=== PATIENT | female | born 1985 | race Two or more races ===

== ENCOUNTER 2024-08-23 20:25 | Emergency (ER) | payer MEDICAID, OTHER ==
[~2024-08-23] VITALS: Ht 154.9 cm; Wt 81.7 kg
[2024-08-23] MEDS ORDERED: FUROSEMIDE 40 MG/4 ML VIAL IV ONE (20:45)
--- NOTE | 2024-08-23 20:55 | ED.PDOC ---
Musculoskeletal HPI Comments 39 y/o developmentally delayed F, with a history of CHF on Lasix and CKF, is BIBA for c/o bilateral leg pain and swelling. Per EMS report, patient is a resident of a board and care assisted living facility and called for additional sudden and unprovoked onset of 9/10 pain following a 4x day history of swelling to her legs. Vitals were noted to have been stable and within normal limits, with exception of being slightly tachycardic. Staff at facility endorses on patient being compliant with her Lasix. At time of assessment, patient also endorses of neck pain and generalized bodyaches. She denies any chest pain, shortness of breath, palpitations, numbness, tingling, fever, chills, or further associated symptoms. Chief Complaint: Lower Extremity Time Seen by MD: 20:40 Reviewed Notes: Nurses Notes, Esl Professor Notes, Medications, Allergies Allergies: Coded Allergies: NO KNOWN ALLERGIES (Unverified , 08/23/24) Information Source: Patient, Emergency Med Personnel Mode of Arrival: EMS Location: Bilateral Extremity Location: Leg Timing: Days Prehospital treatment: 12 Lead EKG, Accucheck, Operator Technician Severity: Moderate Able to Move Extremity: Yes Bear Weight: Limited Pain: Moderate Mechanism: Spontaneous Circumstances: Spontaneous Onset of Symptoms: Spontaneous Symptoms: Swelling, Pain DVT Risk Factors: CHF Last Tetanus: Unknown Review of Systems: REVIEW OF SYSTEMS: No fever, no chills, or fatigue HEENT: No sore throat, no earache, no congestion, no neck pain. Cardiac: No chest pain. No palpitations. Lungs: No shortness of breath, no cough. GI: No nausea, no vomiting, no diarrhea, no constipation, no abdominal pain : No dysuria, frequency, or urgency. No hematuria. Musculoskeletal: Bilateral leg pain and swelling. Neck pain. Generalized bodyaches. No joint pain , no joint swelling, no extremity edema. Skin: No rash, no itching. Neuro: No headache, no dizziness, no weakness Vital Signs Vital Signs Date Time Temp Pulse Resp B/P (MAP) Pulse Ox O2 Delivery O2 Flow Rate FiO2 08/23/24 20:55 103 08/23/24 20:38 98.3 18 127/79 (95) 100 98.3 Physical Exam General: Awake, alert and oriented. No acute distress. Skin: Skin in warm, dry and intact. Appropriate color for ethnicity. HEENT: The head is normocephalic and atraumatic. Conjunctivae are clear without exudates or hemorrhage. Sclera is non-icteric. EOM are intact. No signs of nystagmus. Eyelids are normal in appearance without swelling or lesions. Oral mucosa is pink and moist Neck: The neck is supple with normal range of motion. No JVD. Cardiac: Heart rate and rhythm are normal. No murmurs, gallops, or rubs are auscultated. Respiratory: No signs of respiratory distress. Lung sounds are clear in all lobes bilaterally without rales, rhonchi, or wheezes. Abdominal: Abdomen is soft, non-tender without distention, guarding or rigidity. Bowel sounds are present and normoactive in all four quadrants. Extremities: 1+ pitting edema to bilateral lower extremities. Otherwise, upper and lower extremities are atraumatic in appearance without deformity. Upper extremities without edema Neurological: The patient is awake, alert and oriented to person, place, and time with normal speech. Speech is clear. There is no facial asymmetry. Psychiatric: Appropriate mood and affect. Good judgement and insight. Past Medical History PAST MEDICAL HISTORY: CHF (on Lasix), CKF Past Medical History (Other): developmental delay obese Surgical History: Denies all surgeries GENERAL SURGEON History: Denies all GENERAL SURGEON Hx Family History Family History: Unknown Social History Smoker: Non-Smoker Alcohol: Denies ETOH Use Drugs: Denies Drug Use Lives In: Assisted Care ([facility] and care facility) Was a procedure done? Was a procedure done?: No EKG EKG : Pulse Rate (adult): 103 [place]: Normal Cardiac Rhythm: ST Block: None Hypertrophy: None ST: Normal Comments QTC 540 No STEMI Differential Diagnosis EXT Differential Diagnosis: Cellulitis, CHF, Deep Vein Thrombosis, Sprain, Contusion, Strain, Neurovascular injury X-Ray, Labs, Meds, VS Vital Signs Date Time Temp Pulse Resp B/P (MAP) Pulse Ox O2 Delivery O2 Flow Rate FiO2 08/23/24 20:55 103 08/23/24 20:43 103 08/23/24 20:38 98.3 101 18 127/79 (95) 100 98.3 Lab Test 08/23/24 21:02 Range/Units White Blood Count 5.2 4.4-10.8 10^3/uL Red Blood Count 3.02 L 4.0-5.20 10^6/uL Hemoglobin 9.9 L 12.2-16.2 g/dL Hematocrit 29.5 L 36.0-46.0 % Mean Corpuscular Volume 97.5 80.0-100.0 fL Mean Corpuscular Hemoglobin 32.8 H 28.0-32.0 pg Mean Corpuscular Hemoglobin Concent 33.7 32.0-36.0 g/dL Red Cell Distribution Width 13.2 11.8-14.3 % Platelet Count 115 L 140-450 10^3/uL Mean Platelet Volume 9.2 6.9-10.8 fL Neutrophils (%) (Auto) 57.2 37.0-80.0 % Lymphocytes (%) (Auto) 31.6 10.0-50.0 % Monocytes (%) (Auto) 10.1 0.0-12.0 % Eosinophils (%) (Auto) 0.8 0.0-7.0 % Basophils (%) (Auto) 0.3 0.0-2.0 % Neutrophils # (Auto) 3.0 1.6-8.6 10 ^3/uL Lymphocytes # (Auto) 1.7 0.4-5.4 10 ^3/uL Monocytes # (Auto) 0.5 0-1.3 10 ^3/uL Eosinophils # (Auto) 0 0-0.8 10 ^3/uL Basophils # (Auto) 0 0-0.2 10 ^3/uL Nucleated Red Blood Cells 0.1 % Sodium Level 143 136-145 mmol/L Potassium Level 3.2 L 3.5-5.1 mmol/L Chloride Level 109 H 98-107 mmol/L Carbon Dioxide Level 23 20-31 mmol/L Anion Gap 11 5-15 Blood Urea Nitrogen 20 9-23 mg/dL Creatinine 1.27 H 0.550-1.02 mg/dL Glomerular Filtration Rate Calc 54 >90 mL/min BUN/Creatinine Ratio 15.7 10.0-20.0 Serum Glucose 81 74-106 mg/dL Calcium Level 7.7 L 8.7-10.4 mg/dL B-Type Natriuretic Peptide 69.27 0-100 pg/mL Time of 1ST Reevaluation: 21:10 Reevaluation 1ST: Unchanged Patient Education/Counseling: Treatment Family Education/Counseling: No Family Present Departure 1 Departure Time of Disposition: 00:28 Impression: Primary Impression: Peripheral edema Additional Impression: Hypokalemia Disposition: 01 HOME / SELF CARE / HOMELESS Condition: Stable Additional Instructions: ED DISCHARGE INSTRUCTIONS Instructions: Please read all instructions provided in this packet carefully. Although you have been discharged from the Emergency Department, this does not mean that you have a "clean bill of health". []No definitive diagnosis for your symptoms has been made today. It is possible that you are in the process of developing a serious illness. This is why you must return to the ED without fail if any new or worsening symptoms (especially if your symptoms include chest pain, trouble breathing, abdominal pain, fever, headache, confusion, trouble seeing, or trouble walking) It is also very important that you see a primary care doctor within the next 3-5 days to follow up. If you are unable to get an appointment, return to the ED for re-evaluation. PERIPHERAL EDEMA EDUCATION Edema is the medical term for swelling caused by a collection of fluid in the spaces that surround the body's tissues and organs. Edema can occur nearly anywhere in the body. Some of the most common sites are: ?The lower legs or hands (also called peripheral edema) ?Abdomen (also called ascites) ?Chest (called pulmonary edema if in the lungs, and pleural effusion if in the space surrounding the lungs) Ascites and peripheral edema can be uncomfortable and can be a sign of a more serious condition. Pulmonary edema, which makes it difficult to breathe and can be life threatening, is a symptom of heart failure and is discussed in more detail separately. (See "Patient education: Heart failure (Beyond the Basics)".) EDEMA SYMPTOMS Symptoms of edema depend upon the cause but may include: ?Swelling or puffiness of the skin, causing it to appear stretched and shiny. This typically is worse in the areas of the body that are closest to the ground (because of gravity). Therefore, edema is generally the worst in the lower legs (called peripheral edema) after walking about, standing, sitting in a chair for a period of time, or at the end of the day. It accumulates in the lower back (called sacral edema) after being in bed for several hours. Pushing on the swollen area for a few seconds will leave a temporary dimple or dent in the skin (figure 1). ?Increased size of the abdomen (with ascites). ?Difficulty breathing (with edema in the chest). CONDITIONS ASSOCIATED WITH EDEMA A number of different problems can cause edema. Chronic venous disease A common cause of edema in the lower legs is chronic venous disease, a condition in which the veins in the legs cannot pump enough blood back up to the heart because the valves in the veins are damaged. This can lead to fluid collecting in the lower legs, thinning of the skin, and, in some cases, development of skin sores (ulcers). (See "Patient education: Lower extremity chronic venous disease (Beyond the Basics)".) Edema can also develop as a result of a blood clot in the deep veins of the lower leg (called deep vein thrombosis [DVT]). In this case, the edema is mostly limited to the feet or ankles and usually affects only one side (the left or ri ght); other conditions that cause edema usually cause swelling of both legs. (See "Patient education: Deep vein thrombosis (DVT) (Beyond the Basics)".) women retain extra fluid. Swelling commonly develops in the hands, feet, and face, especially near the end of a normal . Swelling without other symptoms and findings is common and is not usually a sign that a complication, such as preeclampsia (sometimes called toxemia), has developed. (See "Patient education: Preeclampsia (Beyond the Basics)".) Monthly menstrual periods Edema in women that occurs in a cyclic pattern (usually once per month) can be the result of hormonal changes related to the menstrual cycle. This type of edema is common but does not require treatment, because it resolves on its own. Drugs Edema can be a side effect of a variety of medications, including some oral diabetes medications, high blood pressure medications, non-prescription pain relievers (such as ibuprofen), and estrogens. Kidney disease The edema of kidney disease can cause swelling in the lower legs and around the eyes. (See "Patient education: Chronic kidney disease (Beyond the Basics)".) Heart failure Heart failure, also called congestive heart failure, is due to a weakened heart, which impairs its pumping action. Heart failure can cause swelling in the legs and abdomen, as well as other symptoms. Heart failure can also cause fluid to accumulate in the lungs (pulmonary edema), causing shortness of breath. This can be a very dangerous condition requiring emergency treatment. (See "Patient education: Heart failure (Beyond the Basics)".) Cirrhosis Cirrhosis is scarring of the liver from various causes, which can obstruct blood flow through the liver. People with cirrhosis can develop pro nounced swelling in the abdomen (ascites) or in the lower legs (peripheral edema). (See "Patient education: Cirrhosis (Beyond the Basics)".) Travel Sitting for prolonged periods, such as during air travel, can cause swelling in the lower legs. This is common and is not usually a sign of a problem. The table provides tips to minimize leg swelling during travel (table 1). If your leg(s) remain swollen or you develop leg pain hours or days after the flight, contact your healthcare provider. Continued swelling and pain can be signs of a blood clot (DVT). (See "Patient education: Deep vein thrombosis (DVT) (Beyond the Basics)".) Angioedema Reactions to some medications and some inherited disorders can cause fluid to leak out of the blood vessels into surrounding tissues (angioedema). This can cause rapid swelling in the face, lips, tongue, mouth, throat, voice box, limbs, or genitals. Symptoms may include hoarse voice, throat tightness, and difficulty swallowing. Swelling of the throat can interfere with breathing and may be life threatening. Sometimes, this type of swelling occurs in the bowel (the intestinal wall) and can result in abdominal pain. Lymphedema Surgical removal of lymph nodes for the treatment of cancer (most commonly breast cancer) can cause swelling of a limb or limbs with thickening of the skin on the side of the surgery. Swelling of both legs because of lymph problems can also be an inherited condition that becomes apparent in childhood or young adulthood. Lymphedema can also be caused by infection, trauma, or obesity. DIAGNOSING THE CAUSE OF EDEMA If you develop new swelling in one or both of your legs, hands, in your abdomen, or around your eyes, you should call your healthcare provider to determine if you need to be evaluated. (See "Clinical manifestations and evaluation of edema in adults".) If you develop a sudden onset of swelling in the lips, tongue, or mouth, especially if it affects your ability to talk or breathe, you should go to an emergency department immediately. EDEMA TREATMENT Treatment of edema includes several components: treatment of the underlying cause (if possible), reducing the amount of salt (sodium) in your diet, and, in many cases, use of a medication called a diuretic to eliminate excess fluid. Using compression stockings and elevating the legs may also be recommended. (See "General principles of the treatment of edema in adults".) Not all types of edema require treatment. Edema related to or menstrual cycles is not usually treated. Peripheral edema and ascites are usually treated slowly to minimize the side effects of rapid fluid loss (such as low blood pressure). Reduce salt (sodium) in your diet Sodium, which is found in table salt and processed foods, can worsen edema. Reducing the amount of salt you consume can help to reduce edema, especially if you also take a diuretic. Guidelines on how to reduce sodium are available separately. (See "Patient education: Low-sodium diet (Beyond the Basics)".) Diuretics Diuretics are a type of medication that causes the kidneys to excrete more water and sodium, which can reduce edema. Diuretics must be used with care because removing too much fluid too quickly can lower the blood pressure, cause lightheadedness or fainting, and impair kidney function. You may have to empty your bladder more frequently after taking a diuretic. However, other side effects are uncommon when diuretics are taken at the recommended dose. Compression stockings Leg edema can be prevented and treated with the use of compression stockings. Stockings are available in several heights, including knee-high, thigh-high, and pantyhose. Knee-high stockings are sufficient for most patients. Some stockings can cause skin irritation or pain, although proper measurement and fitting of the stockings can reduce the risk of discomfort. More detailed compression stocking tips are available in the table (table 2 and figure 2A-C). Effective compression stockings apply the greatest amount of pressure at the ankle and gradually decrease the pressure up the leg. These stockings are available with varying degrees of compression. ?Stockings with small amounts of compression can be purchased at pharmacies and surgical supply stores without a prescription. ?People with moderate to severe edema, those on their feet a lot, and those with ulcers usually require prescription stockings. A healthcare provider may take measurements for stockings or may write a prescription for stockings and then have a surgical supply or specialty store take the necessary measurements. ?The white "antiembolism" stockings commonly given in the hospital do not apply enough pressure at the ankle and are not adequate treatment for edema. Body positioning Leg, ankle, and foot edema can be improved by elevating the legs above heart level for 30 minutes three or four times per day. Elevating the legs may be sufficient to reduce or eliminate edema for people with mild venous disease, but more severe cases require other measures. In addition, it may not be practical for those who work to elevate their legs several times per day. Author: Gonzalo Otto MD Section Urgent Care Technician: Jimi Fairchild MD [place] Editors: Isi Oliveros MD, Heather Carpio MD, MSc All topics are updated as new evidence becomes available and our peer review process is complete. Literature review current through: Nov 2023. This topic last updated: Oct 06, 2022. Please read the Disclaimer at the end of this page. Disclaimer: This generalized information is a limited summary of diagnosis, treatment, and/or medication information. It is not meant to be comprehensive and should be used as a tool to help the user understand and/or assess potential diagnostic and treatment options. It does NOT include all information about conditions, treatments, medications, side effects, or risks that may apply to a specific patient. It is not intended to be medical advice or a substitute for the medical advice, diagnosis, or treatment of a health care provider based on the health care provider's examination and assessment of a patient's specific and unique circumstances. Patients must speak with a health care provider for complete information about their health, medical questions, and treatment options, including any risks or benefits regarding use of medications. This information does not endorse any treatments or medications as safe, effective, or approved for treating a specific patient. [employer] and its affiliates disclaim any warranty or liability relating to this information or the use thereof. The use of this information is governed by the Terms of Use, available at https://www.woltersRodatiuwer.com/en/know/apgoehip-zbqwdgsnjosfb-gtpes. 2023 [employer] and its affiliates and/or licensors. All rights reserved. Topic 4413 Version 25.0 e-Prescriptions Potassium Chloride (Klor-Con M10) 10 Meq Tab 1 TAB PO DAILY for 7 Days, #7 TAB 5 Refills Prov: AGUSTÍN CARMONA MD 08/24/24 Elastic Bandages & Supports (MEDICAL COMPRESSION STOCK) Stocking Mis UNITS XX, #2 Prov: AGUSTÍN CARMONA MD 08/24/24 Comments 39-year-old female with history of CHF presents to the emergency department with bilateral lower extremity edema. Chest x-ray, labs not consistent with acute CHF exacerbation. Do not suspect DVT. Patient is not hypoxic, in respiratory distress and reporting no dyspnea. Patient reports improvement of symptoms during the ED observation, she would like to go home. Patient well-appearing, nontoxic. Advised prompt follow-up with PCP, return to the ED with any new, worsening or concerning symptoms. ------ I reviewed the following notes from the pt's past medical encounters: N/A The following tests were ordered, and results were reviewed by me: (See diagnostic results section) The following test were independently interpreted by me: N/A Additional information was gathered from interviewing the following independent historians: EMS personnel I reviewed and agreed with the following test results read by other providers: N/A I discussed treatments and results with patient Decision regarding hospitalization or escalation of hospital level of care: Risks and benefits of admission for further treatment of patient's condition was considered however due to patient's stable condition patient will be discharged to follow up closely or return to care for worsening of condition or inability to follow up. Critical Care Note Critical Care Time?: No Stability Stability form required: No Heart Score Heart Score: Heart Score Response (Comments) Value History N/A 0 EKG N/A 0 Age N/A 0 Risk Factors N/A 0 Troponin N/A 0 Total 0 I personally scribed for AGUSTÍN CARMONA MD ([email or web address]) on 08/23/24 at 20:55. Electronically submitted by David Sagastume ([email or web address]). AGUSTÍN CARMONA MD Aug 23, 2024 20:55
[2024-08-23 21:21] LABS: Basophils # (auto) 0 10 ^3/uL (0-0.2); Basophils % (auto) 0.3 % (0.0-2.0); Eosinophils # (auto) 0 10 ^3/uL (0-0.8); Eosinophils % (auto) 0.8 % (0.0-7.0); Hematocrit 29.5 % (36.0-46.0); Hemoglobin 9.9 g/dL (12.2-16.2); Lymphocytes # (auto) 1.7 10 ^3/uL (0.4-5.4); Lymphocytes % (auto) 31.6 % (10.0-50.0); Mean Corpuscular Hemoglobin 32.8 pg (28.0-32.0); Mean Corpuscular Hgb Conc. 33.7 g/dL (32.0-36.0); Mean Corpuscular Volume 97.5 fL (80.0-100.0); Monocytes # (auto) 0.5 10 ^3/uL (0-1.3); Monocytes % (auto) 10.1 % (0.0-12.0); Neutrophils % (auto) 57.2 % (37.0-80.0); Nucleated Red Blood Cells % 0.1 %; Platelet Count (auto) 115 10^3/uL (140-450); Red Blood Cells 3.02 10^6/uL (4.0-5.20); Red Cell Distribution Width 13.2 % (11.8-14.3); White Blood Cell 5.2 10^3/uL (4.4-10.8)
[2024-08-23 21:27] LABS: Sodium 143 mmol/L (136-145)
[2024-08-23 21:28] LABS: Anion Gap 11 (5-15); Carbon Dioxide 23 mmol/L (20-31)
[2024-08-23 21:33] LABS: BUN/Creatinine Ratio 15.7 (10.0-20.0); Blood Urea Nitrogen 20 mg/dL (9-23); Glucose 81 mg/dL (74-106)
[2024-08-23 21:47] LABS: Calcium 7.7 mg/dL (8.7-10.4); Chloride 109 mmol/L (98-107); Potassium 3.2 mmol/L (3.5-5.1)
[2024-08-24] MEDS ORDERED: ELAS-2314 XX (00:28)
[2024-08-24] MEDS ORDERED: POTA-215 PO (00:28)
[2024-08-24 00:34] VITALS: BP 108/66; PULSE 94; RESP 14; TEMP 97.3; O2SAT 100
[2024-08-24] MEDS: FUROSEMIDE 40 MG TAB PO ONE (00:41)
[2024-08-24] MEDS: ACETAMINOPHEN 325 MG TAB PO ONE (00:41)
[2024-08-24] MEDS: POTASSIUM CHL 20 Meq TABLET PO ONE (00:41)
--- NOTE | 2024-08-24 00:42 | DVH ---
CHEST RADIOGRAPH Indication: Rule out CHF, SOB Technique: Frontal and lateral view of the chest was obtained Comparison: None FINDINGS/IMPRESSION: The lungs are clear. The cardiomediastinal silhouette is unremarkable. No pleural effusion or pneumo thorax. No acute osseous abnormality.
--- NOTE | 2024-08-24 07:17 | ECG ---
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
== END 2024-08-24 02:04 | disposition home or self-care (01) ==
LOC: EDBD 20:25 → ER 20:25
DX: R60.0 Localized edema (principal); E87.6 Hypokalemia; N18.9 Chronic kidney disease, unspecified; I50.9 Heart failure, unspecified; E66.9 Obesity, unspecified; Z68.34 Body mass index [BMI] 34.0-34.9, adult
CPT/HCPCS: 36415; 71046; 80048; 83880; 85025; 93005

== ENCOUNTER 2024-08-28 22:51 | Inpatient (IN) | payer MEDICAID ==
[~2024-08-28] VITALS: Ht 160 cm; Wt 91.0 kg
[~2024-08-28 22:51] MED LIST: ELAS-2314 XX; POTA-215 PO
--- NOTE | 2024-08-28 23:15 | ED.PDOC ---
History of Present Illness HPI Comments 39-year-old, obese and developmentally delayed female is brought in by ambulance from alf for chest pain and shortness of breath. Symptoms began, suddenly and unprovoked, this evening. Pain is nonradiating and localized in her upper sternum. Patient has a history of CHF - on Lasix, CKF, HLD, HTN, hypothyroidism, bipolar disorder, and schizophrenia. Vitals were noted to have been stable within normal limits. Patient denies having any cough, congestion, nausea, vomiting, fever, chills, or further associated symptoms. Time Seen by MD: 23:10 Reviewed Notes: Nurses Notes, Hearing Specialist Notes, Medications, Allergies Allergies: Coded Allergies: NO KNOWN ALLERGIES (Unverified , 08/23/24) Home Meds Active Scripts Potassium Chloride (Klor-Con M10) 10 Meq Tab, 1 TAB PO DAILY for 7 Days, #7 TAB 5 Refills Prov:AGUSTÍN CARMONA MD 08/24/24 Elastic Bandages & Supports (MEDICAL COMPRESSION STOCK) Stocking Mis, UNITS XX, #2 Prov:AGUSTÍN CARMONA MD 08/24/24 Information Source: Patient, Emergency Med Personnel Mode of Arrival: EMS Severity: Moderate Timing: Hours Duration: Since onset Prehospital treatment: 12 Lead EKG, Thermograph Operator Past Medical History PAST MEDICAL HISTORY: CHF, CKF, High Lipids, HTN, Schizophrenia, Thyroid (Hypothyroidism) Past Medical History (Other): Developmental delay Bipolar disorder Surgical History: Denies all surgeries [employer] History: Denies all [employer] Hx Family History Family History: Unknown Social History Smoker: Non-Smoker Alcohol: Denies ETOH Use Drugs: Denies Drug Use Lives In: Assisted Care (skilled nursing) All Other Systems: Reviewed and Negative (Comprehensive systems review obtained and negative except for what is stated in the HPI.) Physical Exam General Appearance: No Apparent Distress, Obese, Other (Appear uncomfortable ) HEENT: Normal ENT Inspection, Pharynx Normal, TMs Normal Neck: Full Range of Motion, Non-Tender, Normal, Normal Inspection Respiratory: Chest Non-Tender, Lungs Clear, No Accessory Muscle Use, No Respiratory Distress, Normal Breath Sounds Cardiovascular: No Edema, No JVD, No Murmur, No Gallop, Normal Peripheral Pulses, Regular Rate/Rhythm Breast Exam: Deferred Gastrointestinal: No Organomegaly, Non Tender, No Pulsatile Mass, Normal Bowel Sounds, Soft Genitalia: Deferred Pelvic: Deferred Rectal: Deferred Extremities: No calf tenderness, Normal capillary refill, Normal inspection, Normal range of motion, Non-tender, No pedal edema Musculoskeletal : Apperance: Normal Neurologic: Alert, floor representative II-XII nml as Tested, No Motor Deficits, Normal Affect, Normal Mood, No Sensory Deficits Cerebellar Function: Normal Reflexes: Normal Skin: Dry, Normal Color, Warm Lymphatic: No Adenopathy Was a procedure done? Was a procedure done?: No EKG EKG : Pulse Rate (adult): 109 [place]: Normal Cardiac Rhythm: ST Block: None Hypertrophy: None ST: Normal Differential Dx Considerations may include: Acute CHF exacerbation, MO, PE, ACS, URI, pneumonia, anxiety, angina, costochondritis, pericarditis, viral syndrome, among others X-Ray, Labs, Meds, VS Vital Signs Date Time Temp Pulse Resp B/P (MAP) Pulse Ox O2 Delivery O2 Flow Rate FiO2 08/29/24 00:00 108 23 133/83 (100) 96 08/28/24 23:20 97.8 108 20 126/79 (95) 95 97.8 08/28/24 23:20 108 20 95 Room Air* 0 21 08/28/24 23:15 109 08/28/24 23:01 97.7 106 20 125/77 (93) 97 97.7 08/28/24 23:00 109 Lab Test 08/29/24 00:40 08/29/24 00:12 08/29/24 00:05 08/28/24 23:23 Range/Units Troponin I High Sensitivity Pending 3 L </=34 ng/L POC Glucose 101 70-106 mg/dl Urine Color Colorless Yellow Urine Clarity Clear Clear Urine pH 6.5 5.0-9.0 Urine Specific [place] 1.004 1.001-1.035 Urine Protein Negative Negative Urine Ketones Negative Negative Urine Blood Negative Negative /uL Urine Nitrite Negative Negative Urine Bilirubin Negative Negative Urine Urobilinogen Normal Negative mg/dL Urine Leukocyte Esterase Negative Negative /uL Urine RBC <1 0 - 4 /hpf Urine Microscopic WBC < 1 0-5 /HPF Urine Squamous Epithelial Cells Few <5 /hpf Urine Bacteria None seen None Seen /hpf Urine Glucose Normal Normal mg/dL White Blood Count 6.3 4.4-10.8 10^3/uL Red Blood Count 3.00 L 4.0-5.20 10^6/uL Hemoglobin 9.8 L 12.2-16.2 g/dL Hematocrit 29.0 L 36.0-46.0 % Mean Corpuscular Volume 96.5 80.0-100.0 fL Mean Corpuscular Hemoglobin 32.8 H 28.0-32.0 pg Mean Corpuscular Hemoglobin Concent 34.0 32.0-36.0 g/dL Red Cell Distribution Width 13.1 11.8-14.3 % Platelet Count 118 L 140-450 10^3/uL Mean Platelet Volume 9.7 6.9-10.8 fL Neutrophils (%) (Auto) 59.8 37.0-80.0 % Lymphocytes (%) (Auto) 29.4 10.0-50.0 % Monocytes (%) (Auto) 9.4 0.0-12.0 % Eosinophils (%) (Auto) 0.9 0.0-7.0 % Basophils (%) (Auto) 0.5 0.0-2.0 % Neutrophils # (Auto) 3.8 1.6-8.6 10 ^3/uL Lymphocytes # (Auto) 1.9 0.4-5.4 10 ^3/uL Monocytes # (Auto) 0.6 0-1.3 10 ^3/uL Eosinophils # (Auto) 0.1 0-0.8 10 ^3/uL Basophils # (Auto) 0 0-0.2 10 ^3/uL Nucleated Red Blood Cells 0.0 % Sodium Level 141 136-145 mmol/L Potassium Level 3.4 L 3.5-5.1 mmol/L Chloride Level 105 98-107 mmol/L Carbon Dioxide Level 25 20-31 mmol/L Anion Gap 11 5-15 Blood Urea Nitrogen 17 9-23 mg/dL Creatinine 1.23 H 0.550-1.02 mg/dL Glomerular Filtration Rate Calc 57 >90 mL/min BUN/Creatinine Ratio 13.8 10.0-20.0 Serum Glucose 90 74-106 mg/dL Calcium Level 6.7 L 8.7-10.4 mg/dL [facility] [id number] [facility] [address] Ph: [phone] DIAGNOSTIC IMAGING Diagnostic Imaging Report : [id number] Signed PATIENT: CHAD CONKLIN ACCT: [id number] UNIT: [id number] : 1985 LOC: ER ROOM / BED: / AGE / SEX: 39 / F ADM STATUS: REG ER SERVICE 1113 ORDERING PHYSICIAN: ТАТЬЯНА REZA MD PROCEDURE(s): CXRP - CHEST PORTABLE REASON: chest pain ORDER NUMBER(s): [id number], ACCESSION NUMBER(s): [id number] CHEST RADIOGRAPH Indication: chest pain Technique: Single frontal view of the chest was obtained COMPARISON: None FINDINGS: Lines and Tubes: None Lungs: Clear Pleura: No effusion. No pneumothorax. Cardiomediastinal contours: Unremarkable Bones: Unremarkable IMPRESSION: 1. No acute disease. ATED BY: MURALI ESPINOSA MD DICTATED DATE/TIME: 08/29/2418 SIGNED BY: MURALI ESPINOSA MD SIGNED DATE/TIME: 08/29/2418 CC: Time of 1ST Reevaluation: 23:40 Reevaluation 1ST: Unchanged Patient Education/Counseling: Diagnosis, Treatment Family Education/Counseling: No Family Present Additional Information Previous visits reviewed: August 23, 2024 encounter for peripheral edema The following tests were ordered, and results were reviewed by me: EKG, chest x-ray, CBC, BNP, BMP UA, troponin Additional Information was gathered from interviewing the following independent historians: EMS I reviewed and agreed with the following test results read by other providers: Chest x-ray I discussed treatment and results with medical personnel and: patient SEPSIS Sepsis Screen Physician Orders Electrocardigram (08/28/24 23:14) Chest Portable (08/28/24 23:15) Troponin-I Hs (08/29/24 00:15) Troponin-I Hs (08/29/24 02:15) Vital Signs Date Time Temp Pulse Resp B/P (MAP) Pulse Ox O2 Delivery O2 Flow Rate FiO2 08/29/24 00:00 108 23 133/83 (100) 96 08/28/24 23:20 97.8 108 20 126/79 (95) 95 97.8 08/28/24 23:20 108 20 95 Room Air* 0 21 08/28/24 23:15 109 6/23/25 23:01 97.7 106 20 125/77 (93) 97 97.7 08/28/24 23:00 109 Laboratory Tests Test 08/28/24 23:23 White Blood Count 6.3 10^3/uL (4.4-10.8) Departure 1 Departure Time of Disposition: 01:12 (Patient with a worsening chest is clear and shortness of breath. Give patient has many comorbidities. We will admit patient for further workup and expert consultation) Impression: Primary Impression: Acute chest pain Additional Impressions: Shortness of breath Hypocalcemia Disposition: ADMITTED INPATIENT Admit to: Med Surg Condition: Guarded Critical Care Note Critical Care Time?: Yes Critical care comment: Acute chest pain Authorized and Performed by: Татьяна Reza MD Total critical care time: Approximately 38 minutes Due to a high probability of clinically significant, life threatening deterioration, the patient required my highest level of preparedness to intervene emergently and I personally spent this critical care time directly and personally managing the patient. This critical care time included obtaining a history; examining the patient; pulse oximetry; ordering and review of studies; arranging urgent treatment with development of a management plan; evaluation of patient's response to treatment; frequent reassessment; and, discussions with o ther providers. This critical care time was performed to assess and manage the high probability of imminent, life-threatening deterioration that could result in multi-organ failure. It was exclusive of separately billable procedures and treating other patients and teaching time. Please see my other sections and the rest of the note for further information on patient assessment and treatment. Stability Stability form required: No Heart Score Heart Score: Heart Score Response (Comments) Value History Moderate Suspicious 1 EKG Repolarization Disturb 1 Age <45 0 Risk Factors >3 or Hx ASHD 2 Troponin Normal limit 0 Total 4 I personally scribed for ТАТЬЯНА REZA MD ([email or web address]) on 08/28/24 at 23:15. Electronically submitted by David Sagastume ([email or web address]). I personally scribed for ТАТЬЯНА REZA MD ([email or web address]) on 08/29/24 at 01:09. Electronically submitted by David Sagastume ([email or web address]). ТАТЬЯНА REZA MD Aug 28, 2024 23:15
[2024-08-28 23:20] VITALS: PULSE 108; RESP 20; O2SAT 95
[2024-08-28 23:37] LABS: Basophils # (auto) 0 10 ^3/uL (0-0.2); Basophils % (auto) 0.5 % (0.0-2.0); Eosinophils # (auto) 0.1 10 ^3/uL (0-0.8); Eosinophils % (auto) 0.9 % (0.0-7.0); Hemoglobin 9.8 g/dL (12.2-16.2); Lymphocytes # (auto) 1.9 10 ^3/uL (0.4-5.4); Lymphocytes % (auto) 29.4 % (10.0-50.0); Mean Corpuscular Hemoglobin 32.8 pg (28.0-32.0); Mean Corpuscular Volume 96.5 fL (80.0-100.0); Monocytes # (auto) 0.6 10 ^3/uL (0-1.3); Monocytes % (auto) 9.4 % (0.0-12.0); Neutrophils # (auto) 3.8 10 ^3/uL (1.6-8.6); Neutrophils % (auto) 59.8 % (37.0-80.0); Platelet Count (auto) 118 10^3/uL (140-450); Red Cell Distribution Width 13.1 % (11.8-14.3); White Blood Cell 6.3 10^3/uL (4.4-10.8)
[2024-08-28 23:43] LABS: Chloride 105 mmol/L (98-107); Potassium 3.4 mmol/L (3.5-5.1); Sodium 141 mmol/L (136-145)
[2024-08-28 23:44] LABS: Anion Gap 11 (5-15); Carbon Dioxide 25 mmol/L (20-31)
[2024-08-28 23:49] LABS: BUN/Creatinine Ratio 13.8 (10.0-20.0); Blood Urea Nitrogen 17 mg/dL (9-23); Glucose 90 mg/dL (74-106)
[2024-08-28 23:55] LABS: Calcium 6.7 mg/dL (8.7-10.4)
[2024-08-29] VITALS (8 sets, daily range): BP systolic 111–133; BP diastolic 63–83; PULSE 90–108; RESP 16–20; TEMP 97.5–97.8; O2SAT 94–98
[2024-08-29 00:20] LABS: Urine Bacteria None Seen /hpf (None Seen)
--- NOTE | 2024-08-29 00:22 | DVH ---
CHEST RADIOGRAPH Indication: chest pain Technique: Single frontal view of the chest was obtained COMPARISON: None FINDINGS: Lines and Tubes: None Lungs: Clear Pleura: No effusion. No pneumothorax. Cardiomediastinal contours: Unremarkable Bones: Unremarkable IMPRESSION: 1. No acute disease.
[2024-08-29 00:29] LABS: Urine Blood Negative /uL (Negative); Urine Clarity Clear (Clear); Urine Color Colorless (Yellow); Urine Protein, UAD Negative (Negative); Urine Specific Gravity 1.004 (1.001-1.035); Urine Squamous Epithelial Cell FEW /hpf (<5); Urine Urobilinogen Normal (Negative); Urine WBC < 1 /HPF (0-5); Urine pH 6.5 (5.0-9.0)
--- NOTE | 2024-08-29 03:05 | ECG ---
[facility] Test Date: 2024-08-28 Test Time: 23:00:06 Pat Name: CHAD CONKLIN Department: ED Room: 0297T Gender: F Compensation Associate: ANH : 1985 Requested By: ТАТЬЯНА REZA Order Number: [id number] Reading MD: Aniket Rojas Measurements Intervals [place] Rate: 109 P: 48 WI: 138 QRS: 76 QRSD: 99 T: 20 QT: 392 QTc: 529 Interpretive Statements Sinus tachycardia Low voltage, precordial leads Prolonged QT interval Electronically Signed On 08-29-2024 22:56:33 PDT by Aniket Rojas Please click the below link to view image of tracing.
[2024-08-29] MEDS ORDERED: MORPHINE SULFATE INJ 2 MG/ml SYRG IV PRN (03:45)
[2024-08-29] MEDS ORDERED: ALBUTEROL SULF 2.5 MG/0.5ML(0.5%) NEB SOLN NEB PRN (03:45)
[2024-08-29] MEDS ORDERED: NITROGLYCERIN 0.4 MG SL TAB SL PRN (03:45)
[2024-08-29] MEDS: SODIUM CHLORIDE 0.9% 1,000 ML IV ONE ×2 (03:45→11:43)
[2024-08-29 04:42] LABS: Amphetamine Screen, Urine Neg (NEGATIVE); Barbiturate Scree,Urine Neg (NEGATIVE); Benzodiazephine Screen, Urine Neg (NEGATIVE); Cannabinoid Screen, Urine Neg (NEGATIVE); Cocaine Screen, Urine Neg (NEGATIVE); Opiate Scree,Urine Neg (NEGATIVE); Phencyclidine Screen, Urine Neg (NEGATIVE)
[2024-08-29] MEDS: POTASSIUM EFFERVESENT TAB 25 MEQ PO ONE (05:00)
[2024-08-29] MEDS: levETIRAcetam 500 MG TAB PO ONE (05:01)
[2024-08-29 06:30] LABS: Albumin 3.8 g/dL (3.2-4.8); Alkaline Phosphatase 76 U/L (46-116); Anion Gap 11 (5-15); Aspartate Aminotransferase 23 U/L (<34); BUN/Creatinine Ratio 13.4 (10.0-20.0); Blood Urea Nitrogen 16 mg/dL (9-23); Carbon Dioxide 24 mmol/L (20-31); Chloride 106 mmol/L (98-107); Glucose 85 mg/dL (74-106); Potassium 3.9 mmol/L (3.5-5.1); Sodium 141 mmol/L (136-145); Total Protein 6.4 g/dL (5.7-8.2)
--- NOTE | 2024-08-29 06:31 | DVHHPRES ---
History of Present Illness Resident Creating Document: JIMY CASAS RESIDENT History of Present Illness Patient is a 39-year-old female with a past medical history of hypothyroidism, schizophrenia, seizure disorder, hypertension, CHF presented to the ED with a chief complaint of shortness of breath. Patient reported she lives in a detention and needs suddenly started to have shortness of breath chest pain in her upper sternal which was nonradiating, no aggravating factors. Patient denied any cough, fever, expectoration. On arrival ECG was done which showed sinus tachycardia without any acute ST or T-wave changes. Troponin Levels were within normal limits. Chest x-ray showed cardiomegaly, mild pulmonary vascular congestion but no significant changes compared to previous x-ray. Medical history as per [facility] Surgical history none Social history: Patient lives in a detention, denies any smoking, alcohol, drug use Home medications: As per the records patient is on Lasix 40 mg daily, Keppra 500 b.i.d., lisinopril, divalproex 500 mg b.i.d., schizophrenia, hypothyroidism Review of Systems Review of Systems Patient seen and examined at the bedside does not report of any chest pain or shortness of breath Reports of feeling lethargic Allergies: Coded Allergies: NO KNOWN ALLERGIES (Unverified , 08/23/24) Medications Current Medications Medications Dose Ordered Sig/Ailyn Route Start Time Stop Time Status Last Admin Dose Admin Nitroglycerin 0.4 mg Q5MINP PRN SL 08/29/24 03:45 Morphine Sulfate 2 mg Q30M PRN IV 08/29/24 03:45 Levetiracetam 500 mg BID PO 08/29/24 10:00 Divalproex Sodium 500 mg BID PO 08/29/24 10:00 Risperidone 2 mg DAILY PO 08/29/24 10:00 Levothyroxine Sodium 100 mcg QAM@0600 PO 08/29/24 06:00 Pantoprazole Sodium 40 mg DAILY@0600 PO 08/29/24 06:00 Albuterol 2.5 mg Q8HPRN PRN NEB 08/29/24 03:45 Exam Vital Signs Vital Signs Date Time Temp Pulse Resp B/P (MAP) Pulse Ox O2 Delivery O2 Flow Rate FiO2 08/29/24 04:00 97.8 108 20 133/83 96 21 97.8 08/28/24 23:20 Room Air* 0 Exam Gen - no pallor, no icterus, no cyanosis, no clubbing, no LAD, no edema . Skin - Patients skin is warm and dry. HEENT - normocephalic, atraumatic, moist mucous membranes. Neck - full ROM, no LAD, no JVD Pulmonary - B/L equal breath sounds, no crackles, no wheezing, no stridor. cardiovascular - regular S1,S2 heard, no added sounds, no murmurs heard. GI - soft, nontender abdomen. no hepatospleenomegaly. Bowel sounds normoactive Neurological - Patient is A/O X 2 . Bilateral upper extremity strength 5/5, bilateral lower extremity strength 5/5, no facial droop, normal speech, no tremor, no sensory deficiets. Labs/Xrays Labs Test 08/29/24 05:40 08/29/24 02:57 08/29/24 00:12 08/29/24 00:05 Range/Units Troponin I High Sensitivity 3 L </=34 ng/L POC Glucose 101 70-106 mg/dl Urine Color Colorless Yellow Urine Clarity Clear Clear Urine pH 6.5 5.0-9.0 Urine Specific [place] 1.004 1.001-1.035 Urine Protein Negative Negative Urine Ketones Negative Negative Urine Blood Negative Negative /uL Urine Nitrite Negative Negative Urine Bilirubin Negative Negative Urine Urobilinogen Normal Negative mg/dL Urine Leukocyte Esterase Negative Negative /uL Urine RBC <1 0 - 4 /hpf Urine Microscopic WBC < 1 0-5 /HPF Urine Squamous Epithelial Cells Few <5 /hpf Urine Bacteria None seen None Seen /hpf Urine Glucose Normal Normal mg/dL Urine Opiates Screen Neg NEGATIVE Urine Fentanyl Screen Neg NEGATIVE Urine Barbiturates Screen Neg NEGATIVE Urine Phencyclidine Screen Neg NEGATIVE Urine Amphetamines Screen Neg NEGATIVE Urine Benzodiazepines Screen Neg NEGATIVE Urine Cocaine Screen Neg NEGATIVE Urine Cannabinoids Screen Neg NEGATIVE Test 08/28/24 23:23 Range/Units Eosinophils (%) (Auto) 0.9 0.0-7.0 % Eosinophils # (Auto) 0.1 0-0.8 10 ^3/uL Basophils # (Auto) 0 0-0.2 10 ^3/uL Nucleated Red Blood Cells 0.0 % B-Type Natriuretic Peptide 24.38 0-100 pg/mL Assessment/Plan Assessment/Plan Acute chest pain, rule out ACS Shortness of breath, ?CHF exacerbation H/o CHF, diastolic dysfunction - ECG showed no ST or T-wave changes, troponin normal - echo from August 2024 shows grade 1 diastolic dysfunction - oxygen as needed - currently on room air no signs of distress noted - continued on Lasix 40 mg daily - albuterol med neb as needed H/o seizure disorder H/o schizophrenia - continued on Keppra 500 b.i.d. and divalproex 500 b.i.d. - continued on risperidone, quetiapine 400 mg - QT prolongation, on telemetry H/O hypothyroidism - continued on levothyroxine PUD prophylaxis: Protonix Goals of care discussed with the patient for 18 minutes. Full code Time spent: 38 minute Plan discussed with Dr. Bagley Plan discussed with: Patient My Orders Orders - JIMY CASAS RESIDENT Procedure Category Date Status Time Admit ADMIT 08/29/24 Transmitted 03:43 Nitroglycerin PHA 08/29/24 In Process Sublingual (Ntrostat 03:45 Morphine Sulfate PHA 08/29/24 In Process Injection 03:45 Oxygen By Nasal RT 08/29/24 Transmitted Cannula 03:43 Stat Ekg For Chest NNAMDI 08/29/24 In Process Pain 03:43 Notify Md Of Changes NNAMDI 08/29/24 In Process From Base 03:43 Monument Setter Helper For NNAMDI 08/29/24 In Process 24 Hours 03:43 Emergency Dysrhythmia NNAMDI 08/29/24 In Process Protocol 03:43 Complete Blood Count LAB 08/29/24 In Process 05:00 Comprehensive LAB 08/29/24 In Process Metabolic Panel 05:00 Levetiracetam Tablet PHA 08/29/24 In Process (Keppra Tablet) 10:[address] Tablet PHA 08/29/24 In Process (Depakote "Dr" Tabl 10:00 Risperidone Tablet PHA 08/29/24 In Process (Risperdal Tablet) 10:00 Sodium Chloride 0.9% PHA 08/29/24 In Process 03:45 Magnesium LAB 08/29/24 In Process 05:00 Levothyroxine Tablet PHA 08/29/24 In Process (Synthroid Tablet) 06:00 Pantoprazole Tablet PHA 08/29/24 In Process (Protonix Tablet) 06:00 Albuterol Medneb PHA 6/24/25 In Process (Ventolin Medneb) 03:45 Date of Service: Aug 29, 2024 Billing Provider: JIMY CASAS Common Visit Codes: [id number] INP/OBS CARE (HIGH) Secondary Visit Codes: [id number] CARE PLAN 30 MINUTES JIMY CASAS Aug 29, 2024 06:31
[2024-08-29 06:47] LABS: Hemoglobin 10.2 g/dL (12.2-16.2); Red Cell Distribution Width 13.7 % (11.8-14.3)
[2024-08-29 06:48] LABS: Hematocrit 29.7 % (36.0-46.0); Mean Corpuscular Hemoglobin 33.2 pg (28.0-32.0); Mean Corpuscular Hgb Conc. 34.4 g/dL (32.0-36.0); Mean Corpuscular Volume 96.6 fL (80.0-100.0); Platelet Count (auto) 195 10^3/uL (140-450); Red Blood Cells 3.07 10^6/uL (4.0-5.20); White Blood Cell 7.2 10^3/uL (4.4-10.8)
[2024-08-29 06:50] LABS: Alanine Aminotransferase < 9 U/L (7-40); Bilirubin, Total 0.2 mg/dL (0.2-1.0); Calcium 6.7 mg/dL (8.7-10.4); Magnesium 1.5 mg/dL (1.6-2.6)
[2024-08-29] MEDS: LEVOTHYROXINE SODIUM 100 MCG TAB PO SCH (07:24)
[2024-08-29] MEDS: PANTOPRAZOLE 40 MG TAB PO SCH (07:24)
[2024-08-29 07:29] LABS: Band Neutrophils % (manual) 0; Basophils % (manual) 0 (0.0-2.0); Blast Cells 0; Eosinophils % (manual) 0 (0-7); Metamyelocytes % 0; Myelocytes % 0; Promyelocytes % 0; Reactive Lymphocytes 0
[2024-08-29 08:43] LABS: Lymphocytes % (manual) 23 (10.0-50.0); Monocytes % (manual) 8 (0-12); Platelet Estimate Adequate
[2024-08-29] MEDS ORDERED: FUROSEMIDE 20 MG TAB PO SCH (10:00)
[2024-08-29] MEDS ORDERED: FUROSEMIDE 20 MG/2 ML VIAL IV SCH (10:00)
[2024-08-29] MEDS: MAGNESIUM SULFATE 1GM/100ML 100 ML IV ONE (10:15)
[2024-08-29 10:43] LABS: Protein, Urine < 6.0 mg/dL (1-14)
[2024-08-29 10:45] LABS: Creatinine, Urine 15.62 mg/dL (30.0-125.0); Urine Protein/Creatinine Ratio 0.38
[2024-08-29] MEDS: PANTOPRAZOLE 40 MG/10 ML VIAL INJ IV ONE (11:34)
[2024-08-29] MEDS: risperiDONE 1 MG TAB PO SCH (11:35)
[2024-08-29] MEDS: levETIRAcetam 500 MG TAB PO SCH (11:35)
[2024-08-29 12:16] LABS: COVID19 ANTIGEN SOFIA FIA NEGATIVE (NEGATIVE)
[2024-08-29 12:17] LABS: Rapid Influenza A Negative (Negative); Rapid Influenza B Negative (Negative)
[2024-08-29 15:29] LABS: Anion Gap 9 (5-15); Carbon Dioxide 26 mmol/L (20-31); Sodium 144 mmol/L (136-145)
[2024-08-29 15:35] LABS: BUN/Creatinine Ratio 14.6 (10.0-20.0); Blood Urea Nitrogen 18 mg/dL (9-23); Glucose 85 mg/dL (74-106)
[2024-08-29 15:36] LABS: Calcium 6.9 mg/dL (8.7-10.4); Chloride 109 mmol/L (98-107)
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
--- NOTE | 2024-08-29 16:54 | DVH ---
RENAL ULTRASOUND History: melissa versus CKD Comparison: None Technique: Multiple real-time sonographic images of the kidney and bladder were obtained in conjuncti on with Doppler imaging. Findings: The right kidney measures 9.5 cm and demonstrates no evidence of hydronephrosis, perinephric fluid co llection, or shadowing stone. The left kidney measures 9.6 cm and demonstrates no evidence of hydronephrosis, perinephric fluid col lection, or shadowing stone. Urinary bladder: Distended, volume 283 cc. Patient unable to void. Impression: No hydronephrosis. Distended bladder however patient unable to void.
[2024-08-29] MEDS: ERGOCALCIFEROL 50,000 UNIT(1.25MG) CAP PO SCH (17:31)
[2024-08-29] MEDS: SERTRALINE HCL 50 MG TAB PO ONE (17:31)
[2024-08-29] MEDS: QUEtiapine FUMARATE 100 MG TAB PO SCH (21:16)
--- NOTE | 2024-08-29 23:25 | DVHSR ---
APPROVED REPORT EXAM: Two-dimensional and M-mode echocardiogram with Doppler and color Doppler. Blood Pressure: 115/74 mmHg INDICATION ? CHF RISK FACTORS Height: 5'3", Weight: 199 DIMENSIONS LVDd4.6 (3.8-5.7cm)LA (2D)3.7 (1.9-4.0cm)Aortic Root2.8 (2.0-3.7cm) LVDs2.6 (2.5-4.0cm)LA (MM) (1.9-4.0cm)Aortic Cusp Exc1.5 (1.5-2.0cm) EF (%) 75.0 (55-70%)Rt. Atrium4.2 (1.9-4.0cm)Asc. Aorta cm IVSd0.9 (0.7-1.1cm)RV (D) (1.8-2.4cm) PWd0.7 (0.7-1.1cm) Mitral Valve MitralMitral Stenosis E wave0.82m/sMV Mean GR.mmHg A wave0.76m/sMV Peak GR.mmHg E/A ratio1.12D MVAcm2 DECEL [id number] 1/2 Timems Aortic Valve Aortic ValveAortic Stenosis V10.95m/Blaine Mean GR.4mmHg V21.32m/Blaine Peak GR.7mmHg LVOT Diameter1.8 (1.8-2.4cm)Doppler AVA1.83cm2 Pulmonic Valve V21.00m/s Tricuspid Valve TR Velocity2.35m/s [id number] Other Information Quality : Technically LimitedRhythm : Technically limited study due to body habitus. Pt is developmentally delayed. Conclusion NORMAL LV EF AND IS 75% NORMAL RV FUNCTION NORMAL VALVES NO EFFUSION
[2024-08-30] VITALS (7 sets, daily range): BP systolic 101–128; BP diastolic 59–76; PULSE 86–96; RESP 15–18; TEMP 97.2–98.4; O2SAT 91–96
[2024-08-30 08:18] LABS: Chloride 107 mmol/L (98-107)
[2024-08-30 08:20] LABS: Calcium 7.5 mg/dL (8.7-10.4)
[2024-08-30 08:24] LABS: BUN/Creatinine Ratio 13.8 (10.0-20.0); Blood Urea Nitrogen 17 mg/dL (9-23); Glucose 79 mg/dL (74-106)
[2024-08-30 08:47] LABS: Potassium 3.8 mmol/L (3.5-5.1); Sodium 141 mmol/L (136-145)
[2024-08-30 08:48] LABS: Anion Gap 9 (5-15); Carbon Dioxide 25 mmol/L (20-31)
[2024-08-30] MEDS ORDERED: PANTOPRAZOLE 40 MG/10 ML VIAL INJ IV SCH (10:00)
[2024-08-30] MEDS: SERTRALINE HCL 50 MG TAB PO SCH (10:20)
[2024-08-30] MEDS: ERGOCALCIFEROL 50,000 UNIT(1.25MG) CAP PO SCH (10:21)
[2024-08-30] MEDS ORDERED: SERT50TA PO (14:17)
[2024-08-30] MEDS ORDERED: CHOL500021 OR (14:17)
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
== END 2024-08-30 15:58 | disposition home or self-care (01) | DRG 756 ==
LOC: ER 22:51 → EDBD 22:51 → EDUNIT# 22:51 → OVERFLOW 08-29 03:43 → TELE-WESTW 08-29 16:20 → WEST WING 08-30 08:17
PROVIDERS: ADMIT Student in an Organized Health Care Education/Training Program; ATTEND Student in an Organized Health Care Education/Training Program
DX: F41.0 Panic disorder [episodic paroxysmal anxiety] (principal); N17.0 Acute kidney failure with tubular necrosis; I50.9 Heart failure, unspecified; I11.0 Hypertensive heart disease with heart failure; G40.909 Epilepsy, unspecified, not intractable, without status epilepticus; R62.50 Unspecified lack of expected normal physiological development in childhood; Z20.822 Contact with and (suspected) exposure to COVID-19; Z68.35 Body mass index [BMI] 35.0-35.9, adult; E03.9 Hypothyroidism, unspecified; I10 Essential (primary) hypertension; E66.9 Obesity, unspecified; E78.5 Hyperlipidemia, unspecified; F20.9 Schizophrenia, unspecified; F31.9 Bipolar disorder, unspecified; Z79.899 Other long term (current) drug therapy
CPT/HCPCS: 36415; 71045; 76775; 80048; 80053; 80307; 81001; 82306; 82570; 82607; 82962; 83036; 83735; 83880; 84156; 84300; 84443; 84484; 85007; 85025; 85027; 87426; 87804; 93005; 93306; 96361; 96365; 99291; G0378; J2470

== ENCOUNTER 2024-10-03 10:31 | Inpatient (IN) | payer MEDICAID ==
[~2024-10-03] VITALS: Ht 121.9 cm; Wt 72.7 kg
[~2024-10-03 10:31] MED LIST changes: +CHOL500021 OR; +SERT50TA PO
--- NOTE | 2024-10-03 10:40 | ECG ---
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
--- NOTE | 2024-10-03 10:44 | ED.PDOC ---
HPI Comments A 39 year-old female, with a PMHX of DM, CHF, and Schizophrenia, presents to the ED via EMS with a chief complaint of Left Sided Chest Pain as with associated bilateral leg swelling, left arm pressure and right arm pain as of 0900 this morning. Patient states chest pain is a 6/10, non-radiating, with no associated relieving factors. Patient reports onset of symptoms began spontaneously while sitting in a chair at school. Patient additionally reports non-associated auditory hallucinations. Patient used to take Albuterol and is currently on Lasix. En route, patient was given 324mg Aspirin and 1 nitro, with NSR and 83 BPM. Patient has no further complaints at this time and otherwise denies further associated symptoms of N/V, palpitations, migraine, dizziness, fever, chills, or abdominal pain. Chief Complaint: Chest Pain Time Seen by MD: 10:41 Reviewed Notes: Nurses Notes, Medications, Allergies Allergies: Coded Allergies: NO KNOWN ALLERGIES (Unverified , 08/23/24) Home Meds Active Scripts Cholecalciferol (VITAMIN D) 5,000 Unit Tab, 5000 UNIT OR DAILY for 30 Days, #30 TAB 0 Refills Prov:ROBERT REIS RESIDENT 08/30/24 Sertraline Hcl (Zoloft) 50 Mg Tab, 25 MG PO DAILY for 30 Days, #15 TAB Prov:ROBERT REIS RESIDENT 08/30/24 Potassium Chloride (Klor-Con M10) 10 Meq Tab, 1 TAB PO DAILY for 7 Days, #7 TAB 5 Refills Prov:AGUSTÍN CARMONA MD 08/24/24 Elastic Bandages & Supports (MEDICAL COMPRESSION STOCK) Stocking Mis, UNITS XX, #2 Prov:AGUSTÍN CARMONA MD 08/24/24 Information Source: Patient, Emergency Med Personnel Mode of Arrival: EMS Severity: Moderate Timing: Hours Duration: Since onset Prehospital treatment: 12 Lead EKG Location: Chest (L) Radiation: No Radiation Quality: Pressure Onset: At Rest, With Light Exertion, With Heavy Exertion Cardiac Risk Factors: Diabetes, Other (CHF ) Associated Signs and Symptoms: Other (Arm Pain, bilateral leg swelling ) Past Medical History PAST MEDICAL HISTORY: CHF, CKF, High Lipids, HTN, Schizophrenia, Thyroid Surgical History: Denies all surgeries [employer]EARCH CENTER DIRECTOR History: Denies all [employer] CENTER DIRECTOR Hx Family History Family History: Unknown Social History Smoker: Non-Smoker Alcohol: Denies ETOH Use Drugs: Denies Drug Use Lives In: Assisted Care Constitutional: denies: chills, diaphoresis, fatigue, fever, malaise, sweats, weakness, others EENTM: denies: blurred vision, double vision, ear bleeding, ear discharge, ear drainage, ear pain, ear ringing, eye pain, eye redness, hearing loss, mouth pain, mouth swelling, nasal discharge, nose bleeding, nose congestion, nose pain, photophobia, tearing, throat pain, throat swelling, voice changes, others Respiratory: denies: cough, hemoptysis, orthopnea, SOB at rest, shortness of breath, SOB with excertion, stridor, wheezing, others Cardiovascular: reports: chest pain, others (bilateral leg swelling, left arm pressure and right arm pain); denies: dizzy spells, diaphoresis, Dyspnea on exertion, edema, irregular heart beat, left arm pain, lightheadedness, palpitations, PND, syncope Gastrointestinal: denies: abdomen distended, abdominal pain, blood streaked bowels, constipated, diarrhea, dysphagia, difficulty swallowing, hematemesis, melena, nausea, poor appetite, poor fluid intake, rectal bleeding, rectal pain, vomiting, others Genitourinary: denies: abnormal vagina bleeding, burning, dyspareunia, dysuria, flank pain, frequency, hematuria, incontinence, pain, , vagina discharge, urgency, others Neurological: denies: dizziness, fainting, headache, left sided numbness, left sided weakness, numbness, paresthesia, pre-existing deficit, right sided numbness, right sided weakness, seizure, speech problems, tingling, tremors, weakness, others Musculoskeletal: denies: back pain, gout, joint pain, joint swelling, muscle pain, muscle stiffness, neck pain, others Integumetry: denies: bruises, change in color, change in hair/nails, dryness, laceration, lesions, lumps, rash, wounds, others Allergic/Immunocompromised: denies: Difficulty Healing, Frequent Infections, Hives, Itching, others Hematologic/Lymphatic: denies: anemia, blood clots, easy bleeding, easy bruising, swollen glands, others Endocrine: denies: excessive hunger, excessive sweating, excessive thirst, excessive urination, flushing, intolerance to cold, intolerance to heat, unexplained weight gain, unexplained weight loss, others Psychiatric: denies: anxiety, bipolar disorder, depression, hopeless, panic disorder, schizophrenia, sleepless, suicidal, others All Other Systems: Reviewed and Negative Physical Exam General Appearance: Moderate Distress HEENT: Normal ENT Inspection, Pharynx Normal, TMs Normal Neck: Full Range of Motion, Non-Tender, Normal, Normal Inspection Respiratory: Chest Non-Tender, Lungs Clear, No Accessory Muscle Use, No Respiratory Distress, Normal Breath Sounds Cardiovascular: No Edema, No JVD, No Murmur, No Gallop, Regular Rate/Rhythm Breast Exam: Deferred Gastrointestinal: No Organomegaly, Non Tender, No Pulsatile Mass, Normal Bowel Sounds, Soft Genitalia: Deferred Pelvic: Deferred Rectal: Deferred Extremities: No calf tenderness, Normal capillary refill, Normal inspection, Normal range of motion, Non-tender, No pedal edema Musculoskeletal : Apperance: Normal Neurologic: Alert, cookie padder II-XII nml as Tested, Motor Weakness, Normal Affect, Normal Mood, No Sensory Deficits Cerebellar Function: Normal Reflexes: Normal Skin: Dry, Normal Color, Warm Lymphatic: No Adenopathy EKG EKG : Pulse Rate (adult): 93 [place]: RAD Cardiac Rhythm: NSR Was a procedure done? Was a procedure done?: No CP Differential Dx Differential Diagnosis: A-fib, Sinus Tachycardia Differential Diagnosis: CHF, HTN Essential, HTN Accelerated X-Ray, Labs, Meds, VS Vital Signs Date Time Temp Pulse Resp B/P (MAP) Pulse Ox O2 Delivery O2 Flow Rate FiO2 10/03/24 10:44 93 10/03/24 10:38 93 10/03/24 10:35 98.0 87 18 129/88 98 98.0 Lab Test 10/03/24 11:12 Range/Units White Blood Count 6.3 4.4-10.8 10^3/uL Red Blood Count 3.51 L 4.0-5.20 10^6/uL Hemoglobin 11.4 L 12.2-16.2 g/dL Hematocrit 34.6 L 36.0-46.0 % Mean Corpuscular Volume 98.6 80.0-100.0 fL Mean Corpuscular Hemoglobin 32.5 H 28.0-32.0 pg Mean Corpuscular Hemoglobin Concent 32.9 32.0-36.0 g/dL Red Cell Distribution Width 13.7 11.8-14.3 % Platelet Count 143 140-450 10^3/uL Mean Platelet Volume 9.0 6.9-10.8 fL Neutrophils (%) (Auto) 61.2 37.0-80.0 % Lymphocytes (%) (Auto) 28.9 10.0-50.0 % Monocytes (%) (Auto) 9.2 0.0-12.0 % Eosinophils (%) (Auto) 0.6 0.0-7.0 % Basophils (%) (Auto) 0.1 0.0-2.0 % Neutrophils # (Auto) 3.9 1.6-8.6 10 ^3/uL Lymphocytes # (Auto) 1.8 0.4-5.4 10 ^3/uL Monocytes # (Auto) 0.6 0-1.3 10 ^3/uL Eosinophils # (Auto) 0 0-0.8 10 ^3/uL Basophils # (Auto) 0 0-0.2 10 ^3/uL Nucleated Red Blood Cells 0.1 % Sodium Level 140 136-145 mmol/L Potassium Level 3.8 3.5-5.1 mmol/L Chloride Level 102 98-107 mmol/L Carbon Dioxide Level 25 20-31 mmol/L Anion Gap 13 5-15 Blood Urea Nitrogen 20 9-23 mg/dL Creatinine 1.38 H 0.550-1.02 mg/dL Glomerular Filtration Rate Calc 49 >90 mL/min BUN/Creatinine Ratio 14.5 10.0-20.0 Serum Glucose 80 74-106 mg/dL Calcium Level 7.2 L 8.7-10.4 mg/dL Troponin I High Sensitivity < 3 L </=34 ng/L B-Type Natriuretic Peptide 53.05 0-100 pg/mL The patient's CBC is within normal limits The chemistry panel is within normal limits The troponin level is negative The BNP is 53.05 Based on the chest x-ray we are going to start the patient on Lasix 40 mg IV pu sh The patient is being admitted The patient will have a Cardiology consult. [address] [address] Ph: [phone] DIAGNOSTIC IMAGING Diagnostic Imaging Report : [id number] Signed PATIENT: CHAD CONKLIN ACCT: [id number] UNIT: [id number] : 1985 LOC: ER ROOM / BED: / AGE / SEX: 39 / F ADM STATUS: REG ER SERVICE 1037 ORDERING PHYSICIAN: RUDY PENA MD PROCEDURE(s): CXRP - CHEST PORTABLE REASON: cp ORDER NUMBER(s): [id number], ACCESSION NUMBER(s): [id number] CHEST RADIOGRAPH Indication: cp Technique: XY CHEST PORTABLE COMPARISON: None FINDINGS: The cardiac silhouette is enlarged. The lungs demonstrate bilateral patchy airspace opacities. The pulmonary vasculature is prominent. There is no pleural effusion. There is no pneumothorax. Aortic atherosclerotic disease. Images Reviewed?: Images reviewed and evaluated by me Time of 1ST Reevaluation: 11:10 Reevaluation 1ST: Unchanged Patient Education/Counseling: Diagnosis, Treatment, Prognosis Family Education/Counseling: No Family Present SEPSIS Sepsis Screen Physician Orders Chest Portable (10/03/24 10:37) Heplock Iv (10/03/24 10:37) Licensed Massage Therapist (10/03/24 10:37) Blood Pressure (10/03/24 10:37) Pulse Oximetry (10/03/24 10:37) Urinalysis (10/03/24 10:37) Troponin-I Hs (10/03/24 11:37) Troponin-I Hs (10/03/24 13:37) Electrocardigram (10/03/24 11:37) Electrocardigram (10/03/24 13:37) Vital Signs Date Time Temp Pulse Resp B/P (MAP) Pulse Ox O2 Delivery O2 Flow Rate FiO2 10/03/24 10:44 93 10/03/24 10:38 93 10/03/24 10:35 98.0 87 18 129/88 98 98.0 Laboratory Tests Test 10/03/24 11:12 White Blood Count 6.3 10^3/uL (4.4-10.8) Departure 1 Departure Time of Disposition: 11:48 Impression: Primary Impression: Acute coronary syndrome Additional Impression: Pedal edema Disposition: ADMITTED INPATIENT Admit to: Tele Condition: Fair Critical Care Note Critical Care Time?: Yes (45 min-critical care time only) Stability Stability form required: Yes Unstable for transfer: Telemetry monitoring (Telemetry monitoring required), ED Physician Assesment (Clinical assesment) Heart Score Heart Score: Heart Score Response (Comments) Value History Moderate Suspicious 1 EKG Normal 0 Age <45 0 Risk Factors 1 or 2 risk factors 1 Troponin Normal limit 0 Total 2 I personally scribed for RUDY PENA MD ([email or web address]) on 10/03/24 at 10:44. Electronically submitted by Macrina Lozada ([employer] I personally scribed for RUDY PENA MD ([email or web address]) on 10/03/24 at 11:36. Electronically submitted by Macrina Lozada ([employer] RUDY PENA MD Oct 03, 2024 10:44
[2024-10-03 11:29] LABS: Hematocrit 34.6 % (36.0-46.0); Hemoglobin 11.4 g/dL (12.2-16.2); Mean Corpuscular Hemoglobin 32.5 pg (28.0-32.0); Mean Corpuscular Volume 98.6 fL (80.0-100.0); Nucleated Red Blood Cells % 0.1 %
[2024-10-03 11:35] LABS: Chloride 102 mmol/L (98-107); Potassium 3.8 mmol/L (3.5-5.1); Sodium 140 mmol/L (136-145)
--- NOTE | 2024-10-03 11:35 | DVH ---
CHEST RADIOGRAPH Indication: cp Technique: XY CHEST PORTABLE COMPARISON: None FINDINGS: The cardiac silhouette is enlarged. The lungs demonstrate bilateral patchy airspace opacities. The pu lmonary vasculature is prominent. There is no pleural effusion. There is no pneumothorax. Aortic athe rosclerotic disease. IMPRESSION: Cardiomegaly with pulmonary vascular congestion and bilateral patchy airspace opacities.
[2024-10-03 11:36] LABS: Anion Gap 13 (5-15); Carbon Dioxide 25 mmol/L (20-31)
[2024-10-03 11:41] LABS: BUN/Creatinine Ratio 14.5 (10.0-20.0); Blood Urea Nitrogen 20 mg/dL (9-23); Calcium 7.2 mg/dL (8.7-10.4); Glucose 80 mg/dL (74-106)
[2024-10-03] MEDS: MORPHINE SULFATE 4 MG/ML SYR/VIAL IV ONE (12:50)
[2024-10-03] MEDS: ONDANSETRON HCL 4 MG/2 ML VIAL IV ONE (12:51)
[2024-10-03] MEDS ORDERED: DEXTROSE (50%) 50ML SYRG IV PRN (13:00)
[2024-10-03] MEDS ORDERED: MORPHINE SULFATE INJ 2 MG/ml SYRG IV PRN (13:00)
[2024-10-03] MEDS ORDERED: ACETAMINOPHEN 325 MG TAB PO PRN (13:00)
[2024-10-03] MEDS ORDERED: HYDROcodone-ACET 5/325MG TAB PO PRN (13:00)
[2024-10-03] MEDS ORDERED: DOCUSATE SOD 100 MG CAP PO PRN (13:00)
[2024-10-03] MEDS ORDERED: ONDANSETRON HCL 4 MG/2 ML VIAL IV PRN (13:00)
[2024-10-03] MEDS ORDERED: NITROGLYCERIN 0.4 MG SL TAB SL PRN (13:00)
[2024-10-03] MEDS ORDERED: POTA20TA24 PO (13:01)
[2024-10-03] MEDS ORDERED: FERR325T20 PO (13:01)
[2024-10-03] MEDS ORDERED: FAMO-12 PO (13:01)
[2024-10-03] MEDS ORDERED: SERT25TA28 PO (13:01)
[2024-10-03] MEDS ORDERED: QUET400T13 PO (13:01)
[2024-10-03] MEDS ORDERED: LEVE500T3 PO (13:01)
[2024-10-03] MEDS ORDERED: DIVA500T13 PO (13:01)
[2024-10-03] MEDS ORDERED: SENN-105 PO (13:01)
[2024-10-03] MEDS ORDERED: FURO40TA4 PO (13:01)
[2024-10-03] MEDS ORDERED: LEVO100T8 PO (13:01)
[2024-10-03] MEDS ORDERED: ZOLP5TAB5 PO (13:01)
[2024-10-03] MEDS ORDERED: HYDR50TA32 PO (13:01)
[2024-10-03] MEDS ORDERED: DOCU250C12 PO (13:01)
[2024-10-03] MEDS ORDERED: ATOR40TA52 PO (13:01)
[2024-10-03] MEDS ORDERED: ZOLPIDEM TARTRATE 5 MG TAB PO PRN (13:15)
--- NOTE | 2024-10-03 13:28 | DVHHP2 ---
History of Present Illness Reason for Visit: Chest pain History of Present Illness Aimee Rizo is a -year-old female with past medical history of hypertension, hyperlipidemia, schizophrenia, diabetes, CHF, hypothyroidism, and seizures, who came to the hospital due to chest pain. This is the patient's 3rd time at the hospital in the last 2 months for similar complaint. She had an ECHO completed on 08/29/2024 that showed an EF of 75%, normal RV, and no valve problems. Cardiovascular: CHF, HTN, hyperipidemia IMPROVEMENT RN: Seizure Psych: Schizophrenia Endocrine: Diabetes, Hypothyroidism Past Surgical History: Cholecystectomy Smoke: No ALCOHOL: none Drugs: None Lives: Other ([facility]) Domestic Violence: Neg Review of Systems Constitutional: No: Fever, Chills, Sweats, Weakness, Malaise, Other Eyes: No: Pain, Vision change, Conjunctivae inflammation, Eyelid inflammation, Other, Redness ENT: No: Ear pain, Ear discharge, Nose pain, Nose discharge, Nose congestion, Mouth pain, Mouth swelling, Throat pain, Throat swelling, Other Respiratory: No: Cough, Dry, Shortness of breath, SOB with excertion, Wheezing, Hemoptysis, Pleuritic Pain, Sputum, Wheezing, Other Cardiovascular: Chest Pain, Edema (bilateral lower extremities), Lt Headedness; No: Palpitations, Orthopnea, Paroxysmal Noc. Dyspnea, Other Gastrointestinal: No: Nausea, Vomiting, Abdominal Pain, Diarrhea, Constipation, Melena, Hematochezia, Other Genitourinary: No Dysuria, No Frequency, No Incontinence, No Hematuria, No Retention, No Other Musculoskeletal: No: other, neck pain, shoulder pain, arm pain, back pain, hand pain, leg pain, foot pain Skin: No: Rash, Lesions, Jaundice, Bruising, Other Neurological: No: Weakness, Numbness, Incoordination, Change in speech, Confusion, Seizures, Other Allergies: Coded Allergies: NO KNOWN ALLERGIES (Unverified , 08/23/24) Medications Current Medications Medications Dose Ordered Sig/Ailyn Route Start Time Stop Time Status Last Admin Dose Admin Acetaminophen/ Hydrocodone Bitart 1 tab Q4HP PRN PO 10/03/24 13:00 UNV Ondansetron HCl 4 mg Q4HP PRN IV 10/03/24 13:00 UNV Docusate Sodium 100 mg BIDPRN PRN PO 10/03/24 13:00 UNV Acetaminophen 650 mg Q6HP PRN PO 10/03/24 13:00 UNV Nitroglycerin 0.4 mg Q5MINP PRN SL 10/03/24 13:00 UNV Morphine Sulfate 2 mg Q30M PRN IV 10/03/24 13:00 UNV Diagnostic Test (Pha) 1 strip ACHS 10/03/24 17:00 UNV Insulin Human Regular HS SC 10/03/24 22:00 UNV Insulin Human Regular AC SC 10/03/24 17:00 UNV Dextrose 50 ml UD PRN IV 10/03/24 13:00 UNV Exam Vital Signs Vital Signs Date Time Temp Pulse Resp B/P (MAP) Pulse Ox O2 Delivery O2 Flow Rate FiO2 10/03/24 12:51 98.2 90 18 150/72 (98) 99 98.2 General Appearance: Alert, Oriented X3, Cooperative, mild distress HEENT: Atraumatic, PERRLA, EOMI, Mucous membr. moist/pink Respiratory: Other (Diminished breath sounds) Cardiovascular: Regular rate, Normal S1, Normal S2, No murmurs Abdominal: Normal bowel sounds, Soft, No tenderness, No hepatospenomegaly Extremities: No clubbing, No cyanosis, Other (bilateral lower extremity edema) Skin: No rashes, No breakdown, No significant lesion Neuro: Normal gait, Strength at 5/5 X4 ext Psych/Mental Status: Mental status NL, Mood NL Labs/Xrays Labs Test 10/03/24 12:34 10/03/24 11:12 Range/Units White Blood Count 6.3 4.4-10.8 10^3/uL Red Blood Count 3.51 L 4.0-5.20 10^6/uL Hemoglobin 11.4 L 12.2-16.2 g/dL Hematocrit 34.6 L 36.0-46.0 % Mean Corpuscular Volume 98.6 80.0-100.0 fL Mean Corpuscular Hemoglobin 32.5 H 28.0-32.0 pg Mean Corpuscular Hemoglobin Concent 32.9 32.0-36.0 g/dL Red Cell Distribution Width 13.7 11.8-14.3 % Platelet Count 143 140-450 10^3/uL Mean Platelet Volume 9.0 6.9-10.8 fL Neutrophils (%) (Auto) 61.2 37.0-80.0 % Lymphocytes (%) (Auto) 28.9 10.0-50.0 % Monocytes (%) (Auto) 9.2 0.0-12.0 % Eosinophils (%) (Auto) 0.6 0.0-7.0 % Basophils (%) (Auto) 0.1 0.0-2.0 % Neutrophils # (Auto) 3.9 1.6-8.6 10 ^3/uL Lymphocytes # (Auto) 1.8 0.4-5.4 10 ^3/uL Monocytes # (Auto) 0.6 0-1.3 10 ^3/uL Eosinophils # (Auto) 0 0-0.8 10 ^3/uL Basophils # (Auto) 0 0-0.2 10 ^3/uL Nucleated Red Blood Cells 0.1 % Sodium Level 140 136-145 mmol/L Potassium Level 3.8 3.5-5.1 mmol/L Chloride Level 102 98-107 mmol/L Carbon Dioxide Level 25 20-31 mmol/L Anion Gap 13 5-15 Blood Urea Nitrogen 20 9-23 mg/dL Creatinine 1.38 H 0.550-1.02 mg/dL Glomerular Filtration Rate Calc 49 >90 mL/min BUN/Creatinine Ratio 14.5 10.0-20.0 Serum Glucose 80 74-106 mg/dL Calcium Level 7.2 L 8.7-10.4 mg/dL B-Type Natriuretic Peptide 53.05 0-100 pg/mL CHEST RADIOGRAPH FINDINGS: The cardiac silhouette is enlarged. The lungs demonstrate bilateral patchy airspace opacities. The pulmonary vasculature is prominent. There is no pleural effusion. There is no pneumothorax. Aortic atherosclerotic disease. IMPRESSION: Cardiomegaly with pulmonary vascular congestion and bilateral patchy airspace opacities. SEPSIS Sepsis Screen Date sepsis recognized/suspect: Oct 03, 2024 Time Sepsis recognized/suspect: 1035 Recent Procedure: No On Antibiotic Therapy: No Respiratory Rate >20: No Heart Rate >90: No Temp<36 C (96.8 F) or >38.3 C: No SBP <90 or MAP <65 mmHG: No New Acute Mental Status Change: No Is the patient on CPAP, BIPAP,: No Physician Orders Chest Portable (10/03/24 10:37) Heplock Iv (10/03/24 10:37) Glue Maker (10/03/24 10:37) Blood Pressure (10/03/24 10:37) Pulse Oximetry (10/03/24 10:37) Urinalysis (10/03/24 10:37) Troponin-I Hs (10/03/24 11:37) Troponin-I Hs (10/03/24 13:37) Electrocardigram (10/03/24 11:37) Electrocardigram (10/03/24 13:37) Admit (10/03/24 12:49) Code Status (10/03/24 12:49) Hydrocodone-Acet 5/325mg Tab ([place] 5/32 (10/03/24 13:00) Ondansetron Hcl (Zofran) (10/03/24 13:00) Docusate Sodium Capsule (Colace Capsule) (10/03/24 13:00) Complete Blood Count (10/04/24 04:00) Comprehensive Metabolic Panel (10/04/24 04:00) Cardiac Diet-2gna,Lofat,Lochol (10/03/24 Lunch) Echo 2d Mode Cardiac Dop (10/03/24 12:49) Condition: Serious (10/03/24 12:49) Acetaminophen Tablet (Tylenol Tablet) (10/03/24 13:00) Nitroglycerin Sublingual (Ntrostat Subli (10/03/24 13:00) Morphine Sulfate Injection (10/03/24 13:00) Stat Ekg For Chest Pain (10/03/24 12:49) Notify Md Of Changes From Base (10/03/24 12:49) Manager Housekeeping For 24 Hours (10/03/24 12:49) Emergency Dysrhythmia Protocol (10/03/24 12:49) Rhythm Strips Once Every Shift (10/03/24 12:49) Oxygen By Nasal Cannula (10/03/24 12:49) Glucose Blood (Accu-Chek Comfort Curve T (10/03/24 17:00) Insulin R (Human) (Insulin R) (10/03/24 22:00) Insulin R (Human) (Insulin R) (10/03/24 17:00) Dextrose 50% Syringe (10/03/24 13:00) * Cardiology Consult (10/03/24 12:49) Famotidine Tablet (Pepcid Tablet) (10/03/24 22:00) Levetiracetam Tablet (Keppra Tablet) (10/03/24 22:00) Levothyroxine Tablet (Synthroid Tablet) (10/04/24 07:00) Senna Pod Tablet (Senokot Tablet) (10/03/24 22:00) Zolpidem Tartrate (Ambien) (10/03/24 13:15) (Nf) Atorvastatin Calcium (10/04/24 10:00) (Nf) Divalproex Sodium (10/03/24 22:00) (Nf) Ferrous Sulfate (Ferosul) (10/04/24 10:00) (Nf) Hydroxyzine Hcl (Hydroxyzine Hydroc (10/03/24 22:00) (Nf) Quetiapine Fumerate (Quetiapine Fum (10/03/24 22:00) (Nf) Sertraline Hcl (10/04/24 10:00) Vital Signs Date Time Temp Pulse Resp B/P (MAP) Pulse Ox O2 Delivery O2 Flow Rate FiO2 10/03/24 12:51 98.2 90 18 150/72 (98) 99 98.2 10/03/24 12:03 92 10/03/24 10:44 93 10/03/24 10:38 93 10/03/24 10:35 98.0 87 18 129/88 98 98.0 Laboratory Tests Test 10/03/24 11:12 White Blood Count 6.3 10^3/uL (4.4-10.8) Assessment/Plan Assessment/Plan Assessment: Possible acute coronary syndrome, Possible CHF exacerbation, Acute on chronic renal injury, Diabetes, Schizophrenia, Hypertension, Hyperlipidemia, Developmentally delayed, Hypothyroidism, Seizures, Plan: Admit to Tele, Cardiology consult, Continuous telemetry monitoring, IV Lasix, Breathing treatments as needed, Home medications reconciled, Plan discussed with: Patient My Orders Orders - JEN CROWELL Procedure Category Date Status Time Admit ADMIT 10/03/24 Transmitted 12:49 Code Status CODE 10/03/24 Transmitted 12:49 Hydrocodone-Acet PHA 10/03/24 Logged 5/325mg Tab ([place] 13:00 Ondansetron Hcl PHA 10/03/24 Logged (Zofran) 13:00 Docusate Sodium PHA 10/03/24 Logged Capsule (Colace 13:00 Complete Blood Count LAB 10/04/24 Verified 04:00 Comprehensive LAB 10/04/24 Verified Metabolic Panel 04:00 Cardiac DIET 10/03/24 Transmitted Diet-2gna,Lofat,Lochol Lunch Echo 2d Mode Cardiac US 10/03/24 Logged DOP 12:49 Condition: Serious NNAMDI 10/03/24 In Process 12:49 Acetaminophen Tablet PHA 10/03/24 Logged (Tylenol Tablet) 13:00 Nitroglycerin PHA 10/03/24 Logged Sublingual (Ntrostat 13:00 Morphine Sulfate PHA 10/03/24 Logged Injection 13:00 Stat Ekg For Chest [facility] 10/03/24 In Process Pain 12:49 Notify Of Changes [facility] 10/03/24 In Process From Base 12:49 Manager Housekeeping For [facility] 10/03/24 In Process 24 Hours 12:49 Emergency Dysrhythmia [facility] 10/03/24 In Process Protocol 12:49 Rhythm Strips Once [facility] 10/03/24 In Process Every Shift 12:49 Oxygen By Nasal RT 10/03/24 Transmitted Cannula 12:49 Glucose Blood PHA 10/03/24 Logged (Accu-Chek Comfort 17:00 Insulin R (Human) PHA 10/03/24 Logged (Insulin R) 22:00 Insulin R (Human) PHA 10/03/24 Logged (Insulin R) 17:00 Dextrose 50% Syringe PHA 10/03/24 Logged 13:00 * Cardiology Consult CONS 10/03/24 Transmitted 12:49 Famotidine Tablet PHA 10/03/24 Verified (Pepcid Tablet) 22:00 Levetiracetam Tablet PHA 10/03/24 Verified (Keppra Tablet) 22:00 Levothyroxine Tablet PHA 10/04/24 Verified (Synthroid Tablet) 07:00 Senna Pod Tablet PHA 10/03/24 Verified (Senokot Tablet) 22:00 Zolpidem Tartrate PHA 10/03/24 Verified (Ambien) 13:15 (Nf) Atorvastatin PHA 10/04/24 Verified Calcium 10:00 (Nf) Divalproex Sodium PHA 10/03/24 Verified 22:00 (Nf) Ferrous Sulfate PHA 10/04/24 Verified (Ferosul) 10:00 (Nf) Hydroxyzine Hcl PHA 10/03/24 Verified (Hydroxyzine Hydroc 22:00 (Nf) Quetiapine PHA 10/03/24 Verified Fumerate (Quetiapine 22:00 (Nf) Sertraline Hcl PHA 10/04/24 Verified 10:00 Date of Service: Oct 03, 2024 Billing Provider: JEN CROWELL Common Visit Codes: [id number] INP/OBS CARE (MOD) JEN CROWELL Oct 03, 2024 13:28
[2024-10-03] MEDS ORDERED: ALBUTEROL SULF 2.5 MG/0.5ML(0.5%) NEB SOLN NEB PRN (13:30)
[2024-10-03] MEDS: FUROSEMIDE 40 MG/4 ML VIAL IV ONE (13:30)
[2024-10-03] MEDS ORDERED: IPRATROPIUM BROM 0.5 MG/2.5ML INH SOL NEB PRN (13:30)
[2024-10-03 14:06] VITALS: BP 150/72; PULSE 90; RESP 18; TEMP 98.2; O2SAT 99
[2024-10-03 14:11] LABS: Urine Protein, UAD Negative (Negative)
[2024-10-03 14:15] VITALS: O2SAT 99
[2024-10-03 16:05] VITALS: PULSE 96; RESP 18; O2SAT 98
--- NOTE | 2024-10-03 16:25 | DVHINCON2 ---
Date Seen: Oct 03, 2024 Referring Physician DYLAN Dunaway Reason for Consultation Rule out ACS History of Present Illness This is a 39-year-old female patient who presents to the emergency room with chief complaint of chest pain. The patient reports that she was at "school" today when symptoms began. She describes the pain as unprovoked, constant, sharp in nature, located at suprasternal notch. She reports that it was nonradiating and denies any associated symptoms. Initial twelve lead electrocardiogram reveals normal sinus rhythm with prolonged QTc interval. Troponin levels have been negative. The patient is developmentally delayed. History obtained from patient and from [employer] hat linux administrator (Elan) of her care facility where she lives . Significant past medical history includes hypertension, epilepsy, developmental delay, schizophrenia, type 2 diabetes mellitus, GERD, thyroid disease, and morbid obesity. Per care service coordinator elderly facility Elan, the patient frequently asks to go to different hospitals in this area. He reports that the patient enjoys hospital visits because she is provided with snacks and juice. Past Medical History Past medical history reviewed. No other significant than mentioned above. Past Surgical History Denies any previous surgeries Family History Family history reviewed. Social History Denies the use of tobacco, alcohol or illicit drugs. Allergies: Coded Allergies: NO KNOWN ALLERGIES (Unverified , 08/23/24) Home Meds Active Scripts Cholecalciferol (VITAMIN D) 5,000 Unit Tab, 5000 UNIT OR DAILY for 30 Days, #30 TAB 0 Refills Prov:ROBERT REIS RESIDENT 08/30/24 Elastic Bandages & Supports (MEDICAL COMPRESSION STOCK) Stocking Mis, UNITS XX, #2 Prov:AGUSTÍN CARMONA MD 08/24/24 Reported Medications Zolpidem Tartrate (Zolpidem Tartrate) 5 Mg Tab, 2 TAB PO HSPRN PRN 10/03/24 Sertraline Hcl (Sertraline Hcl) 25 Mg Tab, 1 TAB PO DAILY 10/03/24 Ferrous Sulfate (Ferosul) 325 Mg Tab, 1 TAB PO DAILY 10/03/24 Divalproex Sodium (Divalproex Sodium) 500 Mg Tab, 1 TAB PO BID 10/03/24 Quetiapine Fumerate (QUETIAPINE FUMARATE) 400 Mg Tab, 1 TAB PO BID 10/03/24 Hydroxyzine HCl (Hydroxyzine Hydrochloride) 50 Mg Tab, 1 TAB PO BID 10/03/24 Famotidine (Famotidine) 20 Mg Tab, 1 TAB PO BID 10/03/24 Docusate Sodium (Docusate Sodium) 250 Mg Cap, 1 PO DAILY 10/03/24 Senna (Senna) 8.6 Mg Tab, 2 TAB PO BID 10/03/24 Atorvastatin Calcium (ATORVASTATIN CALCIUM) 40 Mg Tab, 1 TAB PO DAILY 10/03/24 Furosemide (Furosemide) 40 Mg Tab, 1 TAB PO DAILY 10/03/24 Levothyroxine Sodium (Levothyroxine Sodium) 100 Mcg Tab, 1 TAB PO QAM 10/03/24 Levetiracetam (Levetiracetam) 500 Mg Tab, 1 TAB PO BID 10/03/24 Potassium Bicarbonate-Citric A (Effer-K) 20 Meq Tab, 1 TAB PO DAILY 10/03/24 Discontinued Scripts Sertraline Hcl (Zoloft) 50 Mg Tab, 25 MG PO DAILY for 30 Days, #15 TAB Prov:ROBERT REIS RESIDENT 08/30/24 Potassium Chloride (Klor-Con M10) 10 Meq Tab, 1 TAB PO DAILY for 7 Days, #7 TAB 5 Refills Prov:AGUSTÍN CARMONA MD 08/24/24 Home Meds Home medications reviewed. Current Medications Current Medications Medications (Trade) Dose Ordered Sig/Ailyn Route PRN Reason Start Time Stop Time Status Last Admin Acetaminophen/ Hydrocodone Bitart ([place] 5/325MG Tab) 1 tab Q4HP PRN PO MODERATE PAIN (4-6 PAIN SCALE) 10/03/24 13:00 Ondansetron HCl (Zofran) 4 mg Q4HP PRN IV NAUSEA / VOMITING 10/03/24 13:00 Docusate Sodium (Colace Capsule) 100 mg BIDPRN PRN PO FOR CONSTIPATION 10/03/24 13:00 Acetaminophen (Tylenol Tablet) 650 mg Q6HP PRN PO PAIN SCALE 1-3 OR TEMP>100.4 10/03/24 13:00 Nitroglycerin (Ntrostat Sublingual) 0.4 mg Q5MINP PRN SL FOR CHEST PAIN 10/03/24 13:00 Morphine Sulfate 2 mg Q30M PRN IV FOR CHEST PAIN 10/03/24 13:00 Diagnostic Test (Pha) (Accu-Chek Comfort Curve T) 1 strip ACHS 10/03/24 17:00 Insulin Human Regular (InsuLIN R) HS SC 10/03/24 22:00 Insulin Human Regular (InsuLIN R) AC SC 10/03/24 17:00 Dextrose 50 ml UD PRN IV Blood Sugar LESS THAN 60 10/03/24 13:00 Famotidine (Pepcid Tablet) 20 mg BID PO 10/03/24 22:00 Levetiracetam (Keppra Tablet) 500 mg BID PO 10/03/24 22:00 Levothyroxine Sodium (Synthroid Tablet) 100 mcg QAM PO 10/04/24 07:00 Sennosides (Senokot Tablet) 17.2 mg BID PO 10/03/24 22:00 Zolpidem Tartrate (Ambien) 10 mg HSPRN PRN PO FOR INSOMNIA 10/03/24 13:15 Patient Own Medication 1 tab DAILY PO 10/04/24 10:00 UNV Patient Own Medication 1 tab BID PO 10/03/24 22:00 Patient Own Medication 1 tab DAILY PO 10/04/24 10:00 UNV Patient Own Medication 1 tab BID PO 10/03/24 22:00 UNV Patient Own Medication 1 tab BID PO 10/03/24 22:00 UNV Patient Own Medication 1 tab DAILY PO 10/04/24 10:00 UNV Furosemide (Lasix Injection) 40 mg DAILY IV 10/04/24 10:00 Albuterol (Ventolin Medneb) 2.5 mg Q4HPRN PRN NEB SHORTNESS OF BREATH 10/03/24 13:30 Ipratropium Gordon (Atrovent Medneb) 0.5 mg Q4HPRN PRN NEB SHORTNESS OF BREATH 10/03/24 13:30 Atorvastatin Calcium (Lipitor) 40 mg HS PO 10/03/24 22:00 Ferrous Sulfate 325 mg DAILY PO 10/04/24 10:00 Hydroxyzine Pamoate (Vistaril Oral) 50 mg DAILY PO 10/04/24 10:00 10/03/24 13:49 DC Hydroxyzine Pamoate (Vistaril Oral) 50 mg BID PO 10/03/24 22:00 Quetiapine Fumarate (SEROquel TABLET) 400 mg BID PO 10/03/24 22:00 Sertraline HCl (Zoloft) 25 mg DAILY PO 10/04/24 10:00 Review of Systems Constitutional: No symptom reported Ears, Nose, & Throat: No symptom reported Eyes: No symptom reported Neurological: No symptoms reported Pulmonary/Respiratory: No symptoms reported Cardiovascular: Chest pain Gastrointestinal: No symptom reported Genitourinary: No symptom reported Musculoskeletal: No symptom reported Skin: No symptom reported Psychiatric: No symptom reported Endocrine: No symptom reported Hematologic/Lymphatic: No symptom reported Vital Signs Vital Signs Date Time Temp Pulse Resp B/P (MAP) Pulse Ox O2 Delivery O2 Flow Rate FiO2 10/03/24 14:15 99 Room Air* 0 21 10/03/24 14:06 98.2 90 18 150/72 98.2 Physical Exam General Appearance: Cooperative, morbidly obese Pulmonary/Respiratory: Clear, bilateral breaths sounds. Cardiovascular/Chest: Regular rate and rhythm. Peripheral Pulses: 2+ Radial (R). 2+ Radial (L). 2+ Pedal (R). 2+ Pedal (L) Abdominal Exam: Normal bowel sounds. Ankle Exam: Nonpitting edema Lower extremities: Bilateral lower extremity nonpitting edema Neuro/Mental Status: A/OX3, coherent. Developmentally delayed Thoughts/Psych: Normal thought pattern. Appropriate mood and affect. Good judgment and insight. Appearance: No acute distress. Skin Exam: Normal inspection. Normal color. Warm and dry. Labs/Diagnostic Data Labs Test 10/03/24 12:56 10/03/24 12:34 10/03/24 11:12 Range/Units Urine Color Colorless Yellow Urine Clarity Clear Clear Urine pH 6.0 5.0-9.0 Urine Specific [place] 1.007 1.001-1.035 Urine Protein Negative Negative Urine Ketones Negative Negative Urine Blood Negative Negative /uL Urine Nitrite Negative Negative Urine Bilirubin Negative Negative Urine Urobilinogen Normal Negative mg/dL Urine Leukocyte Esterase Negative Negative /uL Urine RBC None seen 0 - 4 /hpf Urine Microscopic WBC 6 H 0-5 /HPF Urine Squamous Epithelial Cells Few <5 /hpf Urine Bacteria None seen None Seen /hpf Urine Glucose Normal Normal mg/dL Troponin I High Sensitivity < 3 L </=34 ng/L White Blood Count 6.3 4.4-10.8 10^3/uL Red Blood Count 3.51 L 4.0-5.20 10^6/uL Hemoglobin 11.4 L 12.2-16.2 g/dL Hematocrit 34.6 L 36.0-46.0 % Mean Corpuscular Volume 98.6 80.0-100.0 fL Mean Corpuscular Hemoglobin 32.5 H 28.0-32.0 pg Mean Corpuscular Hemoglobin Concent 32.9 32.0-36.0 g/dL Red Cell Distribution Width 13.7 11.8-14.3 % Platelet Count 143 140-450 10^3/uL Mean Platelet Volume 9.0 6.9-10.8 fL Neutrophils (%) (Auto) 61.2 37.0-80.0 % Lymphocytes (%) (Auto) 28.9 10.0-50.0 % Monocytes (%) (Auto) 9.2 0.0-12.0 % Eosinophils (%) (Auto) 0.6 0.0-7.0 % Basophils (%) (Auto) 0.1 0.0-2.0 % Neutrophils # (Auto) 3.9 1.6-8.6 10 ^3/uL Lymphocytes # (Auto) 1.8 0.4-5.4 10 ^3/uL Monocytes # (Auto) 0.6 0-1.3 10 ^3/uL Eosinophils # (Auto) 0 0-0.8 10 ^3/uL Basophils # (Auto) 0 0-0.2 10 ^3/uL Nucleated Red Blood Cells 0.1 % Sodium Level 140 136-145 mmol/L Potassium Level 3.8 3.5-5.1 mmol/L Chloride Level 102 98-107 mmol/L Carbon Dioxide Level 25 20-31 mmol/L Anion Gap 13 5-15 Blood Urea Nitrogen 20 9-23 mg/dL Creatinine 1.38 H 0.550-1.02 mg/dL Glomerular Filtration Rate Calc 49 >90 mL/min BUN/Creatinine Ratio 14.5 10.0-20.0 Serum Glucose 80 74-106 mg/dL Calcium Level 7.2 L 8.7-10.4 mg/dL B-Type Natriuretic Peptide 53.05 0-100 pg/mL Assessment Chest pain, noncardiac Hypertension Epilepsy Developmental delay Schizophrenia Type 2 diabetes mellitus GERD Thyroid disease Acute kidney injury Morbid obesity Plan/Recommendation We will continue with the following plan/recommendations (Dr. Campbell): Case discussed with . A transthoracic echocardiogram from 08/29/2024 reveals an EF of 75% with normal valve function. Given the patient's clinical presentation, negative troponin level, and unremarkable 12 lead electrocardiogram, doubt ACS. Continue with blood pressure control. There is no further inpatient cardiac workup indicated at this time. Thank you for allowing us to care for this patient. Please call with any questions or concerns. Critical care time spent: 44 minutes This medical document was created using an electronic medical record system with voice recognition software and computerized dictation system. Although this document has been carefully reviewed, there might still be some phonetic and typographical errors. Occasional wrong-word or ``sound-alike substitutions may have occurred due to the inherent limitations of voice recognition software. These areas are purely typographical due to imperfections of the software programs and do not reflect any compromise in the patient's medical care. Please read the chart carefully and recognize, using context, where these substitutions have occurred. Plan discussed with: Patient NYHA Physical activity limitations: NA Date of Service: Oct 03, 2024 Billing Provider: KAREN GOULD Cardiology Common Codes: [id number] INP/OBS CARE (High) Cardiology Consultation Codes: [id number] CONSULT <45MIN KAREN GOULD Oct 03, 2024 16:25
[2024-10-03 16:42] VITALS: BP 134/88; PULSE 87; TEMP 98.2; O2SAT 96
[2024-10-03] MEDS: InsuLIN REG 1unit/0.01ml Soln (100units/ml) SC SCH ×2 (17:00→21:32)
[2024-10-03] MEDS: ACCU-CHEK COMFORT CURVE STRIP VI SCH (17:00)
[2024-10-03 19:07] VITALS: O2SAT 96
[2024-10-03 21:00] VITALS: BP 117/68; PULSE 86; RESP 18; TEMP 97.8; O2SAT 97
[2024-10-03] MEDS: levETIRAcetam 500 MG TAB PO SCH (21:30)
[2024-10-03] MEDS: FAMOTIDINE 20 MG TAB PO SCH (21:31)
[2024-10-03] MEDS: ATORVASTATIN 20 MG TAB PO SCH (21:31)
[2024-10-03] MEDS: SENNA 8.6 MG TAB PO SCH (21:31)
[2024-10-03] MEDS: hydrOXYzine 25 MG TAB or CAP PO SCH (21:32)
[2024-10-03] MEDS: DIVALPROEX SODIUM 500 MG PO SCH (21:35)
[2024-10-03] MEDS ORDERED: PATIENTS OWN MEDICATION (Hydroxyzine HCl (Hydroxyzine Hydrochloride) 1 TAB) PO SCH (22:00)
[2024-10-03] MEDS ORDERED: PATIENTS OWN MEDICATION (Quetiapine Fumerate (Quetiapine Fumarate) 1 TAB) PO SCH (22:00)
[2024-10-04 01:00] VITALS: BP 113/72; PULSE 86; RESP 18; TEMP 86; TEMP 97.9; O2SAT 96
[2024-10-04 05:00] VITALS: BP 106/61; PULSE 95; RESP 18; TEMP 98.1; O2SAT 96
[2024-10-04] MEDS: LEVOTHYROXINE SODIUM 100 MCG TAB PO SCH (06:01)
[2024-10-04 06:56] LABS: Hematocrit 31.6 % (36.0-46.0); Hemoglobin 10.9 g/dL (12.2-16.2); Mean Corpuscular Hemoglobin 32.4 pg (28.0-32.0); Mean Corpuscular Volume 93.9 fL (80.0-100.0); Nucleated Red Blood Cells % 0.1 %
[2024-10-04 07:03] LABS: Albumin 4.1 g/dL (3.2-4.8); Alkaline Phosphatase 74 U/L (46-116); Anion Gap 13 (5-15); BUN/Creatinine Ratio 18.2 (10.0-20.0); Carbon Dioxide 25 mmol/L (20-31); Chloride 103 mmol/L (98-107); Glucose 82 mg/dL (74-106); Potassium 3.9 mmol/L (3.5-5.1); Sodium 141 mmol/L (136-145); Total Protein 6.6 g/dL (5.7-8.2)
[2024-10-04 07:04] LABS: Bilirubin, Total 0.3 mg/dL (0.2-1.0)
[2024-10-04 07:06] VITALS: O2SAT 98
[2024-10-04 07:09] LABS: Alanine Aminotransferase < 9 U/L (7-40); Blood Urea Nitrogen 25 mg/dL (9-23); Calcium 7.0 mg/dL (8.7-10.4)
[2024-10-04 08:00] VITALS: PULSE 89
--- NOTE | 2024-10-04 08:18 | DVHPNRES ---
Progress Note Date Seen: Oct 04, 2024 Resident Creating Document: BENI HUNTER RESIDENT Medical Necessity Reason Pt with a Central, PICC or Fol: No Subjective Review of Systems Rosita Rizo is a 39-year-old female with past medical history of hypertension, hyperlipidemia, schizophrenia, diabetes, heart failure, hypothyroidism and seizures, presented to the ER with a complaint of chest pain and shortness of breaths. She is a poor historian. She complains of chest pain, lightheadedness, heartburn that started yesterday. The pain is pressure- like, sharp, continued to worsen since yesterday morning. She reports no aggravating factor. The pain is relieved with drinking water. She also complains of headache for a while? Unsure of onset. She complains of lightheadedness since yesterday that improved with sitting down. She has no associated fever, cough, difficulty breathing. A previous echo done shows LVEF 75%, normal RV, no valve problems. Initial labs show normocytic normochromic anemia, elevated creatinine and calcium, normal troponins. PMHx: Hypertension, hyperlipidemia, schizophrenia, diabetes, heart failure, hypothyroidism and seizures PSHx: Cholecystectomy? Social history: Lives in [facility]. Denies alcohol, smoking, recreational drug use. Reports being sexually active with boyfriend. Home medication: Unsure ROS: Constitutional: Denies weight loss, fever and chills. HEENT: Denies changes in vision and hearing. Respiratory: Shortness of breath and chest pain Cardiovascular: Chest pain GI: Denies abdominal pain, nausea, vomiting and diarrhea. : Complains of foul-smelling vaginal discharge. Denies dysuria and urinary frequency. Musculoskeletal: Denies myalgias and joint pain Skin: Denies rash and pruritus. Neurological: Denies dizziness, headache, vision or hearing problems She was seen at bedside today. Vitals WNL. She complains of acid reflux. She also complained of foul-smelling discharge per vagina. She is stable for discharge today, will continue antibiotics outpatient and follow-up with PCP closely. Objective vital signs Vital Sign Date Time Temp Pulse Resp B/P (MAP) Pulse Ox O2 Delivery O2 Flow Rate FiO2 10/04/24 07:06 98 Room Air 0.0 10/04/24 07:06 21 10/04/24 05:00 98.1 95 18 106/61 (76) 98.1 Total Intake and Output 10/03/24 10/03/24 10/04/24 15:00 23:00 07:00 Intake Total 650 ml 240 ml Balance 650 ml 240 ml medications Current Medications Medications Dose Ordered Sig/Ailyn Route Start Time Stop Time Status Last Admin Dose Admin Acetaminophen/ Hydrocodone Bitart 1 tab Q4HP PRN PO 10/03/24 13:00 Ondansetron HCl 4 mg Q4HP PRN IV 10/03/24 13:00 Docusate Sodium 100 mg BIDPRN PRN PO 10/03/24 13:00 Acetaminophen 650 mg Q6HP PRN PO 10/03/24 13:00 Nitroglycerin 0.4 mg Q5MINP PRN SL 10/03/24 13:00 Morphine Sulfate 2 mg Q30M PRN IV 10/03/24 13:00 Diagnostic Test (Pha) 1 strip ACHS 10/03/24 17:00 10/04/24 06:01 1 STRIP Insulin Human Regular HS SC 10/03/24 22:00 10/03/24 21:32 3 UNITS Insulin Human Regular AC SC 10/03/24 17:00 Dextrose 50 ml UD PRN IV 10/03/24 13:00 Famotidine 20 mg BID PO 10/03/24 22:00 10/03/24 21:31 20 MG Levetiracetam 500 mg BID PO 10/03/24 22:00 10/03/24 21:30 500 MG Levothyroxine Sodium 100 mcg QAM PO 10/04/24 07:00 10/04/24 06:01 100 MCG Sennosides 17.2 mg BID PO 10/03/24 22:00 10/03/24 21:31 17.2 MG Zolpidem Tartrate 10 mg HSPRN PRN PO 10/03/24 13:15 Patient Own Medication 1 tab DAILY PO 10/04/24 10:00 UNV Patient Own Medication 1 tab BID PO 10/03/24 22:00 Patient Own Medication 1 tab DAILY PO 10/04/24 10:00 UNV Patient Own Medication 1 tab BID PO 10/03/24 22:00 UNV Patient Own Medication 1 tab BID PO 10/03/24 22:00 UNV Patient Own Medication 1 tab DAILY PO 10/04/24 10:00 UNV Furosemide 40 mg DAILY IV 10/04/24 10:00 Albuterol 2.5 mg Q4HPRN PRN NEB 10/03/24 13:30 Ipratropium [place] 0.5 mg Q4HPRN PRN NEB 10/03/24 13:30 Atorvastatin Calcium 40 mg HS PO 10/03/24 22:00 10/03/24 21:31 40 MG Ferrous Sulfate 325 mg DAILY PO 10/04/24 10:00 Hydroxyzine Pamoate 50 mg BID PO 10/03/24 22:00 10/03/24 21:32 50 MG Quetiapine Fumarate 400 mg BID PO 10/03/24 22:00 10/03/24 21:31 400 MG Sertraline HCl 25 mg DAILY PO 10/04/24 10:00 Examination General: Patient alert and oriented in person, place and time. Patient following commands. HEENT: Normocephalic, atraumatic, moist mucous membranes Respiratory/pulmonary: Clear lungs bilaterally, no associated crackles or wheezes. Cardiovascular: Normal heart sounds S1 and S2 with no associated murmurs Abdomen: Abdomen nondistended, no palpable masses. Genitourinary: No excessive discharge, foul-smelling. Extremities: There is no peripheral edema present at the lower extremities. Skin: No rashes or pruritus, there is no sacral edema present at this time. Neurological: Intact cranial nerves with no focal neurologic deficits laboratory and microbiology Laboratory Tests 10/04/24 05:43 Test 10/04/24 05:43 Range/Units Serum Glucose 82 74-106 mg/dL Problem List/Assessment/Plan Problem List/Assessment/Plan Acute Chest pain, due to CAD, ruled out CHF exacerbation, possible * Troponins negative * CXR negative for significant findings * EKG shows right axis deviation, QT prolongation * furosemide IV 40 mg started Normocytic normochromic anemia, anemia of chronic disease likely Chronic kidney disease * Elevated creatinine Pelvic inflammatory disease, possible * Chlamydia, gonorrhea tests ordered * IV ceftriaxone single dose administered GERD, possible * Started on Pepcid History of schizophrenia History of seizures History of hypothyroidism * Continue home medications Diabetes mellitus * Started on sliding scale insulin DIET: Cardiac GI PROPHYLAXIS: Pepcid CODE STATUS: Goals of care discussed with patient at bedside for more than 25 minutes. Full code DISPOSITION: Med/surge Patient's status and plan discussed with the patient. Case discussed with Dr. Beltran. Plan discussed with: Patient Date of Service: Oct 04, 2024 Billing Provider: SULEIMAN BELTRAN MD Common Visit Codes: [id number] INP/OBS CARE(HIGH) BENI HUNTER RESIDENT Oct 04, 2024 08:18 SULEIMAN BELTRAN MD Oct 05, 2024 14:00
[2024-10-04] MEDS: FERROUS SULFATE 325mg EC TAB PO SCH (08:37)
[2024-10-04] MEDS: SERTRALINE HCL 50 MG TAB PO SCH (08:38)
[2024-10-04] MEDS: FUROSEMIDE 40 MG/4 ML VIAL IV SCH (08:45)
[2024-10-04] MEDS ORDERED: PATIENTS OWN MEDICATION (Sertraline Hcl 1 TAB) PO SCH (10:00)
[2024-10-04] MEDS ORDERED: hydrOXYzine 25 MG TAB or CAP PO SCH (10:00)
[2024-10-04] MEDS ORDERED: PATIENTS OWN MEDICATION (Atorvastatin Calcium 1 TAB) PO SCH (10:00)
[2024-10-04] MEDS ORDERED: PATIENTS OWN MEDICATION (Ferrous Sulfate (Ferosul) 1 TAB) PO SCH (10:00)
[2024-10-04 10:33] VITALS: BP 109/74; PULSE 86; RESP 18; TEMP 98.1; O2SAT 95
[2024-10-04 13:13] VITALS: BP 116/63; PULSE 86; RESP 17; TEMP 97.5; O2SAT 90
[2024-10-04] MEDS: cefTRIAXone 1GM/50ML D5W 50 ML IV STA (14:48)
[2024-10-04] MEDS ORDERED: DOXY100T2 PO (14:58)
[2024-10-04] MEDS ORDERED: METR-344 PO (15:00)
--- NOTE | 2024-10-04 15:21 | DVHDSRES ---
Discharge Summary Date of Admission Resident Creating Document: BENI HUNTER RESIDENT Oct 03, 2024 at 12:49 Date of Discharge: Oct 04, 2024 Admitting Diagnosis Acute Chest pain due to CHF exacerbation, possible Wounds: No large wounds Labs/Diagnostic Data: Laboratory Results Test 10/04/24 10:52 10/04/24 05:43 10/03/24 12:56 10/03/24 12:34 POC Glucose 95 mg/dl (70-106) White Blood Count 6.8 10^3/uL (4.4-10.8) Red Blood Count 3.36 10^6/uL (4.0-5.20) Hemoglobin 10.9 g/dL (12.2-16.2) Hematocrit 31.6 % (36.0-46.0) Mean Corpuscular Volume 93.9 fL (80.0-100.0) Mean Corpuscular Hemoglobin 32.4 pg (28.0-32.0) Mean Corpuscular Hemoglobin Concent 34.5 g/dL (32.0-36.0) Red Cell Distribution Width 13.2 % (11.8-14.3) Platelet Count 151 10^3/uL (140-450) Mean Platelet Volume 9.9 fL (6.9-10.8) Neutrophils (%) (Auto) 64.1 % (37.0-80.0) Lymphocytes (%) (Auto) 25.1 % (10.0-50.0) Monocytes (%) (Auto) 9.2 % (0.0-12.0) Eosinophils (%) (Auto) 1.3 % (0.0-7.0) Basophils (%) (Auto) 0.3 % (0.0-2.0) Neutrophils # (Auto) 4.4 10 ^3/uL (1.6-8.6) Lymphocytes # (Auto) 1.7 10 ^3/uL (0.4-5.4) Monocytes # (Auto) 0.6 10 ^3/uL (0-1.3) Eosinophils # (Auto) 0.1 10 ^3/uL (0-0.8) Basophils # (Auto) 0 10 ^3/uL (0-0.2) Nucleated Red Blood Cells 0.1 % Sodium Level 141 mmol/L (136-145) Potassium Level 3.9 mmol/L (3.5-5.1) Chloride Level 103 mmol/L (98-107) Carbon Dioxide Level 25 mmol/L (20-31) Anion Gap 13 (5-15) Blood Urea Nitrogen 25 mg/dL (9-23) Creatinine 1.37 mg/dL (0.550-1.02) Glomerular Filtration Rate Calc 50 mL/min (>90) BUN/Creatinine Ratio 18.2 (10.0-20.0) Serum Glucose 82 mg/dL (74-106) Calcium Level 7.0 mg/dL (8.7-10.4) Total Bilirubin 0.3 mg/dL (0.2-1.0) Aspartate Amino Transferase (AST) 14 U/L (13-40) Alanine Aminotransferase (ALT) < 9 U/L (7-40) Alkaline Phosphatase 74 U/L (46-116) Total Protein 6.6 g/dL (5.7-8.2) Albumin 4.1 g/dL (3.2-4.8) Urine Color Colorless (Yellow) Urine Clarity Clear (Clear) Urine pH 6.0 (5.0-9.0) Urine Specific [place] 1.007 (1.001-1.035) Urine Protein Negative (Negative) Urine Ketones Negative (Negative) Urine Blood Negative /uL (Negative) Urine Nitrite Negative (Negative) Urine Bilirubin Negative (Negative) Urine Urobilinogen Normal mg/dL (Negative) Urine Leukocyte Esterase Negative /uL (Negative) Urine RBC None seen /hpf (0 - 4) Urine Microscopic WBC 6 /HPF (0-5) Urine Squamous Epithelial Cells Few /hpf (<5) Urine Bacteria None seen /hpf (None Seen) Urine Glucose Normal mg/dL (Normal) Troponin I High Sensitivity < 3 ng/L (</=34) Test 10/03/24 11:12 B-Type Natriuretic Peptide 53.05 pg/mL (0-100) Other Laboratory Tests 10/04/24 05:43 Brief Hx & Hospital Course: Rosita Rizo is a 39-year-old female with past medical history of hypertension, hyperlipidemia, schizophrenia, diabetes, heart failure, hypothyroidism and seizures, presented to the ER with a complaint of chest pain. She is a poor historian. She complains of chest pain, lightheadedness, heartburn that started yesterday. The pain is pressure-like, sharp, continued to worsen since yesterday morning. She reports no aggravating factor. The pain is relieved with drinking water. She also complains of headache for a while? Unsure of onset. She complains of lightheadedness since yesterday that improved with sitting down. She has no associated fever, cough, difficulty breathing. A previous echo done shows LVEF 75%, normal RV, no valve problems. Initial labs show normocytic normochromic anemia, elevated creatinine and calcium, normal troponins. Her EKG revealed right axis deviation, QT prolongation. initial labs show negative troponins. She was managed with IV furosemide and pain killer. One dose of IV ceftriaxone administered. She is stable for discharge today, will continue antibiotics outpatient and follow-up with PCP closely. Discharge plan: Follow-up with PCP in 1 week. Complete antibiotic course as below: Continue Doxycycline Hyclate 100 Mg Tab twice daily for 14 days Continue Metronidazole (Flagyl) 500 Mg Tab twice daily for 14 days Operations or Procedures CHEST RADIOGRAPH Indication: cp Technique: XY CHEST PORTABLE COMPARISON: None FINDINGS: The cardiac silhouette is enlarged. The lungs demonstrate bilateral patchy airspace opacities. The pulmonary vasculature is prominent. There is no pleural effusion. There is no pneumothorax. Aortic atherosclerotic disease. IMPRESSION: Cardiomegaly with pulmonary vascular congestion and bilateral patchy airspace opacities. Condition at Discharge: Stable Final Diagnosis/Problems List Acute Chest pain, noncardiac likely due to musculoskeletal/costochondritis Ruled out ACS CHF exacerbation, possible Normocytic normochromic anemia, anemia of chronic disease likely Chronic kidney disease Pelvic inflammatory disease, possible GERD, possible History of schizophrenia History of seizures History of hypothyroidism Diabetes mellitus Morbid obesity Discharge Disposition: Home Discharge Instruct/Medications Diet: Cardiac 2g Na,low cholest Activity: No Restrictions, As Tolerated Follow Up/Referral: pcp Medications: as per ehr picker tender new medications Care Plan: Follow-up with PCP in 1 week. Complete antibiotic course as below: Continue Doxycycline Hyclate 100 Mg Tab twice daily for 14 days Continue Metronidazole (Flagyl) 500 Mg Tab twice daily for 14 days Scheduled Atorvastatin Calcium (Atorvastatin Calcium), 1 TAB PO DAILY, (Reported) Cholecalciferol (Vitamin D), 5,000 UNIT OR DAILY Divalproex Sodium (Divalproex Sodium), 1 TAB PO BID, (Reported) Docusate Sodium (Docusate Sodium), 1 PO DAILY, (Reported) Doxycycline Hyclate (Doxycycline Hyclate), 100 MG PO BID Famotidine (Famotidine), 1 TAB PO BID, (Reported) Ferrous Sulfate (Ferosul), 1 TAB PO DAILY, (Reported) Furosemide (Furosemide), 1 TAB PO DAILY, (Reported) Hydroxyzine HCl (Hydroxyzine Hydrochloride), 1 TAB PO BID, (Reported) Levetiracetam (Levetiracetam), 1 TAB PO BID, (Reported) Levothyroxine Sodium (Levothyroxine Sodium), 1 TAB PO QAM, (Reported) Metronidazole (Flagyl), 500 MG PO BID Potassium Bicarbonate-Citric A (Effer-K), 1 TAB PO DAILY, (Reported) Quetiapine Fumerate (Quetiapine Fumarate), 1 TAB PO BID, (Reported) Senna (Senna), 2 TAB PO BID, (Reported) Sertraline Hcl (Sertraline Hcl), 1 TAB PO DAILY, (Reported) Scheduled PRN Zolpidem Tartrate (Zolpidem Tartrate), 2 TAB PO HSPRN PRN, (Reported) Discontinued Medications Potassium Chloride (Klor-Con M10), 1 TAB PO DAILY Sertraline Hcl (Zoloft), 25 MG PO DAILY Durable Medical Equipment Elastic Bandages & Supports (Medical Compression Stock), UNITS XX, (DME) Discharge Statement: "Patient was advised to return to the ER or call 911 if any headaches, dizziness, shortness of breath, chest pain, abdominal pain, bleeding, fevers, or worsening of medical condition. Patient was counseled about treatment plan, medications, possible side effects, patientverbalized understanding. All questions were answered to the best of my ability. This discharge took greater then 30 minutes in planning, reviewing documentation, counseling the patient, and discussing with other team members." ASSESSMENT ASSESSMENT Assessment chest pain acs ruled out, possible sexually transmitted disease/ PID on abx Date of Service: Oct 04, 2024 Billing Provider: SULEIMAN BELTRAN MD Common Visit Codes: [id number]/[id number] DISCH DAY >30min BENI HUNTER RESIDENT Oct 04, 2024 15:21 SULEIMAN BELTRAN MD Oct 05, 2024 14:02
--- NOTE | 2024-10-05 06:30 | ECG ---
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
== END 2024-10-04 16:45 | disposition home or self-care (01) | DRG 203 ==
LOC: ER 10:31 → EDBD 10:31 → OVERFLOW 12:49 → TELE-CENTR 22:27
PROVIDERS: ADMIT Student in an Organized Health Care Education/Training Program; ATTEND Student in an Organized Health Care Education/Training Program
DX: M94.0 Chondrocostal junction syndrome [Tietze] (principal); D63.1 Anemia in chronic kidney disease; E11.22 Type 2 diabetes mellitus with diabetic chronic kidney disease; I13.0 Hypertensive heart and chronic kidney disease with heart failure and stage 1 through stage 4 chronic kidney disease, or unspecified chronic kidney disease; I50.32 Chronic diastolic (congestive) heart failure; F20.9 Schizophrenia, unspecified; E78.5 Hyperlipidemia, unspecified; E03.9 Hypothyroidism, unspecified; G40.909 Epilepsy, unspecified, not intractable, without status epilepticus; K21.9 Gastro-esophageal reflux disease without esophagitis; E66.01 Morbid (severe) obesity due to excess calories; I25.10 Atherosclerotic heart disease of native coronary artery without angina pectoris; N73.9 Female pelvic inflammatory disease, unspecified; N18.9 Chronic kidney disease, unspecified; Z90.49 Acquired absence of other specified parts of digestive tract; Z79.899 Other long term (current) drug therapy; Z68.42 Body mass index [BMI] 45.0-49.9, adult
CPT/HCPCS: 36415; 71045; 80048; 80053; 81001; 82962; 83880; 84484; 85025; 93005; 99291; G0378; J1815

== ENCOUNTER 2024-10-20 02:02 | Inpatient (IN) | payer MEDICAID ==
[~2024-10-20] VITALS: Ht 160 cm; Wt 96.0 kg
[2024-10-20] VITALS (8 sets, daily range): BP systolic 109–118; BP diastolic 65–78; PULSE 68–101; RESP 18–19; TEMP 97.9–98.2; O2SAT 96–99
[~2024-10-20 02:02] MED LIST changes: +ATOR40TA52 PO; +DIVA500T13 PO; +DOCU250C12 PO; +DOXY100T2 PO; +FAMO-12 PO; +FERR325T20 PO; +FURO40TA4 PO; +HYDR50TA32 PO; +LEVE500T3 PO; +LEVO100T8 PO; +METR-344 PO; -POTA-215 PO; +POTA20TA24 PO; +QUET400T13 PO; +SENN-105 PO; +SERT25TA28 PO; -SERT50TA PO; +ZOLP5TAB5 PO
--- NOTE | 2024-10-20 02:26 | ED.PDOC ---
Psychiatric HPI Comments 39-year-old female who came to ER via EMS for chest pains. Patient picked up at an assisted care facility, history of anxiety, schizophrenia and bipolar disorder. States she has been unable to sleep for the past 4 days, and few hours ago she started having panic attacks, accompanied by substernal chest pressure 9/10 intensity. Patient was given medications at the facility, and she states she feels slightly better now. REVIEW OF SYSTEMS: No fever, no chills, or fatigue HEENT: No sore throat, no earache, no congestion, no neck pain. Cardiac: + chest pain. No palpitations. Lungs: No shortness of breath, no cough. GI: No nausea, no vomiting, no diarrhea, no constipation, no abdominal pain : No dysuria, frequency, or urgency. No hematuria. Musculoskeletal: No joint pain , no joint swelling, no extremity edema. Skin: No rash, no itching. Neuro: No headache, no dizziness, no weakness Psyche: (+) anxiety, schizophrenia, bipolar, sleepless Physical exam General: Awake, alert and oriented. No acute distress. Skin: Skin in warm, dry and intact. Appropriate color for ethnicity. Nailbeds pink with no cyanosis. HEENT: The head is normocephalic and atraumatic. Conjunctivae are clear without exudates or hemorrhage. Sclera is non-icteric. EOM are intact. No signs of nystagmus. Eyelids are normal in appearance without swelling or lesions. Oral mucosa is pink and moist Neck: The neck is supple with normal range of motion. No JVD. Cardiac: Heart rate and rhythm are normal. No murmurs, gallops, or rubs are auscultated. Respiratory: No signs of respiratory distress. Lung sounds are clear in all lobes bilaterally without rales, rhonchi, or wheezes. Abdominal: Abdomen is soft, non-tender without distention. Bowel sounds are present and normoactive in all four quadrants. Extremities: Upper and lower extremities are atraumatic in appearance without deformity or edema. Neurological: The patient is awake, alert and oriented to person, place, and time with normal speech. Speech is clear. There is no facial asymmetry. Psychiatric: Appropriate mood and affect. Good judgement and insight. No visual or auditory hallucinations. 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 Was a procedure done?: No Psych Differential Dx Psych. Differential Dx: Anxiety, Bipolar Disorder, Panic Disorder, Schizoprenia, Sleepless, Other (Musculoskeletal pain) X-Ray, Labs, Meds, VS Vital Signs Date Time Temp Pulse Resp B/P (MAP) Pulse Ox O2 Delivery O2 Flow Rate FiO2 10/20/24 05:08 95 18 144/85 (104) 98 10/20/24 05:08 95 18 98 Room Air* 0 21 10/20/24 02:26 97 10/20/24 02:20 98.2 92 18 130/76 (94) 96 98.2 10/20/24 02:07 97 10/20/24 02:02 98.5 97 16 130/68 96 98.5 Lab Test 10/20/24 03:27 10/20/24 02:25 Range/Units Troponin I High Sensitivity 8 10 </=34 ng/L Thyroid Stimulating Hormone (TSH) Pending White Blood Count 6.6 4.4-10.8 10^3/uL Red Blood Count 3.18 L 4.0-5.20 10^6/uL Hemoglobin 10.2 L 12.2-16.2 g/dL Hematocrit 30.0 L 36.0-46.0 % Mean Corpuscular Volume 94.5 80.0-100.0 fL Mean Corpuscular Hemoglobin 32.0 28.0-32.0 pg Mean Corpuscular Hemoglobin Concent 33.8 32.0-36.0 g/dL Red Cell Distribution Width 13.5 11.8-14.3 % Platelet Count 132 L 140-450 10^3/uL Mean Platelet Volume 9.4 6.9-10.8 fL Neutrophils (%) (Auto) 58.1 37.0-80.0 % Lymphocytes (%) (Auto) 30.7 10.0-50.0 % Monocytes (%) (Auto) 9.8 0.0-12.0 % Eosinophils (%) (Auto) 1.0 0.0-7.0 % Basophils (%) (Auto) 0.4 0.0-2.0 % Neutrophils # (Auto) 3.8 1.6-8.6 10 ^3/uL Lymphocytes # (Auto) 2.0 0.4-5.4 10 ^3/uL Monocytes # (Auto) 0.6 0-1.3 10 ^3/uL Eosinophils # (Auto) 0.1 0-0.8 10 ^3/uL Basophils # (Auto) 0 0-0.2 10 ^3/uL Nucleated Red Blood Cells 0.0 % Sodium Level 142 136-145 mmol/L Potassium Level 3.6 3.5-5.1 mmol/L Chloride Level 105 98-107 mmol/L Carbon Dioxide Level 24 20-31 mmol/L Anion Gap 13 5-15 Blood Urea Nitrogen 18 9-23 mg/dL Creatinine 1.36 H 0.550-1.02 mg/dL Glomerular Filtration Rate Calc 50 >90 mL/min BUN/Creatinine Ratio 13.2 10.0-20.0 Serum Glucose 89 74-106 mg/dL Calcium Level 5.7 *L 8.7-10.4 mg/dL B-Type Natriuretic Peptide 27.42 0-100 pg/mL Time of 1ST Reevaluation: 02:22 Reevaluation 1ST: Unchanged Patient Education/Counseling: Need For Follow Up Family Education/Counseling: No Family Present Departure 1 Departure Time of Disposition: 04:16 Impression: Primary Impression: Hypocalcemia Additional Impressions: LEORA (acute kidney injury) Chest pain Prolonged QT interval Disposition: ADMITTED INPATIENT Condition: Stable Comments Patient admitted to hospitalist service for further treatment, evaluation and monitoring. Critical Care Note Critical Care Time?: No Stability Stability form required: No Heart Score Heart Score: Heart Score Response (Comments) Value History Slightly Suspicious 0 EKG Normal 0 Age <45 0 Risk Factors No known risk factors 0 Troponin Normal limit 0 Total 0 I personally scribed for AGUSTÍN CARMONA MD ([email or web address]) on 10/20/24 at 02:26. Electronically submitted by Brennon Salinas ([email or web address]). AGUSTÍN CARMONA MD Oct 20, 2024 02:26
[2024-10-20 03:01] LABS: Hematocrit 30.0 % (36.0-46.0); Hemoglobin 10.2 g/dL (12.2-16.2); Mean Corpuscular Hemoglobin 32.0 pg (28.0-32.0); Mean Corpuscular Volume 94.5 fL (80.0-100.0); Nucleated Red Blood Cells % 0.0 %
[2024-10-20 03:56] LABS: Chloride 105 mmol/L (98-107); Potassium 3.6 mmol/L (3.5-5.1); Sodium 142 mmol/L (136-145)
[2024-10-20 03:57] LABS: Anion Gap 13 (5-15); Carbon Dioxide 24 mmol/L (20-31)
[2024-10-20 04:02] LABS: BUN/Creatinine Ratio 13.2 (10.0-20.0); Blood Urea Nitrogen 18 mg/dL (9-23); Glucose 89 mg/dL (74-106)
--- NOTE | 2024-10-20 04:07 | DVH ---
CHEST RADIOGRAPH Indication: cp Technique: Single frontal view of the chest was obtained COMPARISON: XY CHEST PORTABLE on DOS: 10/03/24, XY CHEST PORTABLE on DOS: 08/28/24, XY CHEST TWO VIEWS ROUTINE on DOS: 08/23/24 FINDINGS: Lines and Tubes: None Lungs: Clear Pleura: No effusion. No pneumothorax. Cardiomediastinal contours: Cardiomegaly. Bones: Unremarkable IMPRESSION: 1. Cardiomegaly.
[2024-10-20 04:11] LABS: Calcium 5.7 mg/dL (8.7-10.4)
[2024-10-20] MEDS: SODIUM CHLORIDE 0.9% 1,000 ML IV ONE (04:30)
[2024-10-20] MEDS ORDERED: ACETAMINOPHEN 325 MG TAB PO PRN (05:00)
[2024-10-20] MEDS ORDERED: ONDANSETRON HCL 4 MG/2 ML VIAL IV PRN (05:00)
[2024-10-20] MEDS ORDERED: DOCUSATE SOD 100 MG CAP PO PRN (05:00)
--- NOTE | 2024-10-20 05:28 | DVHHP2 ---
History of Present Illness Reason for Visit: Chest pain History of Present Illness The patient is a 39-year-old female with multiple past medical history including CKF, CHF, hyperlipidemia, hypertension, bipolar disorder, schizophrenia, and seizures who presented to [facility] ED with complaint of chest pain . Patient reports she has been experiencing substernal chest pain, rating 9/10 numeric scale, unable to stay for the past 4 days, having panic attacks, getting worse that prompted this visit. Patient was seen and evaluated in the ED, laboratory data shows WBC 6.6, hemoglobin 10.2, hematocrit 30.0, platelets 132, sodium 142, potassium 3.6, BUN 18, creatinine 1.36, GFR 50, glucose 89, calcium 5.7, troponin 10, BNP 27.42, blood pressure 130/76, heart rate 92, temperature 98.2 F, O2 saturation 96% on room air. Chest x-ray revealing cardiomegaly. Please see medication orders section in the computer. On my assessment, patient denied chest pain, no headache, no dizziness, no diaphoresis, no shortness of breaths, no nausea, no vomiting, no fever, no chills. Patient was admitted for further evaluation and medical management. Past Medical History Anxiety, CHF, CKF, High Lipids, HTN, Schizophrenia, Seizures, Thyroid, Bipolar disorder Past Surgical History Denies all surgeries Family History Reviewed, noncontributory to the management of this case. Past Social History The patient lives at home, denies smoking, alcohol or illicit drugs abuse. Review of Systems Constitutional: No: Fever, Chills, Sweats, Weakness, Malaise, Other Eyes: No: Pain, Vision change, Conjunctivae inflammation, Eyelid inflammation, Other, Redness ENT: No: Ear pain, Ear discharge, Nose pain, Nose discharge, Nose congestion, Mouth pain, Mouth swelling, Throat pain, Throat swelling, Other Respiratory: No: Cough, Dry, Shortness of breath, SOB with excertion, Wheezing, Hemoptysis, Pleuritic Pain, Sputum, Wheezing, Other Cardiovascular: Chest Pain; No: Palpitations, Orthopnea, Paroxysmal Noc. Dyspnea, Edema, Lt Headedness, Other Gastrointestinal: No: Nausea, Vomiting, Abdominal Pain, Diarrhea, Constipation, Melena, Hematochezia, Other Musculoskeletal: No: other, neck pain, shoulder pain, arm pain, back pain, hand pain, leg pain, foot pain Skin: No: Rash, Lesions, Jaundice, Bruising, Other Neurological: No: Weakness, Numbness, Incoordination, Change in speech, Confusion, Seizures, Other Allergies: Coded Allergies: NO KNOWN ALLERGIES (Unverified , 08/23/24) Medications Current Medications Medications Dose Ordered Sig/Ailyn Route Start Time Stop Time Status Last Admin Dose Admin Atorvastatin Calcium 20 mg HS PO 10/20/24 22:00 Levothyroxine Sodium 100 mcg QAM@0600 PO 10/20/24 06:00 Levetiracetam 100 ml @ 400 mls/hr BID IV 10/20/24 10:00 Sertraline HCl 25 mg DAILY PO 10/20/24 10:00 Quetiapine Fumarate 300 mg BID PO 10/20/24 10:00 Divalproex Sodium 500 mg BID PO 10/20/24 10:00 Sodium Chloride 10 ml Q8HR IV 10/20/24 06:00 Acetaminophen/ Hydrocodone Bitart 1 tab Q4HP PRN PO 10/20/24 05:00 Ondansetron HCl 4 mg Q4HP PRN IV 10/20/24 05:00 Docusate Sodium 100 mg BIDPRN PRN PO 10/20/24 05:00 Acetaminophen 650 mg Q6HP PRN PO 10/20/24 05:00 Exam Vital Signs Vital Signs Date Time Temp Pulse Resp B/P (MAP) Pulse Ox O2 Delivery O2 Flow Rate FiO2 10/20/24 05:08 95 18 144/85 (104) 98 10/20/24 05:08 Room Air* 0 21 10/20/24 02:20 98.2 98.2 General Appearance: Alert, Oriented X3, Cooperative, No acute distress HEENT: Atraumatic, PERRLA, EOMI, Mucous membr. moist/pink Respiratory: Clear to auscultation, Normal air movement Cardiovascular: Regular rate, Normal S1, Normal S2, No murmurs Abdominal: Normal bowel sounds, Soft, No tenderness, No hepatospenomegaly, No masses Extremities: No clubbing, No cyanosis, No edema, Normal pulses, No tenderness/swelling Skin: No rashes, No breakdown, No significant lesion Neuro: Normal gait, Normal speech, Strength at 5/5 X4 ext, Normal tone, Sensation intact, Cranial nerves 3-12 NL, Reflexes 2+ Psych/Mental Status: Mental status NL, Mood NL Labs/Xrays Labs Test 10/20/24 03:27 10/20/24 02:25 Range/Units Troponin I High Sensitivity 8 </=34 ng/L White Blood Count 6.6 4.4-10.8 10^3/uL Red Blood Count 3.18 L 4.0-5.20 10^6/uL Hemoglobin 10.2 L 12.2-16.2 g/dL Hematocrit 30.0 L 36.0-46.0 % Mean Corpuscular Volume 94.5 80.0-100.0 fL Mean Corpuscular Hemoglobin 32.0 28.0-32.0 pg Mean Corpuscular Hemoglobin Concent 33.8 32.0-36.0 g/dL Red Cell Distribution Width 13.5 11.8-14.3 % Platelet Count 132 L 140-450 10^3/uL Mean Platelet Volume 9.4 6.9-10.8 fL Neutrophils (%) (Auto) 58.1 37.0-80.0 % Lymphocytes (%) (Auto) 30.7 10.0-50.0 % Monocytes (%) (Auto) 9.8 0.0-12.0 % Eosinophils (%) (Auto) 1.0 0.0-7.0 % Basophils (%) (Auto) 0.4 0.0-2.0 % Neutrophils # (Auto) 3.8 1.6-8.6 10 ^3/uL Lymphocytes # (Auto) 2.0 0.4-5.4 10 ^3/uL Monocytes # (Auto) 0.6 0-1.3 10 ^3/uL Eosinophils # (Auto) 0.1 0-0.8 10 ^3/uL Basophils # (Auto) 0 0-0.2 10 ^3/uL Nucleated Red Blood Cells 0.0 % Sodium Level 142 136-145 mmol/L Potassium Level 3.6 3.5-5.1 mmol/L Chloride Level 105 98-107 mmol/L Carbon Dioxide Level 24 20-31 mmol/L Anion Gap 13 5-15 Blood Urea Nitrogen 18 9-23 mg/dL Creatinine 1.36 H 0.550-1.02 mg/dL Glomerular Filtration Rate Calc 50 >90 mL/min BUN/Creatinine Ratio 13.2 10.0-20.0 Serum Glucose 89 74-106 mg/dL Calcium Level 5.7 *L 8.7-10.4 mg/dL B-Type Natriuretic Peptide 27.42 0-100 pg/mL PATIENT: CHAD CONKLIN ACCT: [id number] UNIT: [id number] : 1985 LOC: ER ROOM / BED: / AGE / SEX: 39 / F ADM STATUS: REG ER SERVICE 0219 ORDERING PHYSICIAN: AGUSTÍN CARMONA MD PROCEDURE(s): CXR1 - CHEST XRAY 1 VIEW REASON: cp ORDER NUMBER(s): [id number], ACCESSION NUMBER(s): [id number] CHEST RADIOGRAPH Indication: cp Technique: Single frontal view of the chest was obtained COMPARISON: XY CHEST PORTABLE on DOS: 10/03/24, XY CHEST PORTABLE on DOS: 08/28/24, XY CHEST TWO VIEWS ROUTINE on DOS: 08/23/24 FINDINGS: Lines and Tubes: None Lungs: Clear Pleura: No effusion. No pneumothorax. Cardiomediastinal contours: Cardiomegaly. Bones: Unremarkable IMPRESSION: 1. Cardiomegaly. SEPSIS Sepsis Screen Date sepsis recognized/suspect: Oct 20, 2024 Time Sepsis recognized/suspect: 0202 Recent Procedure: No On Antibiotic Therapy: No Respiratory Rate >20: No Heart Rate >90: No Temp<36 C (96.8 F) or >38.3 C: No SBP <90 or MAP <65 mmHG: No New Acute Mental Status Change: No Is the patient on CPAP, BIPAP,: No Physician Orders Electrocardigram (10/20/24 02:11) Chest Xray 1 View (10/20/24 02:19) Vital Signs Q1HR (10/20/24 02:19) Troponin-I Hs (10/20/24 05:19) Cloth Desizing Range Operator Chief (10/20/24 ) Sodium Chloride 0.9% (10/20/24 04:30) Complete Blood Count (10/20/24 04:56) Comprehensive Metabolic Panel (10/20/24 04:56) Thyroid Stimulating Hormone (10/20/24 04:56) Atorvastatin (Lipitor) (10/20/24 22:00) Levothyroxine Tablet (Synthroid Tablet) (10/20/24 06:00) Levetiracetam 500 Mg/100ml (Levetiraceta (10/20/24 10:00) Sertraline Hcl (Zoloft) (10/20/24 10:00) Quetiapine Fumarate Tablet (Seroquel Tab (10/20/24 10:00) Divalproex Dr Tablet (Depakote "Dr" Tabl (10/20/24 10:00) Allergies (10/20/24 04:56) Code Status (10/20/24 04:56) Sodium Chloride Lock (Saline Lock Ns) (10/20/24 06:00) Oxygen Per Hour (10/20/24 04:56) Hydrocodone-Acet 5/325mg Tab (Burlison 5/32 (10/20/24 05:00) Ondansetron Hcl (Zofran) (10/20/24 05:00) Docusate Sodium Capsule (Colace Capsule) (10/20/24 05:00) Complete Blood Count (10/21/24 04:00) Comprehensive Metabolic Panel (10/21/24 04:00) Cardiac Diet-2gna,Lofat,Lochol (10/20/24 Breakfast) Condition: Serious (10/20/24 04:56) Acetaminophen Tablet (Tylenol Tablet) (10/20/24 05:00) Bedrest With Bathroom Privileg (10/20/24 04:56) Sequential Compression Device (10/20/24 ) Admit (10/20/24 05:27) Nitroglycerin Sublingual (Ntrostat Subli (10/20/24 05:30) Morphine Sulfate Injection (10/20/24 05:30) Stat Ekg For Chest Pain (10/20/24 05:27) Notify Md Of Changes From Base (10/20/24 05:27) Sports Information Director For 24 Hours (10/20/24 05:27) Emergency Dysrhythmia Protocol (10/20/24 05:27) Rhythm Strips Once Every Shift (10/20/24 05:27) Oxygen By Nasal Cannula (10/20/24 05:27) Vital Signs Date Time Temp Pulse Resp B/P (MAP) Pulse Ox O2 Delivery O2 Flow Rate FiO2 10/20/24 05:08 95 18 144/85 (104) 98 10/20/24 05:08 95 18 98 Room Air* 0 21 10/20/24 02:26 97 10/20/24 02:20 98.2 92 18 130/76 (94) 96 98.2 10/20/24 02:07 97 10/20/24 02:02 98.5 97 16 130/68 96 98.5 Laboratory Tests Test 10/20/24 02:25 White Blood Count 6.6 10^3/uL (4.4-10.8) Assessment/Plan Assessment/Plan Chest pain Hypocalcemia Acute renal injury Prolonged QT interval Plan 1. Admit to telemetry unit 2. Breathing treatment 3. Pain control management 4. Management of fluids and electrolytes 5. Consultation for hospitalist 6. Diagnostic tests chest x-ray 7. DVT prophylaxis-on aspirin 8. Repeat labs CBC, CMP in a.m. 9. Continue with current medical management 10. Treatment plan discussed with patient and RN. Patient verbalized understanding. Plan discussed with: Patient, Other (RN) My Orders Orders - HOLLY LESTER DNP Procedure Category Date Status Time Complete Blood Count LAB 10/20/24 Logged 04:56 Comprehensive LAB 10/20/24 Logged Metabolic Panel 04:56 Thyroid Stimulating LAB 10/20/24 Logged Hormone 04:56 Atorvastatin (Lipitor) PHA 10/20/24 In Process 22:00 Levothyroxine Tablet PHA 10/20/24 In Process (Synthroid Tablet) 06:00 Levetiracetam 500 PHA 10/20/24 In Process Mg/100ml (Levetiraceta 10:00 Sertraline Hcl PHA 10/20/24 In Process (Zoloft) 10:00 Quetiapine Fumarate PHA 10/20/24 In Process Tablet (Seroquel Tab 10:[address] Tablet PHA 10/20/24 In Process (Depakote "Dr" Tabl 10:00 Allergies NNAMDI 10/20/24 In Process 04:56 Code Status CODE 10/20/24 Transmitted 04:56 Sodium Chloride Lock PHA 10/20/24 In Process (Saline Lock Ns) 06:00 Oxygen Per Hour RT 10/20/24 Transmitted 04:56 Hydrocodone-Acet PHA 10/20/24 In Process 5/325mg Tab (Burlison 05:00 Ondansetron Hcl PHA 10/20/24 In Process (Zofran) 05:00 Docusate Sodium PHA 10/20/24 In Process Capsule (Colace 05:00 Complete Blood Count LAB 10/21/24 Verified 04:00 Comprehensive LAB 10/21/24 Verified Metabolic Panel 04:00 Cardiac DIET 10/20/24 Transmitted Diet-2gna,Lofat,Lochol Breakfast Condition: Serious [facility] 10/20/24 In Process 04:56 Acetaminophen Tablet [facility] 10/20/24 In Process (Tylenol Tablet) 05:00 Bedrest With Bathroom [facility] 10/20/24 In Process Privileg 04:56 Sequential [facility] 10/20/24 In Process Compression Device Admit ADMIT 10/20/24 Verified 05:27 Nitroglycerin [facility] 10/20/24 Verified Sublingual (Ntrostat 05:30 Morphine Sulfate [facility] 10/20/24 Verified Injection 05:30 Stat Ekg For Chest [facility] 10/20/24 Verified Pain 05:27 Notify Md Of Changes [facility] 10/20/24 Verified From Base 05:27 Sports Information Director For [facility] 10/20/24 Verified 24 Hours 05:27 Emergency Dysrhythmia [facility] 10/20/24 Verified Protocol 05:27 Rhythm Strips Once [facility] 10/20/24 Verified Every Shift 05:27 Oxygen By Nasal 10/20/24 Verified Cannula 05:27 Problem List: (1) Chest pain (2) Hypocalcemia (3) Acute renal injury (4) Prolonged QT interval Date of Service: Oct 20, 2024 Billing Provider: HOLLY LESTER DNP Common Visit Codes: [id number] INP/OBS CARE (HIGH) HOLLY LESTER DNP Oct 20, 2024 05:28
[2024-10-20] MEDS ORDERED: NITROGLYCERIN 0.4 MG SL TAB SL PRN (05:30)
[2024-10-20] MEDS ORDERED: MORPHINE SULFATE INJ 2 MG/ml SYRG IV PRN (05:30)
[2024-10-20] MEDS: SODIUM CHLOR 0.9% PF (SALINE LOCK) 10ML VIAL/SYR IV SCH (06:00)
[2024-10-20] MEDS: LEVOTHYROXINE SODIUM 100 MCG TAB PO SCH (06:33)
[2024-10-20] MEDS: CALCIUM GLUC 1,000mg/50ml-NS 50 ML IV ONE (11:51)
[2024-10-20] MEDS: levETIRAcetam 500 mg/100ml 100 ML IV SCH (11:55)
[2024-10-20] MEDS: SERTRALINE HCL 50 MG TAB PO SCH (11:55)
[2024-10-20] MEDS: MAALOX PLUS or MAALOX 30 ML PO ONE (14:16)
[2024-10-20] MEDS: FAMOTIDINE 20 MG TAB PO ONE (14:17)
[2024-10-20] MEDS: MAGNESIUM SULFATE 1GM/100ML 100 ML IV SCH (14:17)
--- NOTE | 2024-10-20 14:27 | DVH ---
Bilateral lower extremity venous duplex Clinical History: pain; Rule out DVT Comparison: None Technique: Duplex Doppler evaluation of the deep venous systems of both lower extremities from the common femora l veins to the popliteal veins including color Doppler and spectral/pulsed waveform analysis was perf ormed. Findings: RIGHT SIDE: The common femoral vein demonstrates appropriate compressibility and waveform variability. There is compressibility/patency of the great saphenous vein at the proximal thigh. The femoral vein demonstrates appropriate compressibility and waveform variability. The deep femoral vein demonstrates appropriate compressibility and waveform variability. The popliteal vein demonstrates appropriate compressibility and waveform variability. There is normal compressibility at the tibioperoneal trunk. LEFT SIDE: The common femoral vein demonstrates appropriate compressibility and waveform variability. There is compressibility/patency of the great saphenous vein at the proximal thigh. The femoral vein demonstrates appropriate compressibility and waveform variability. The deep femoral vein demonstrates appropriate compressibility and waveform variability. The popliteal vein demonstrates appropriate compressibility and waveform variability. There is normal compressibility at the tibioperoneal trunk. Impression: No right or left femoropopliteal venous thrombosis.
[2024-10-20 14:41] LABS: Albumin 4.1 g/dL (3.2-4.8); Alkaline Phosphatase 91 U/L (46-116); Anion Gap 11 (5-15); BUN/Creatinine Ratio 15.3 (10.0-20.0); Blood Urea Nitrogen 18 mg/dL (9-23); Carbon Dioxide 27 mmol/L (20-31); Chloride 105 mmol/L (98-107); Glucose 79 mg/dL (74-106); Magnesium 1.6 mg/dL (1.6-2.6); Potassium 3.8 mmol/L (3.5-5.1); Sodium 143 mmol/L (136-145); Total Protein 6.6 g/dL (5.7-8.2)
[2024-10-20 14:42] LABS: Alanine Aminotransferase < 9 U/L (7-40); Bilirubin, Total 0.3 mg/dL (0.2-1.0)
[2024-10-20 14:43] LABS: Calcium 6.0 mg/dL (8.7-10.4)
[2024-10-20 15:19] LABS: Barbiturate Scree,Urine Neg (NEGATIVE); Benzodiazephine Screen, Urine Neg (NEGATIVE)
[2024-10-20 15:22] LABS: Amphetamine Screen, Urine Neg (NEGATIVE); Cannabinoid Screen, Urine Neg (NEGATIVE); Opiate Scree,Urine Neg (NEGATIVE); Phencyclidine Screen, Urine Neg (NEGATIVE)
[2024-10-20 15:39] LABS: COVID19 ANTIGEN SOFIA FIA NEGATIVE (NEGATIVE)
[2024-10-20] MEDS: CALCIUM GLUC 1,000mg/50ml-NS 50 ML IV SCH (15:54)
[2024-10-20 16:12] LABS: Cocaine Screen, Urine Neg (NEGATIVE)
--- NOTE | 2024-10-20 19:03 | DVHPNRES ---
Progress Note Date Seen: Oct 20, 2024 Resident Creating Document: TETE PEDRO RESIDENT Has the PT tested + for MRSA If YES, has PT been informed?: No Medical Necessity Reason Pt with a Central, PICC or Fol: No Subjective Review of Systems 39-year-old female with past medical history of stage 2 chronic kidney failure, chronic HFwPEF, hyperlipidemia, essential hypertension, bipolar disorder and seizure disorder presented to the ED with complaints of chest pain she describes the chest pain as substernal rated it as 9/10, started from yesterday, no radiation, aggravated with exercise and relieved with rest. The patient has no chest pain now.. Chest x-ray reveals the patient is unaware about her family history. She sees she take medicines but does not know which ones. The patient says he has had anxiety about not seeing her mother. PMHx:stage 2 chronic kidney failure, chronic HFwPEF, hyperlipidemia, essential hypertension, bipolar disorder and seizure disorder Family history: Patient unaware Social history: Denies smoking alcohol or illicit drugs Home medication: Patient does not remember Allergic history: Does not remember General: patient denies fever, fatigue, weaknes, sweating, any recent changes in appetite and weight HEENT: No headaches, visiual changes, hearing loss, tinnitus, nasal congestion and discharge, and sore throat. Cardiovascular: Denies chest pain, palpitations, dyspnea on exertion, orthopnea, or claudication. Respiratory: No cough, and wheezing. Gastrointestinal: Denies nausea, vomiting, dysphagia, odynophagia, heartburn, abdominal pain, flatulence, bloating, diarrhea, constipation, change in stool, or blood in stool. Genitourinary: No dysuria, hematuria, discharge, frequency, urgency, nocturia, incontinence, and urinary retention. Endocrine: No heat or cold intolerance, polydipsia, polyuria, and polyphagia. Neurological: No dizziness, extremity weakness and numbness, tremors, gait disturbance, seizures, and memory impairment. Psychiatric: Denies depression, anxiety,or insomnia. Musculoskeletal: Denies neck pain, stiffness and swelling, back pain, muscle weakness, joint pain, stiffness, swelling, or limited range of motion. Skin: No rashes, itching, skin lesion, changes in hair, nail, skin texture and breast. Hematologic/Lymphatic: Denies easy bruising, bleeding tendencies, or lymph node enlargement. Objective vital signs Vital Sign Date Time Temp Pulse Resp B/P (MAP) Pulse Ox O2 Delivery O2 Flow Rate FiO2 10/20/24 16:58 98.2 94 18 109/75 (86) 98 98.2 10/20/24 12:55 Room Air* 0 21 medications Current Medications Medications Dose Ordered Sig/Ailyn Route Start Time Stop Time Status Last Admin Dose Admin Atorvastatin Calcium 20 mg HS PO 10/20/24 22:00 Levothyroxine Sodium 100 mcg QAM@0600 PO 10/20/24 06:00 10/20/24 06:33 100 MCG Levetiracetam 100 ml @ 400 mls/hr BID IV 10/20/24 10:00 10/20/24 11:55 400 MLS/HR Quetiapine Fumarate 300 mg BID PO 10/20/24 10:00 10/20/24 11:53 300 MG Divalproex Sodium 500 mg BID PO 10/20/24 10:00 10/20/24 06:32 500 MG Sodium Chloride 10 ml Q8HR IV 10/20/24 06:00 10/20/24 14:17 10 ML Acetaminophen/ Hydrocodone Bitart 1 tab Q4HP PRN PO 10/20/24 05:00 Ondansetron HCl 4 mg Q4HP PRN IV 10/20/24 05:00 Docusate Sodium 100 mg BIDPRN PRN PO 10/20/24 05:00 Acetaminophen 650 mg Q6HP PRN PO 10/20/24 05:00 Nitroglycerin 0.4 mg Q5MINP PRN SL 10/20/24 05:30 Morphine Sulfate 2 mg Q30M PRN IV 10/20/24 05:30 Famotidine 20 mg Q12HR PO 10/20/24 22:00 Al Hydrox/Mg Hydrox/Simethicone 15 ml Q8HP PRN PO 10/20/24 20:00 Examination General Appearance: Alert, Oriented X3, Cooperative, No acute distress HEENT: Atraumatic, PERRLA, EOMI, Mucous membrane moist/pink Respiratory: Wheeze + Cardiovascular: Regular rate, Normal S1, Normal S2, No murmurs, chest wall tenderness present Abdominal: Normal bowel sounds, Soft, No tenderness, No hepatospenomegaly, No masses Extremities: No clubbing, No cyanosis, No edema, Normal pulses, No tenderness/swelling Skin: No rashes, No breakdown, No significant lesion Neuro: Normal gait, Normal speech, Strength at 5/5 X4 ext, Normal tone, Sensation intact, Cranial nerves 3-12 NL, Reflexes 2+ Psych/Mental Status: Anxiety+ laboratory and microbiology Laboratory Tests 10/20/24 14:17 10/20/24 02:25 Test 10/20/24 14:17 Range/Units Serum Glucose 79 74-106 mg/dL Problem List/Assessment/Plan Problem List/Assessment/Plan Cardiac chest pain, possibly musculoskeletal Chest wal tenderness EKG normal, troponins normal Hypocalcemia- 5.7 Treated with IV calcium Parathyroid hormone sent for stage 2 chronic kidney failure chronic HFwPEF Cardiomegaly in chest x-ray hyperlipidemia essential hypertension bipolar disorder seizure disorder Ruled out DVT Negative Doppler of bilateral legs DIET: Cardiac diet GI PROPHYLAXIS:: Famotidine CODE STATUS: Goal of care discussed, full code DISPOSITION: Med/surge Patient's status and plan discussed with the patient. Case discussed with Dr. Beltran . Plan discussed with: Patient Date of Service: Oct 20, 2024 Billing Provider: SULEIMAN BELTRAN MD Common Visit Codes: [id number] INP/OBS CARE(HIGH) TETE PEDRO RESIDENT Oct 20, 2024 18:13 SULEIMAN BELTRAN MD Oct 20, 2024 23:44
[2024-10-20] MEDS ORDERED: MAALOX PLUS or MAALOX 30 ML PO PRN (20:00)
[2024-10-20] MEDS: HYDROcodone-ACET 5/325MG TAB PO PRN (21:27)
[2024-10-20] MEDS: ATORVASTATIN 20 MG TAB PO SCH (21:31)
[2024-10-20] MEDS: FAMOTIDINE 20 MG TAB PO SCH (21:33)
[2024-10-21] VITALS (7 sets, daily range): BP systolic 106–130; BP diastolic 72–81; PULSE 82–98; RESP 16–20; TEMP 97.8–98.4; O2SAT 16–98
[2024-10-21 08:51] LABS: Albumin 3.7 g/dL (3.2-4.8); Alkaline Phosphatase 76 U/L (46-116); Anion Gap 10 (5-15); BUN/Creatinine Ratio 12.8 (10.0-20.0); Bilirubin, Total 0.3 mg/dL (0.2-1.0); Blood Urea Nitrogen 16 mg/dL (9-23); Carbon Dioxide 25 mmol/L (20-31); Chloride 105 mmol/L (98-107); Glucose 75 mg/dL (74-106); Potassium 3.9 mmol/L (3.5-5.1); Sodium 140 mmol/L (136-145); Total Protein 6.0 g/dL (5.7-8.2)
[2024-10-21 08:52] LABS: Alanine Aminotransferase < 9 U/L (7-40); Calcium 6.6 mg/dL (8.7-10.4); Hematocrit 29.8 % (36.0-46.0); Hemoglobin 10.1 g/dL (12.2-16.2); Mean Corpuscular Hemoglobin 32.1 pg (28.0-32.0); Mean Corpuscular Volume 94.1 fL (80.0-100.0); Nucleated Red Blood Cells % 0.1 %
[2024-10-21 12:52] LABS: Magnesium 1.9 mg/dL (1.6-2.6)
[2024-10-21] MEDS: MAGNESIUM SULFATE 1GM/100ML 100 ML IV ONE (14:22)
--- NOTE | 2024-10-21 16:25 | DVHPNRES ---
Progress Note Date Seen: Oct 21, 2024 Resident Creating Document: BENI HUNTER RESIDENT Has the PT tested + for MRSA If YES, has PT been informed?: No Medical Necessity Reason Pt with a Central, PICC or Fol: No Subjective Review of Systems Brief history on presentation: Aimee Rizo 39-year-old female with past medical history of stage 2 chronic kidney failure, chronic HFwPEF, hyperlipidemia, essential hypertension, bipolar disorder and seizure disorder presented to the ER with complaints of chest pain. Pain was substernal, rated 9/10, no radiation, aggravated with exercise and relieved with rest. 10/21/24: She was examined on bedside today. Reports resolution of chest pain. Labs show electrolyte abnormalities. We will continue to evaluate and manage. Objective vital signs Vital Sign Date Time Temp Pulse Resp B/P (MAP) Pulse Ox O2 Delivery O2 Flow Rate FiO2 10/21/24 13:00 98.0 96 16 130/79 (96) 98 98.0 10/21/24 08:00 Room Air* 0 21 Total Intake and Output 10/20/24 10/20/24 10/21/24 15:00 23:00 07:00 Intake Total 150 ml 1300 ml 800 ml Balance 150 ml 1300 ml 800 ml medications Current Medications Medications Dose Ordered Sig/Ailyn Route Start Time Stop Time Status Last Admin Dose Admin Atorvastatin Calcium 20 mg HS PO 10/20/24 22:00 10/20/24 21:31 20 MG Levothyroxine Sodium 100 mcg QAM@0600 PO 10/20/24 06:00 10/21/24 05:57 100 MCG Levetiracetam 100 ml @ 400 mls/hr BID IV 10/20/24 10:00 10/21/24 09:23 400 MLS/HR Quetiapine Fumarate 300 mg BID PO 10/20/24 10:00 10/21/24 09:24 300 MG Divalproex Sodium 500 mg BID PO 10/20/24 10:00 10/21/24 09:24 500 MG Sodium Chloride 10 ml Q8HR IV 10/20/24 06:00 10/21/24 14:21 10 ML Acetaminophen/ Hydrocodone Bitart 1 tab Q4HP PRN PO 10/20/24 05:00 10/20/24 21:27 1 TAB Ondansetron HCl 4 mg Q4HP PRN IV 10/20/24 05:00 Acetaminophen 650 mg Q6HP PRN PO 10/20/24 05:00 Nitroglycerin 0.4 mg Q5MINP PRN SL 10/20/24 05:30 Morphine Sulfate 2 mg Q30M PRN IV 10/20/24 05:30 Famotidine 20 mg Q12HR PO 10/20/24 22:00 10/21/24 09:25 20 MG Al Hydrox/Mg Hydrox/Simethicone 15 ml Q8HP PRN PO 10/20/24 20:00 Examination General Appearance: Alert, Oriented X3, Cooperative, No acute distress HEENT: Atraumatic, PERRLA, EOMI, Mucous membrane moist/pink Respiratory: Clear lungs bilaterally Cardiovascular: Regular rate, Normal S1, Normal S2, No murmurs Abdominal: Mild epigastric tenderness present. Normal bowel sounds, Soft, No tenderness, No hepatospenomegaly, No masses Extremities: No clubbing, No cyanosis, No edema, Normal pulses, No tenderness/swelling Skin: No rashes, No breakdown, No significant lesion Neuro: Normal gait, Normal speech, Strength at 5/5 X4 ext, Normal tone, Sensation intact, Cranial nerves 3-12 NL, Reflexes 2+ laboratory and microbiology Laboratory Tests 10/21/24 07:09 Test 10/21/24 07:09 Range/Units Serum Glucose 75 74-106 mg/dL Microbiology Date/Time Source Procedure Growth Status 10/21/24 04:31 Nose MRSA Screen - Final Complete Problem List/Assessment/Plan Problem List/Assessment/Plan Non Cardiac chest pain, possibly musculoskeletal Chest pain, ruled out ACS EKG normal, troponins normal Primary hyperparathyroidism Hypocalcemia Continue telemetry monitoring Managing with IV calcium, goal calcium 7 Supplementing magnesium Phosphorous, FADIA ordered Hx of Stage 2 chronic kidney failure Hx of Chronic diastolic heart failure/ HFpEF Hx of Hyperlipidemia Hx of Essential hypertension Hx of Bipolar disorder Hx of Seizure disorder Reconciled medications Ruled out DVT Negative Doppler of bilateral legs DIET: Cardiac diet GI PROPHYLAXIS: Famotidine CODE STATUS: Goal of care discussed, full code DISPOSITION: Med/surge Patient's status and plan discussed with the patient. Case discussed with Dr. Gilbert Plan discussed with: Patient My Orders My Orders Orders - BENI HUNTER RESIDENT Procedure Category Date Status Time Fadia; Direct LAB 10/21/24 In Process 12:10 Basic Metabolic Panel LAB 10/22/24 Verified 04:00 BENI HUNTER RESIDENT Oct 21, 2024 16:25
[2024-10-21] MEDS: CALCIUM GLUC 1,000mg/50ml-NS 50 ML IV SCH (16:55)
[2024-10-22 01:00] VITALS: BP 120/69; PULSE 99; RESP 20; TEMP 98.4; O2SAT 97
[2024-10-22 05:00] VITALS: BP 124/70; PULSE 96; RESP 18; TEMP 98.1; O2SAT 95
[2024-10-22 06:48] LABS: Chloride 106 mmol/L (98-107); Potassium 3.9 mmol/L (3.5-5.1); Sodium 142 mmol/L (136-145)
[2024-10-22 06:49] LABS: Anion Gap 10 (5-15); Carbon Dioxide 26 mmol/L (20-31)
[2024-10-22 06:54] LABS: BUN/Creatinine Ratio 13.8 (10.0-20.0); Blood Urea Nitrogen 17 mg/dL (9-23); Calcium 7.3 mg/dL (8.7-10.4); Glucose 95 mg/dL (74-106)
[2024-10-22 08:00] VITALS: PULSE 91; RESP 18; O2SAT 98
[2024-10-22 09:00] VITALS: BP 117/75; PULSE 91; RESP 18; TEMP 98.3; O2SAT 95
[2024-10-22] MEDS ORDERED: CALC1TAB64 PO (12:36)
[2024-10-22 13:00] VITALS: BP 130/74; PULSE 94; RESP 20; TEMP 98; O2SAT 96
[2024-10-22 13:36] VITALS: BP 130/76; PULSE 90; RESP 18; TEMP 98.6; O2SAT 98
--- NOTE | 2024-10-22 19:09 | DVHDSRES ---
Discharge Summary Date of Admission Resident Creating Document: TETE PEDRO RESIDENT Oct 20, 2024 at 05:27 Date of Discharge: Oct 22, 2024 Admitting Diagnosis To rule out ACS. Labs/Diagnostic Data: Laboratory Results Test 10/22/24 06:23 10/21/24 13:43 10/21/24 07:09 10/20/24 14:50 Sodium Level 142 mmol/L (136-145) Potassium Level 3.9 mmol/L (3.5-5.1) Chloride Level 106 mmol/L (98-107) Carbon Dioxide Level 26 mmol/L (20-31) Anion Gap 10 (5-15) Blood Urea Nitrogen 17 mg/dL (9-23) Creatinine 1.23 mg/dL (0.550-1.02) Glomerular Filtration Rate Calc 57 mL/min (>90) BUN/Creatinine Ratio 13.8 (10.0-20.0) Serum Glucose 95 mg/dL (74-106) Calcium Level 7.3 mg/dL (8.7-10.4) White Blood Count 7.3 10^3/uL (4.4-10.8) Red Blood Count 3.16 10^6/uL (4.0-5.20) Hemoglobin 10.1 g/dL (12.2-16.2) Hematocrit 29.8 % (36.0-46.0) Mean Corpuscular Volume 94.1 fL (80.0-100.0) Mean Corpuscular Hemoglobin 32.1 pg (28.0-32.0) Mean Corpuscular Hemoglobin Concent 34.1 g/dL (32.0-36.0) Red Cell Distribution Width 13.4 % (11.8-14.3) Platelet Count 139 10^3/uL (140-450) Mean Platelet Volume 9.6 fL (6.9-10.8) Neutrophils (%) (Auto) 57.7 % (37.0-80.0) Lymphocytes (%) (Auto) 31.7 % (10.0-50.0) Monocytes (%) (Auto) 9.1 % (0.0-12.0) Eosinophils (%) (Auto) 1.2 % (0.0-7.0) Basophils (%) (Auto) 0.3 % (0.0-2.0) Neutrophils # (Auto) 4.2 10 ^3/uL (1.6-8.6) Lymphocytes # (Auto) 2.3 10 ^3/uL (0.4-5.4) Monocytes # (Auto) 0.7 10 ^3/uL (0-1.3) Eosinophils # (Auto) 0.1 10 ^3/uL (0-0.8) Basophils # (Auto) 0 10 ^3/uL (0-0.2) Nucleated Red Blood Cells 0.1 % Phosphorus Level 6.1 mg/dL (2.4-5.1) Magnesium Level 1.9 mg/dL (1.6-2.6) Total Bilirubin 0.3 mg/dL (0.2-1.0) Aspartate Amino Transferase (AST) 9 U/L (13-40) Alanine Aminotransferase (ALT) < 9 U/L (7-40) Alkaline Phosphatase 76 U/L (46-116) Total Protein 6.0 g/dL (5.7-8.2) Albumin 3.7 g/dL (3.2-4.8) Urine Opiates Screen Neg (NEGATIVE) Urine Fentanyl Screen Neg (NEGATIVE) Urine Barbiturates Screen Neg (NEGATIVE) Urine Phencyclidine Screen Neg (NEGATIVE) Urine Amphetamines Screen Neg (NEGATIVE) Urine Benzodiazepines Screen Neg (NEGATIVE) Urine Cocaine Screen Neg (NEGATIVE) Urine Cannabinoids Screen Neg (NEGATIVE) Test 10/20/24 14:29 10/20/24 14:17 10/20/24 05:40 10/20/24 03:27 Influenza Type A Antigen Negative (Negative) Influenza Type B Antigen Negative (Negative) SARS-CoV-2 Antigen (Rapid) Negative (NEGATIVE) Erythrocyte Sedimentation Rate 28 mm/hr (0-20) D-Dimer, Quantitative 0.42 mg/L FEU (0.0-0.49) Vitamin D 25-Hydroxy 33.0 ng/mL (30.0-100) Parathyroid Hormone (Intact) 5.3 pg/mL (18.4-80.1) Plasma/Serum Blood Alcohol < 3.0 mg/dL (<10) Troponin I High Sensitivity 9 ng/L (</=34) C-Reactive Protein High Sensitivity 0.96 mg/dL (<1.0) Thyroid Stimulating Hormone (TSH) 1.87 uIU/mL (0.55-4.78) Beta HCG, Quantitative 0.7 mIU/mL (1.5-4.2) Test 10/20/24 02:25 B-Type Natriuretic Peptide 27.42 pg/mL (0-100) Other Laboratory Tests 10/22/24 06:23 10/21/24 07:09 Brief Hx & Hospital Course: 39-year-old female with past medical history of stage 2 chronic kidney failure, chronic HFwPEF, hyperlipidemia, essential hypertension, bipolar disorder and seizure disorder presented to the ED with complaints of chest pain she describes the chest pain as substernal rated it as 9/10, started from yesterday, no radiation, aggravated with exercise and relieved with rest. Troponin was normal. EKG showed prolonged QT interval. Doppler showed no signs of right or left DVT. Psychiatry consultation was given. Hypocalcemia due to hypoparathyroidism was diagnosed. Hypocalcemia was corrected with IV calcium. Patient was symptomatically better and hence discharged. Advised to visit PCP and shaving machine operator for hypoparathyroidism in the next week. Condition at Discharge: Good Final Diagnosis/Problems List Cardiac chest pain, possibly musculoskeletal Hypocalcemia asymptomatic Primary Hypoparathyroidism stage 2 chronic kidney failure chronic HFwPEF Cardiomegaly in chest x-ray hyperlipidemia essential hypertension bipolar disorder seizure disorder Ruled out DVT Discharge Disposition: Home Discharge Instruct/Medications Diet: Cardiac 2g Na,low cholest Activity: No Restrictions, As Tolerated Follow Up/Referral: Follow up with PCP in 7 days Follow up with shaving machine operator in 7 days for primary hypoparathyroidism Medications: Tab CALCIUM/VIT D (600MG/400IU) PO once a day X 7 days Continue home medications Scheduled Atorvastatin Calcium (Atorvastatin Calcium), 1 TAB PO DAILY, (Reported) Calcium Carbonate-Cholecalcife (Calcium 500 +D3 500-600 mg-Unit), 1 TAB PO DAILY Cholecalciferol (Vitamin D), 5,000 UNIT OR DAILY Divalproex Sodium (Divalproex Sodium), 1 TAB PO BID, (Reported) Docusate Sodium (Docusate Sodium), 1 PO DAILY, (Reported) Doxycycline Hyclate (Doxycycline Hyclate), 100 MG PO BID Famotidine (Famotidine), 1 TAB PO BID, (Reported) Ferrous Sulfate (Ferosul), 1 TAB PO DAILY, (Reported) Furosemide (Furosemide), 1 TAB PO DAILY, (Reported) Hydroxyzine HCl (Hydroxyzine Hydrochloride), 1 TAB PO BID, (Reported) Levetiracetam (Levetiracetam), 1 TAB PO BID, (Reported) Levothyroxine Sodium (Levothyroxine Sodium), 1 TAB PO QAM, (Reported) Metronidazole (Flagyl), 500 MG PO BID Potassium Bicarbonate-Citric A (Effer-K), 1 TAB PO DAILY, (Reported) Quetiapine Fumerate (Quetiapine Fumarate), 1 TAB PO BID, (Reported) Senna (Senna), 2 TAB PO BID, (Reported) Sertraline Hcl (Sertraline Hcl), 1 TAB PO DAILY, (Reported) Scheduled PRN Zolpidem Tartrate (Zolpidem Tartrate), 2 TAB PO HSPRN PRN, (Reported) Durable Medical Equipment Elastic Bandages & Supports (Medical Compression Stock), UNITS XX, (DME) Discharge Statement: "Patient was advised to return to the ER or call 911 if any headaches, dizziness, shortness of breath, chest pain, abdominal pain, bleeding, fevers, or worsening of medical condition. Patient was counseled about treatment plan, medications, possible side effects, patientverbalized understanding. All questions were answered to the best of my ability. This discharge took greater then 30 minutes in planning, reviewing documentation, counseling the patient, and discussing with other team members." ASSESSMENT ASSESSMENT Assessment Non Cardiac chest pain, possibly musculoskeletal Primary hypoparathyroidism - Hypocalcemia stage 2 chronic kidney failure chronic HFwPEF hyperlipidemia essential hypertension bipolar disorder seizure disorder Ruled out DVT TETE PEDRO RESIDENT Oct 22, 2024 19:09
--- NOTE | 2024-10-23 10:36 | ECG ---
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
== END 2024-10-22 15:55 | disposition home or self-care (01) | DRG 203 ==
LOC: ER 02:02 → EDBD 02:02 → OVERFLOW 05:27 → TELE-EAST 12:38
PROVIDERS: ADMIT Nurse Practitioner Family; ATTEND Nurse Practitioner Family
DX: R07.89 Other chest pain (principal); N17.9 Acute kidney failure, unspecified; E83.51 Hypocalcemia; N18.2 Chronic kidney disease, stage 2 (mild); F31.9 Bipolar disorder, unspecified; F20.9 Schizophrenia, unspecified; F41.9 Anxiety disorder, unspecified; E78.5 Hyperlipidemia, unspecified; G40.909 Epilepsy, unspecified, not intractable, without status epilepticus; I50.32 Chronic diastolic (congestive) heart failure; I13.0 Hypertensive heart and chronic kidney disease with heart failure and stage 1 through stage 4 chronic kidney disease, or unspecified chronic kidney disease; Z79.899 Other long term (current) drug therapy
CPT/HCPCS: 36415; 71045; 80048; 80053; 80307; 80320; 82306; 82310; 83735; 83880; 83970; 84100; 84443; 84484; 84702; 85025; 85379; 85652; 86038; 86141; 87081; 87426; 87804; 93005; 93970; 96365; G0378

== ENCOUNTER 2024-11-02 | Emergency (ER) | payer MEDICAID ==
[~2024-11-02] VITALS: Ht 162.6 cm; Wt 86.4 kg
[~2024-11-02] MED LIST changes: +CALC1TAB64 PO
--- NOTE | 2024-11-02 00:30 | ED.PDOC ---
History of Present Illness HPI Comments 39-year-old female presents to the emergency department via EMS with a chief complaint of anxiety onset today. Patient states she began experiencing palpitations, shortness of breath, anxiety. For the past few days patient has been experiencing difficulty sleeping. PMHx anxiety, CHF, CKF, schizophrenia, seizures, thyroid disease, HTN, HLD. Denies chest pain, nausea, vomiting, diarrhea, fever, chills, SI, HI, hallucinations. No other symptoms or modifying factors present at this time. Chief Complaint: Anxiety Time Seen by MD: 00:25 Reviewed Notes: Medications, Allergies Allergies: Coded Allergies: NO KNOWN ALLERGIES (Unverified , 08/23/24) Home Meds Active Scripts Trazodone Hcl (Trazodone Hcl) 150 Mg Tab, 1 TAB PO QPM for 60 Days, #60 TAB 1 Refill Prov:MANGO GOODMAN MD 11/02/24 Calcium Carbonate-Cholecalcife (Calcium 500 +D3 500-600 mg-Unit) 1 Tab Tab, 1 TAB PO DAILY for 14 Days, #14 TAB Prov:TETE PEDRO RESIDENT 10/22/24 Metronidazole (Flagyl) 500 Mg Tab, 500 MG PO BID for 14 Days, #28 TAB Prov:EMILIANA PRO RESIDENT 10/04/24 Doxycycline Hyclate (Doxycycline Hyclate) 100 Mg Tab, 100 MG PO BID for 14 Days, #28 TAB Prov:EMILIANA PRO RESIDENT 10/04/24 Cholecalciferol (VITAMIN D) 5,000 Unit Tab, 5000 UNIT OR DAILY for 30 Days, #30 TAB 0 Refills Prov:ROBERT REIS RESIDENT 08/30/24 Elastic Bandages & Supports (MEDICAL COMPRESSION STOCK) Stocking Mis, UNITS XX, #2 Prov:AGUSTÍN CARMONA MD 08/24/24 Reported Medications Zolpidem Tartrate (Zolpidem Tartrate) 5 Mg Tab, 2 TAB PO HSPRN PRN 10/03/24 Sertraline Hcl (Sertraline Hcl) 25 Mg Tab, 1 TAB PO DAILY 10/03/24 Ferrous Sulfate (Ferosul) 325 Mg Tab, 1 TAB PO DAILY 10/03/24 Divalproex Sodium (Divalproex Sodium) 500 Mg Tab, 1 TAB PO BID 10/03/24 Quetiapine Fumerate (QUETIAPINE FUMARATE) 400 Mg Tab, 1 TAB PO BID 10/03/24 Hydroxyzine HCl (Hydroxyzine Hydrochloride) 50 Mg Tab, 1 TAB PO BID 10/03/24 Famotidine (Famotidine) 20 Mg Tab, 1 TAB PO BID 10/03/24 Docusate Sodium (Docusate Sodium) 250 Mg Cap, 1 PO DAILY 10/03/24 Senna (Senna) 8.6 Mg Tab, 2 TAB PO BID 10/03/24 Atorvastatin Calcium (ATORVASTATIN CALCIUM) 40 Mg Tab, 1 TAB PO DAILY 10/03/24 Furosemide (Furosemide) 40 Mg Tab, 1 TAB PO DAILY 10/03/24 Levothyroxine Sodium (Levothyroxine Sodium) 100 Mcg Tab, 1 TAB PO QAM 10/03/24 Levetiracetam (Levetiracetam) 500 Mg Tab, 1 TAB PO BID 10/03/24 Potassium Bicarbonate-Citric A (Effer-K) 20 Meq Tab, 1 TAB PO DAILY 10/03/24 Information Source: Patient, Emergency Med Personnel Mode of Arrival: EMS Severity: Moderate Timing: Hours Duration: Since onset Prehospital treatment: None Past Medical History PAST MEDICAL HISTORY: Anxiety, CHF, CKF, High Lipids, HTN, Schizophrenia, Seizures, Thyroid Surgical History: Denies all surgeries REBRANDER History: Denies all REBRANDER Hx Family History Family History: Unknown Social History Smoker: Non-Smoker Alcohol: Denies ETOH Use Drugs: Denies Drug Use Lives In: Assisted Care Constitutional: denies: chills, diaphoresis, fatigue, fever, malaise, sweats, weakness, others EENTM: denies: blurred vision, double vision, ear bleeding, ear discharge, ear drainage, ear pain, ear ringing, eye pain, eye redness, hearing loss, mouth pain, mouth swelling, nasal discharge, nose bleeding, nose congestion, nose pain, photophobia, tearing, throat pain, throat swelling, voice changes, others Respiratory: reports: shortness of breath; denies: cough, hemoptysis, orthopnea, SOB at rest, SOB with excertion, stridor, wheezing, others Cardiovascular: reports: palpitations; denies: chest pain, dizzy spells, diaphoresis, Dyspnea on exertion, edema, irregular heart beat, left arm pain, lightheadedness, PND, syncope, others Gastrointestinal: denies: abdomen distended, abdominal pain, blood streaked bowels, constipated, diarrhea, dysphagia, difficulty swallowing, hematemesis, melena, nausea, poor appetite, poor fluid intake, rectal bleeding, rectal pain, vomiting, others Genitourinary: denies: abnormal vagina bleeding, burning, dyspareunia, dysuria, flank pain, frequency, hematuria, incontinence, pain, , vagina discharge, urgency, others Neurological: denies: dizziness, fainting, headache, left sided numbness, left sided weakness, numbness, paresthesia, pre-existing deficit, right sided numbness, right sided weakness, seizure, speech problems, tingling, tremors, weakness, others Musculoskeletal: denies: back pain, gout, joint pain, joint swelling, muscle pain, muscle stiffness, neck pain, others Integumetry: denies: bruises, change in color, change in hair/nails, dryness, laceration, lesions, lumps, rash, wounds, others Allergic/Immunocompromised: denies: Difficulty Healing, Frequent Infections, Hives, Itching, others Hematologic/Lymphatic: denies: anemia, blood clots, easy bleeding, easy bruising, swollen glands, others Endocrine: denies: excessive hunger, excessive sweating, excessive thirst, excessive urination, flushing, intolerance to cold, intolerance to heat, unexplained weight gain, unexplained weight loss, others Psychiatric: reports: anxiety, sleepless; denies: bipolar disorder, depression, hopeless, panic disorder, schizophrenia, suicidal, others All Other Systems: Reviewed and Negative Physical Exam General Appearance: No Apparent Distress, Normal HEENT: Normal ENT Inspection, Pharynx Normal, TMs Normal Neck: Full Range of Motion, Non-Tender, Normal, Normal Inspection Respiratory: Chest Non-Tender, Lungs Clear, No Accessory Muscle Use, No Respiratory Distress, Normal Breath Sounds Cardiovascular: No Edema, No JVD, No Murmur, No Gallop, Normal Peripheral Pulses, Regular Rate/Rhythm Breast Exam: Deferred Gastrointestinal: No Organomegaly, Non Tender, No Pulsatile Mass, Normal Bowel Sounds, Soft Genitalia: Deferred Pelvic: Deferred Rectal: Deferred Extremities: No calf tenderness, Normal capillary refill, Normal inspection, Normal range of motion, Non-tender, No pedal edema Musculoskeletal : Apperance: Normal Neurologic: Alert, boxing machine operator II-XII nml as Tested, No Motor Deficits, Normal Affect, Normal Mood, No Sensory Deficits Cerebellar Function: Normal Reflexes: Normal Skin: Dry, Normal Color, Warm Lymphatic: No Adenopathy Was a procedure done? Was a procedure done?: No Differential Dx Considerations may include: Differential diagnosis includes but not limited to: Coronary ischemia, SVT, atrial fibrillation, ventricular tachycardia, dehydration, sepsis and others X-Ray, Labs, Meds, VS Vital Signs Date Time Temp Pulse Resp B/P (MAP) Pulse Ox O2 Delivery O2 Flow Rate FiO2 11/02/24 02:34 98.0 89 18 130/72 (91) 98 98.0 11/02/24 00:06 98.4 97 18 131/65 97 98.4 Current Medications Medications (Trade) Dose Ordered Sig/Ailyn Route Start Time Stop Time Status Last Admin Lorazepam (Ativan Tablet) 0.5 mg ONCE ONCE PO 11/02/24 00:30 11/02/24 00:31 DC 11/02/24 00:44 Time of 1ST Reevaluation: 00:55 Reevaluation 1ST: Unchanged Patient Education/Counseling: Diagnosis, Treatment Family Education/Counseling: No Family Present SEPSIS Sepsis Screen Date sepsis recognized/suspect: Nov 02, 2024 Time Sepsis recognized/suspect: 0005 Recent Procedure: No On Antibiotic Therapy: No Respiratory Rate >20: No Heart Rate >90: Yes Temp<36 C (96.8 F) or >38.3 C: No SBP <90 or MAP <65 mmHG: No New Acute Mental Status Change: No Is the patient on CPAP, BIPAP,: No Physician Orders Electrocardigram (11/02/24 00:24) Check Blood Glucose (11/02/24 00:24) Vital Signs Date Time Temp Pulse Resp B/P (MAP) Pulse Ox O2 Delivery O2 Flow Rate FiO2 11/02/24 02:34 98.0 89 18 130/72 (91) 98 98.0 11/02/24 00:06 98.4 97 18 131/65 97 98.4 Medications Medications Dose Ordered Sig/Ailyn Route Start Time Stop Time Status Last Admin Dose Admin Lorazepam 0.5 mg ONCE ONCE PO 11/02/24 00:30 11/02/24 00:31 DC 11/02/24 00:44 Departure 1 Departure Time of Disposition: 03:00 Impression: Primary Impression: Stress and adjustment reaction Disposition: 01 HOME / SELF CARE / HOMELESS Condition: Stable e-Prescriptions Trazodone Hcl (Trazodone Hcl) 150 Mg Tab 1 TAB PO QPM for 60 Days, #60 TAB 1 Refill Prov: MANGO GOODMAN MD 11/02/24 Discharged With: Self Critical Care Note Critical Care Time?: No Stability Stability form required: No I personally scribed for MANGO GOODMAN MD ([email or web address]) on 11/02/24 at 00:30. Electronically submitted by Gail Jack ([email or web address]). MANGO GOODMAN MD Nov 02, 2024 00:30
[2024-11-02] MEDS: LORazepam 0.5 MG TAB PO ONE (00:44)
[2024-11-02] MEDS ORDERED: TRAZ1TAB12 PO (02:23)
[2024-11-02 02:34] VITALS: BP 130/72; PULSE 89; RESP 18; TEMP 98; O2SAT 98
== END 2024-11-02 02:45 | disposition home or self-care (01) ==
LOC: EDBD → ER 00:10
DX: F43.22 Adjustment disorder with anxiety (principal); I13.0 Hypertensive heart and chronic kidney disease with heart failure and stage 1 through stage 4 chronic kidney disease, or unspecified chronic kidney disease; N18.9 Chronic kidney disease, unspecified; I50.9 Heart failure, unspecified; F20.9 Schizophrenia, unspecified; E78.5 Hyperlipidemia, unspecified; Z79.899 Other long term (current) drug therapy; Z79.890 Hormone replacement therapy

== ENCOUNTER 2024-11-05 13:04 | Inpatient (IN) | payer MEDICAID ==
[~2024-11-05] VITALS: Ht 152.4 cm; Wt 97.2 kg
[~2024-11-05 13:04] MED LIST changes: +TRAZ1TAB12 PO
[2024-11-05 13:49] LABS: Hematocrit 30.1 % (36.0-46.0); Hemoglobin 10.2 g/dL (12.2-16.2); Mean Corpuscular Hemoglobin 31.8 pg (28.0-32.0); Mean Corpuscular Volume 93.2 fL (80.0-100.0); Nucleated Red Blood Cells % 0.0 %
[2024-11-05 14:02] LABS: Chloride 102 mmol/L (98-107); Potassium 3.5 mmol/L (3.5-5.1); Sodium 142 mmol/L (136-145)
[2024-11-05 14:03] LABS: Anion Gap 10 (5-15); Carbon Dioxide 30 mmol/L (20-31)
[2024-11-05 14:08] LABS: BUN/Creatinine Ratio 8.1 (10.0-20.0); Blood Urea Nitrogen 10 mg/dL (9-23); Glucose 94 mg/dL (74-106)
[2024-11-05 14:16] LABS: Calcium 6.0 mg/dL (8.7-10.4)
--- NOTE | 2024-11-05 14:33 | DVH ---
BILATERAL LOWER EXTREMITY VENOUS DUPLEX REASON FOR EXAMINATION: Bilateral lower extremity pain and swelling. COMPARISON: US BILAT LOWER DVT on DOS: 10/20/24 TECHNIQUE: Using real-time freeze-frame technique with a high-frequency transducer, multiple longitu dinal and transverse sections were obtained. Simultaneous color flow and spectral Doppler imaging wa s performed. FINDINGS: There is good visualization of the deep venous system with no intraluminal filling defects identified. Normal venous compressibility is seen and there is flow augmentation. Color flow Doppler imaging is unremarkable. IMPRESSION: NO EVIDENCE OF DEEP VENOUS THROMBOSIS.
--- NOTE | 2024-11-05 21:38 | ED.PDOC ---
History of Present Illness HPI Comments This is a 39-year-old female who comes in with chief complaint of leg swelling. The patient currently lives in a fpc and she stating that the left lower extremity is worse in the right lower extremity. EN route, the patient's Accu- Chek was 112. Currently the patient is on Lasix. The patient denies any chest pain or shortness for breath. There has been no nausea, vomiting or diarrhea. The patient does has a history of schizophrenia. She is not the best historian. Chief Complaint: Lower Extremity Time Seen by MD: 13:12 Reviewed Notes: Nurses Notes, Medications, Allergies (No allergies to medications) Allergies: Coded Allergies: NO KNOWN ALLERGIES (Unverified , 08/23/24) Home Meds Active Scripts Trazodone Hcl (Trazodone Hcl) 150 Mg Tab, 1 TAB PO QPM for 60 Days, #60 TAB 1 Refill Prov:MANGO GOODMAN MD 11/02/24 Calcium Carbonate-Cholecalcife (Calcium 500 +D3 500-600 mg-Unit) 1 Tab Tab, 1 TAB PO DAILY for 14 Days, #14 TAB Prov:TETE PEDRO RESIDENT 10/22/24 Metronidazole (Flagyl) 500 Mg Tab, 500 MG PO BID for 14 Days, #28 TAB Prov:EMILIANA PRO RESIDENT 10/04/24 Doxycycline Hyclate (Doxycycline Hyclate) 100 Mg Tab, 100 MG PO BID for 14 Days, #28 TAB Prov:EMILIANA PRO RESIDENT 10/04/24 Cholecalciferol (VITAMIN D) 5,000 Unit Tab, 5000 UNIT OR DAILY for 30 Days, #30 TAB 0 Refills Prov:ROBERT REIS RESIDENT 08/30/24 Elastic Bandages & Supports (MEDICAL COMPRESSION STOCK) Stocking Mis, UNITS XX, #2 Prov:AGUSTÍN CARMONA MD 08/24/24 Reported Medications Zolpidem Tartrate (Zolpidem Tartrate) 5 Mg Tab, 2 TAB PO HSPRN PRN 10/03/24 Sertraline Hcl (Sertraline Hcl) 25 Mg Tab, 1 TAB PO DAILY 10/03/24 Ferrous Sulfate (Ferosul) 325 Mg Tab, 1 TAB PO DAILY 10/03/24 Divalproex Sodium (Divalproex Sodium) 500 Mg Tab, 1 TAB PO BID 10/03/24 Quetiapine Fumerate (QUETIAPINE FUMARATE) 400 Mg Tab, 1 TAB PO BID 10/03/24 Hydroxyzine HCl (Hydroxyzine Hydrochloride) 50 Mg Tab, 1 TAB PO BID 10/03/24 Famotidine (Famotidine) 20 Mg Tab, 1 TAB PO BID 10/03/24 Docusate Sodium (Docusate Sodium) 250 Mg Cap, 1 PO DAILY 10/03/24 Senna (Senna) 8.6 Mg Tab, 2 TAB PO BID 10/03/24 Atorvastatin Calcium (ATORVASTATIN CALCIUM) 40 Mg Tab, 1 TAB PO DAILY 10/03/24 Furosemide (Furosemide) 40 Mg Tab, 1 TAB PO DAILY 10/03/24 Levothyroxine Sodium (Levothyroxine Sodium) 100 Mcg Tab, 1 TAB PO QAM 10/03/24 Levetiracetam (Levetiracetam) 500 Mg Tab, 1 TAB PO BID 10/03/24 Potassium Bicarbonate-Citric A (Effer-K) 20 Meq Tab, 1 TAB PO DAILY 10/03/24 Information Source: Patient Mode of Arrival: EMS Severity: Moderate Timing: Days Duration: Since onset Prehospital treatment: None Associated signs and symptoms Generalized weakness, electrolyte imbalance, dehydration Past Medical History PAST MEDICAL HISTORY: Anxiety, CHF, CKF, DM, High Lipids, HTN, Schizophrenia, Seizures, Thyroid Surgical History: Cholecystectomy CORRECTIONAL PROGRAM OFFICER History: Denies all CORRECTIONAL PROGRAM OFFICER Hx Family History Family History: Unknown Social History Smoker: Non-Smoker Alcohol: Denies ETOH Use Drugs: Denies Drug Use Lives In: Assisted Care Constitutional: denies: chills, diaphoresis, fatigue, fever, malaise, sweats, weakness, others EENTM: denies: blurred vision, double vision, ear bleeding, ear discharge, ear drainage, ear pain, ear ringing, eye pain, eye redness, hearing loss, mouth pain, mouth swelling, nasal discharge, nose bleeding, nose congestion, nose pain, photophobia, tearing, throat pain, throat swelling, voice changes, others Respiratory: denies: cough, hemoptysis, orthopnea, SOB at rest, shortness of breath, SOB with excertion, stridor, wheezing, others Cardiovascular: denies: chest pain, dizzy spells, diaphoresis, Dyspnea on exertion, edema, irregular heart beat, left arm pain, lightheadedness, palpitations, PND, syncope, others Gastrointestinal: denies: abdomen distended, abdominal pain, blood streaked bowels, constipated, diarrhea, dysphagia, difficulty swallowing, hematemesis, melena, nausea, poor appetite, poor fluid intake, rectal bleeding, rectal pain, vomiting, others Genitourinary: denies: abnormal vagina bleeding, burning, dyspareunia, dysuria, flank pain, frequency, hematuria, incontinence, pain, , vagina discharge, urgency, others Neurological: denies: dizziness, fainting, headache, left sided numbness, left sided weakness, numbness, paresthesia, pre-existing deficit, right sided numbness, right sided weakness, seizure, speech problems, tingling, tremors, weakness, others Musculoskeletal: reports: others (Bilateral leg swelling); denies: back pain, gout, joint pain, joint swelling, muscle pain, muscle stiffness, neck pain Integumetry: denies: bruises, change in color, change in hair/nails, dryness, laceration, lesions, lumps, rash, wounds, others Allergic/Immunocompromised: denies: Difficulty Healing, Frequent Infections, Hives, Itching, others Hematologic/Lymphatic: denies: anemia, blood clots, easy bleeding, easy bruising, swollen glands, others Endocrine: denies: excessive hunger, excessive sweating, excessive thirst, excessive urination, flushing, intolerance to cold, intolerance to heat, unexplained weight gain, unexplained weight loss, others Psychiatric: denies: anxiety, bipolar disorder, depression, hopeless, panic disorder, schizophrenia, sleepless, suicidal, others Physical Exam General Appearance: Moderate Distress HEENT: Normal ENT Inspection, Pharynx Normal, TMs Normal Neck: Full Range of Motion, Non-Tender, Normal, Normal Inspection Respiratory: Chest Non-Tender, Lungs Clear, No Accessory Muscle Use, No Respiratory Distress, Normal Breath Sounds Cardiovascular: No Edema, No JVD, No Murmur, No Gallop, Normal Peripheral Pulses, Regular Rate/Rhythm Breast Exam: Deferred Gastrointestinal: No Organomegaly, Non Tender, No Pulsatile Mass, Normal Bowel Sounds, Soft Genitalia: Deferred Pelvic: Deferred Rectal: Deferred Extremities: No calf tenderness, Normal capillary refill, Pedal edema Musculoskeletal : Apperance: Normal Neurologic: Alert, protective services officer II-XII nml as Tested, No Motor Deficits, Normal Affect, Normal Mood, No Sensory Deficits Cerebellar Function: Normal Reflexes: Normal Skin: Dry, Normal Color, Warm Lymphatic: No Adenopathy Was a procedure done? Was a procedure done?: No Differential Dx Considerations may include: Edema, dehydration, DVT X-Ray, Labs, Meds, VS Vital Signs Date Time Temp Pulse Resp B/P (MAP) Pulse Ox O2 Delivery O2 Flow Rate FiO2 11/05/24 13:11 98.4 94 18 118/70 97 98.4 Lab Test 11/05/24 13:27 Range/Units White Blood Count 4.6 4.4-10.8 10^3/uL Red Blood Count 3.22 L 4.0-5.20 10^6/uL Hemoglobin 10.2 L 12.2-16.2 g/dL Hematocrit 30.1 L 36.0-46.0 % Mean Corpuscular Volume 93.2 80.0-100.0 fL Mean Corpuscular Hemoglobin 31.8 28.0-32.0 pg Mean Corpuscular Hemoglobin Concent 34.1 32.0-36.0 g/dL Red Cell Distribution Width 13.8 11.8-14.3 % Platelet Count 139 L 140-450 10^3/uL Mean Platelet Volume 9.5 6.9-10.8 fL Neutrophils (%) (Auto) 55.3 37.0-80.0 % Lymphocytes (%) (Auto) 31.6 10.0-50.0 % Monocytes (%) (Auto) 11.2 0.0-12.0 % Eosinophils (%) (Auto) 1.5 0.0-7.0 % Basophils (%) (Auto) 0.4 0.0-2.0 % Neutrophils # (Auto) 2.6 1.6-8.6 10 ^3/uL Lymphocytes # (Auto) 1.5 0.4-5.4 10 ^3/uL Monocytes # (Auto) 0.5 0-1.3 10 ^3/uL Eosinophils # (Auto) 0.1 0-0.8 10 ^3/uL Basophils # (Auto) 0 0-0.2 10 ^3/uL Nucleated Red Blood Cells 0.0 % Sodium Level 142 136-145 mmol/L Potassium Level 3.5 3.5-5.1 mmol/L Chloride Level 102 98-107 mmol/L Carbon Dioxide Level 30 20-31 mmol/L Anion Gap 10 5-15 Blood Urea Nitrogen 10 9-23 mg/dL Creatinine 1.23 H 0.550-1.02 mg/dL Glomerular Filtration Rate Calc 57 >90 mL/min BUN/Creatinine Ratio 8.1 L 10.0-20.0 Serum Glucose 94 74-106 mg/dL Calcium Level 6.0 *L 8.7-10.4 mg/dL The patient's CBC shows anemia with a hemoglobin of 10.2 and hematocrit 30.1 The platelets show thrombocytopenia at 139 The chemistry panel is within normal limits The patient is still having persistent leg swelling and pain The patient is being admitted at this time. Images Reviewed?: Images reviewed and evaluated by me Time of 1ST Reevaluation: 21:37 Reevaluation 1ST: Unchanged Patient Education/Counseling: Diagnosis, Treatment, Prognosis Family Education/Counseling: No Family Present SEPSIS Sepsis Screen Date sepsis recognized/suspect: Nov 05, 2024 Time Sepsis recognized/suspect: 1310 Recent Procedure: No On Antibiotic Therapy: No Respiratory Rate >20: No Heart Rate >90: Yes Temp<36 C (96.8 F) or >38.3 C: No SBP <90 or MAP <65 mmHG: No New Acute Mental Status Change: No Is the patient on CPAP, BIPAP,: No Physician Orders Urinalysis (11/05/24 13:19) Heplock Iv (11/05/24 13:19) Product Safety Technician (11/05/24 13:19) Blood Pressure (11/05/24 13:19) Pulse Oximetry (11/05/24 13:19) Bilat Lower Dvt (11/05/24 13:19) Vital Signs Date Time Temp Pulse Resp B/P (MAP) Pulse Ox O2 Delivery O2 Flow Rate FiO2 11/05/24 13:11 98.4 94 18 118/70 97 98.4 Laboratory Tests Test 11/05/24 13:27 White Blood Count 4.6 10^3/uL (4.4-10.8) Departure 1 Departure Time of Disposition: 21:37 Impression: Primary Impression: Generalized weakness Additional Impression: Leg swelling Disposition: 09 ADMITTED INPATIENT Admit to: Med Surg Condition: Fair Critical Care Note Critical Care Time?: No Stability Stability form required: Yes Unstable for transfer: Telemetry monitoring (Telemetry monitoring required), ED Physician Assesment (Clinical assesment) Heart Score Heart Score: Heart Score Response (Comments) Value History Slightly Suspicious 0 EKG Normal 0 Age <45 0 Risk Factors No known risk factors 0 Troponin Normal limit 0 Total 0 RUDY PENA MD Nov 05, 2024 21:37
[2024-11-05] MEDS ORDERED: DOCUSATE SOD 100 MG CAP PO PRN (22:15)
[2024-11-05] MEDS ORDERED: ACETAMINOPHEN 325 MG TAB PO PRN (22:15)
[2024-11-05] MEDS ORDERED: ONDANSETRON HCL 4 MG/2 ML VIAL IV PRN (22:15)
[2024-11-05] MEDS ORDERED: MORPHINE SULFATE INJ 2 MG/ml SYRG IV PRN (22:15)
[2024-11-06] VITALS (10 sets, daily range): BP systolic 94–128; BP diastolic 57–97; PULSE 95–107; RESP 18–20; TEMP 98–98.9; O2SAT 91–99
[2024-11-06] MEDS: ENOXAPARIN SOD 40 MG/0.4 ML SYRINGE SC SCH (01:10)
--- NOTE | 2024-11-06 05:36 | DVHHPRES ---
History of Present Illness Resident Creating Document: AGUSTIN CORDERO RESIDENT History of Present Illness Patient is a 39-year-old female with past medical history of stage II CKD, chronic HFpEF, hyperlipidemia, essential hypertension, bipolar disorder, seizure disorder who came to the ED with chief complaint of bilateral leg swelling mostly on the left with pain which is 8/10 in intensity, starting at the calf radiating up to the thigh, aggravated on walking, relieved with rest. Patient is on Lasix, denies any blood in the stool, nausea, vomiting, dizziness, headaches. Patient is agitated, and is not a good historian. Bilateral lower extremity duplex showed no evidence of DVT. Patient also complains of generalized weakness. On arrival vitals were stable, labs showed hypocalcemia, for which albumin was ordered. Past surgical history: Denies Family History: Reviewed, noncontributory Personal history: Denies alcohol use, smoking, drug use PCP:Dr. Austin Review of Systems Constitutional: Yes: Weakness; No: Fever, Chills, Sweats, Malaise, Other Eyes: No: Pain, Vision change, Conjunctivae inflammation, Eyelid inflammation, Other, Redness ENT: No: Ear pain, Ear discharge, Nose pain, Nose discharge, Nose congestion, Mouth pain, Mouth swelling, Throat pain, Throat swelling, Other Respiratory: No: Cough, Dry, Shortness of breath, SOB with excertion, Wheezing, Hemoptysis, Pleuritic Pain, Sputum, Wheezing, Other Cardiovascular: No: Chest Pain, Palpitations, Orthopnea, Paroxysmal Noc. Dyspnea, Edema, Lt Headedness, Other Gastrointestinal: No: Nausea, Vomiting, Abdominal Pain, Diarrhea, Constipation, Melena, Hematochezia, Other Genitourinary: No Dysuria, No Frequency, No Incontinence, No Hematuria, No Retention, No Other Musculoskeletal: leg pain; No: other, neck pain, shoulder pain, arm pain, back pain, hand pain, foot pain Skin: No: Rash, Lesions, Jaundice, Bruising, Other Neurological: No: Weakness, Numbness, Incoordination, Change in speech, Confusion, Seizures, Other Allergies: Coded Allergies: NO KNOWN ALLERGIES (Unverified , 08/23/24) Medications Current Medications Medications Dose Ordered Sig/Ailyn Route Start Time Stop Time Status Last Admin Dose Admin Acetaminophen/ Hydrocodone Bitart 1 tab Q4HP PRN PO 11/05/24 22:15 Ondansetron HCl 4 mg Q4HP PRN IV 11/05/24 22:15 Docusate Sodium 100 mg BIDPRN PRN PO 11/05/24 22:15 Morphine Sulfate 2 mg Q4HPRN PRN IV 11/05/24 22:15 Famotidine 20 mg Q12HR PO 11/06/24 22:00 Spironolactone 25 mg DAILY PO 11/06/24 10:00 Lactulose 15 ml DAILY PO 11/06/24 10:00 Levetiracetam 500 mg BID PO 11/06/24 10:00 Levothyroxine Sodium 100 mcg QAM PO 11/06/24 07:00 Atorvastatin Calcium 40 mg DAILY PO 11/06/24 10:00 Cholecalciferol 5,000 unit DAILY PO 11/06/24 10:00 Ferrous Sulfate 325 mg DAILY PO 11/06/24 10:00 Quetiapine Fumarate 400 mg BID PO 11/06/24 10:00 Sertraline HCl 25 mg DAILY PO 11/06/24 10:00 Trazodone HCl 150 mg QPM PO 11/06/24 18:00 Furosemide 20 mg DAILY IV 11/06/24 10:00 Exam Vital Signs Vital Signs Date Time Temp Pulse Resp B/P (MAP) Pulse Ox O2 Delivery O2 Flow Rate FiO2 11/06/24 04:00 98.4 100 18 128/76 (93) 96 98.4 11/06/24 01:16 Room Air* 0 21 Exam General: Patient alert and oriented in person, place and time. Patient following commands. No distress HEENT: Normocephalic, atraumatic, moist mucous membranes Respiratory/pulmonary: Clear lungs bilaterally, vesicular murmurs present in almost all lung goddard, no associated crackles or wheezes. Cardiovascular: Normal heart sounds S1 and S2 with no associated murmurs Abdomen: Abdomen nondistended, there is no pain to palpation in any of the abdominal quadrants, no palpable masses. Extremities: Bilateral +1 pitting edema,. Left of tenderness, radiating to left thigh Peripheral Pulses: 3+ Radial (R). 3+ Radial (L). 3+ Dorsalis pedis (R). 3+ Dorsalis pedis(L) Skin: No rashes or pruritus, there is no sacral edema present at this time. Neurological: Intact cranial nerves with no focal neurologic deficits' Psych/mental status: Psych normal or agitated , speech normal Labs/Xrays Labs Test 11/05/24 13:27 Range/Units White Blood Count 4.6 4.4-10.8 10^3/uL Red Blood Count 3.22 L 4.0-5.20 10^6/uL Hemoglobin 10.2 L 12.2-16.2 g/dL Hematocrit 30.1 L 36.0-46.0 % Mean Corpuscular Volume 93.2 80.0-100.0 fL Mean Corpuscular Hemoglobin 31.8 28.0-32.0 pg Mean Corpuscular Hemoglobin Concent 34.1 32.0-36.0 g/dL Red Cell Distribution Width 13.8 11.8-14.3 % Platelet Count 139 L 140-450 10^3/uL Mean Platelet Volume 9.5 6.9-10.8 fL Neutrophils (%) (Auto) 55.3 37.0-80.0 % Lymphocytes (%) (Auto) 31.6 10.0-50.0 % Monocytes (%) (Auto) 11.2 0.0-12.0 % Eosinophils (%) (Auto) 1.5 0.0-7.0 % Basophils (%) (Auto) 0.4 0.0-2.0 % Neutrophils # (Auto) 2.6 1.6-8.6 10 ^3/uL Lymphocytes # (Auto) 1.5 0.4-5.4 10 ^3/uL Monocytes # (Auto) 0.5 0-1.3 10 ^3/uL Eosinophils # (Auto) 0.1 0-0.8 10 ^3/uL Basophils # (Auto) 0 0-0.2 10 ^3/uL Nucleated Red Blood Cells 0.0 % Sodium Level 142 136-145 mmol/L Potassium Level 3.5 3.5-5.1 mmol/L Chloride Level 102 98-107 mmol/L Carbon Dioxide Level 30 20-31 mmol/L Anion Gap 10 5-15 Blood Urea Nitrogen 10 9-23 mg/dL Creatinine 1.23 H 0.550-1.02 mg/dL Glomerular Filtration Rate Calc 57 >90 mL/min BUN/Creatinine Ratio 8.1 L 10.0-20.0 Serum Glucose 94 74-106 mg/dL Calcium Level 6.0 *L 8.7-10.4 mg/dL SEPSIS Sepsis Screen Date sepsis recognized/suspect: Nov 06, 2024 Time Sepsis recognized/suspect: 003 Recent Procedure: No On Antibiotic Therapy: No Respiratory Rate >20: No Heart Rate >90: Yes (96) Temp<36 C (96.8 F) or >38.3 C: No SBP <90 or MAP <65 mmHG: No New Acute Mental Status Change: No Is the patient on CPAP, BIPAP,: No Physician Orders Admit (11/05/24:09) Allergies (11/05/24 22:) Code Status (11/05/24:) Hydrocodone-Acet 5/325mg Tab ([place] 5/32 (11/05/24 22:15) Ondansetron Hcl (Zofran) (11/05/24 22:15) Docusate Sodium Capsule (Colace Capsule) (11/05/24 22:15) Complete Blood Count (11/06/24 04:00) Comprehensive Metabolic Panel (11/06/24 04:00) Condition: Serious (11/05/24:09) Bedrest With Bathroom Privileg (11/05/24:09) Morphine Sulfate Injection (11/05/24 22:15) Oxygen By Nasal Cannula (11/05/24:) Stat Ekg For Chest Pain (11/05/24:09) Notify Md Of Changes From Base (11/05/24:09) Flat Lock Machine Operator For 24 Hours (11/05/24:09) Emergency Dysrhythmia Protocol (11/05/24:) Rhythm Strips Once Every Shift (11/05/24 22:09) Drug Screen (11/06/24 01:30) Vitamin D, 25-Hydroxy (11/06/24 01:30) Hepatic Panel (11/06/24 04:00) Thyroid Stimulating Hormone (11/06/24 02:45) B-Type Natriuretic Peptide (11/06/24 02:45) Lactic Acid W/ Reflex Order (11/06/24 02:45) Prothrombin Time W/ Inr (11/06/24 02:45) Ammonia (11/06/24 02:45) Famotidine Tablet (Pepcid Tablet) (11/06/24 22:00) Spironolactone (Aldactone) (11/06/24 10:00) Blood Culture (11/06/24 02:56) Lactulose Oral (11/06/24 10:00) Phosphorus (11/06/24 04:00) Levetiracetam Tablet (Keppra Tablet) (11/06/24 10:00) Levothyroxine Tablet (Synthroid Tablet) (11/06/24 07:00) Atorvastatin (Lipitor) (11/06/24 10:00) Ferrous Sulfate Tablet (11/06/24 10:00) Quetiapine Fumarate Tablet (Seroquel Tab (11/06/24 10:00) Sertraline Hcl (Zoloft) (11/06/24 10:00) Trazodone Hcl (Desyrel) (11/06/24 18:00) Cholecalciferol Tablet (Vitamin D3 Table (11/06/24 10:00) Furosemide Injection (Lasix Injection) (11/06/24 10:00) Cardiac Diet-2gna,Lofat,Lochol (11/06/24 Breakfast) Vital Signs Date Time Temp Pulse Resp B/P (MAP) Pulse Ox O2 Delivery O2 Flow Rate FiO2 11/06/24 04:00 98.4 100 18 128/76 (93) 96 98.4 11/06/24 02:05 98.2 98 116/73 (87) 99 98.2 11/06/24 01:16 Room Air* 0 21 11/06/24 01:16 98.9 107 19 126/97 (107) 96 98.9 11/06/24 00:33 98.9 96 19 118/82 (94) 98.9 11/06/24 00:31 98 Room Air* 0 21 Medications Medications Dose Ordered Sig/Ailyn Route Start Time Stop Time Status Last Admin Dose Admin Enoxaparin Sodium 40 mg DAILY SC 11/05/24 22:15 11/06/24 02:56 DC 11/06/24 01:10 40 MG Assessment/Plan Assessment/Plan # Electrolyte imbalance #Primary Hypoparathyroidism #Recurrent hypocalcemia -Corrected calcium , pending -vitamin-D level ordered # normocytic anemia -ferrous sulfate #Hx of Stage 2 chronic kidney failure #Hx of Chronic diastolic heart failure/ HFpEF: Continue furosemide, #Hx of Essential hypertension: Continue home meds #Hx of Bipolar disorder: Continue home meds #Hx of Seizure disorder: Continue Keppra 500 #HX of hyperlipidemia #HX of hypothyroidism # HX of insomnia: Continue trazodone #HX anxiety disorder # HX vitamin-D deficiency # HX of GERD # grade 2 obesity BMI 37.2 PPI prophylaxis: Famotidine 40 mg DVT prophylaxis: Not indicated Goals of care addressed with the patient for more than 31 minutes: Full code status Case discussed with , patient and nurse Plan discussed with: Patient, Other (RN) My Orders Orders - AGUSTIN CORDERO RESIDENT Procedure Category Date Status Time Admit ADMIT 11/05/24 Transmitted 22:09 Allergies NNAMDI 11/05/24 In Process 22:09 Code Status CODE 11/05/24 Transmitted 22:09 Hydrocodone-Acet PHA 11/05/24 In Process 5/325mg Tab ([place] 22:15 Ondansetron Hcl PHA 11/05/24 In Process (Zofran) 22:15 Docusate Sodium PHA 11/05/24 In Process Capsule (Colace 22:15 Complete Blood Count LAB 11/06/24 Logged 04:00 Comprehensive LAB 11/06/24 Logged Metabolic Panel 04:00 Condition: Serious [facility] 11/05/24 In Process 22:09 Bedrest With Bathroom [facility] 11/05/24 In Process Privileg 22:09 Morphine Sulfate [facility] 11/05/24 In Process Injection 22:15 Oxygen By Nasal RT 11/05/24 Transmitted Cannula 22:09 Stat Ekg For Chest [facility] 11/05/24 In Process Pain 22:09 Notify Of Changes [facility] 11/05/24 In Process From Base 22:09 Flat Lock Machine Operator For [facility] 11/05/24 In Process 24 Hours 22:09 Emergency Dysrhythmia [facility] 11/05/24 In Process Protocol 22:09 Rhythm Strips Once [facility] 11/05/24 In Process Every Shift 22:09 Drug Screen LAB 11/06/24 Logged 01:30 Vitamin D, 25-Hydroxy LAB 11/06/24 Logged 01:30 Hepatic Panel LAB 11/06/24 Logged 04:00 Phosphorus LAB 11/06/24 Logged 04:00 Levetiracetam Tablet [facility] 11/06/24 In Process (Keppra Tablet) 10:00 Levothyroxine Tablet PH[facility] 11/06/24 In Process (Synthroid Tablet) 07:00 Atorvastatin (Lipitor) PHA 11/06/24 In Process 10:00 Ferrous Sulfate Tablet [facility] 11/06/24 In Process 10:00 Quetiapine Fumarate PHA 11/06/24 In Process Tablet (Seroquel Tab 10:00 Sertraline Hcl PHA 11/06/24 In Process (Zoloft) 10:00 Trazodone Hcl PHA 11/06/24 In Process (Desyrel) 18:00 Cholecalciferol PHA 11/06/24 In Process Tablet (Vitamin D3 10:00 Cardiac DIET 11/06/24 Verified Diet-2gna,Lofat,Lochol Breakfast Date of Service: Nov 06, 2024 Common Visit Codes: 78383-[id number] INP/OBS CARE (HIGH) Secondary Visit Codes: [id number] CARE PLAN 30 MINUTES AGUSTIN CORDERO RESIDENT Nov 06, 2024 05:36
[2024-11-06 07:01] LABS: INR 1.08 (0.9-1.15); Prothrombin Time 11.4 sec (9.3-11.8)
[2024-11-06 07:03] LABS: Hematocrit 29.2 % (36.0-46.0); Hemoglobin 10.2 g/dL (12.2-16.2); Mean Corpuscular Hemoglobin 32.4 pg (28.0-32.0); Mean Corpuscular Volume 93.1 fL (80.0-100.0); Nucleated Red Blood Cells % 0.0 %
[2024-11-06] MEDS: LEVOTHYROXINE SODIUM 100 MCG TAB PO SCH (07:16)
[2024-11-06] MEDS: FAMOTIDINE 20 MG TAB PO ONE (07:16)
[2024-11-06] MEDS: CALCIUM GLUC 1,000mg/50ml-NS 50 ML IV SCH (07:45)
[2024-11-06 07:50] LABS: Chloride 102 mmol/L (98-107); Sodium 143 mmol/L (136-145)
[2024-11-06 08:00] LABS: BUN/Creatinine Ratio 10.9 (10.0-20.0)
[2024-11-06 08:02] LABS: Alanine Aminotransferase < 9 U/L (7-40); Albumin 3.8 g/dL (3.2-4.8); Alkaline Phosphatase 78 U/L (46-116); Anion Gap 14 (5-15); Bilirubin, Direct 0.2 mg/dL (<0.3); Bilirubin, Total 0.5 mg/dL (0.2-1.0); Blood Urea Nitrogen 13 mg/dL (9-23); Carbon Dioxide 27 mmol/L (20-31); Glucose 81 mg/dL (74-106); Potassium 3.4 mmol/L (3.5-5.1); Total Protein 6.6 g/dL (5.7-8.2)
[2024-11-06 08:03] LABS: Calcium 5.9 mg/dL (8.7-10.4)
[2024-11-06] MEDS: CHOLECALCIFEROL (VITD3) 1,000UNIT=25mCg TAB PO SCH (10:00)
[2024-11-06] MEDS ORDERED: FUROSEMIDE 20 MG/2 ML VIAL IV SCH ×2 (10:00)
[2024-11-06] MEDS ORDERED: FUROSEMIDE 40 MG TAB PO SCH (10:00)
[2024-11-06] MEDS: LACTULOSE 20Gm/30ML SOLN PO SCH (10:00)
[2024-11-06] MEDS: SERTRALINE HCL 50 MG TAB PO SCH (10:56)
[2024-11-06] MEDS: ATORVASTATIN 20 MG TAB PO SCH (10:56)
[2024-11-06] MEDS: levETIRAcetam 500 MG TAB PO SCH (10:56)
[2024-11-06] MEDS: SPIRONOLACTONE 25 MG TAB PO SCH (10:56)
[2024-11-06] MEDS: FERROUS SULFATE 325mg EC TAB PO SCH (10:56)
[2024-11-06] MEDS: CALCIUM GLUC 1,000mg/50ml-NS 100 ML IV ONE (11:24)
--- NOTE | 2024-11-06 11:24 | DVHPNRES ---
Progress Note Date Seen: Nov 06, 2024 Resident Creating Document: ALEXUS PARTIDA RESIDENT Medical Necessity Reason Pt with a Central, PICC or Fol: No Subjective Review of Systems The patient was seen and examined at bedside today. She reports having left- sided leg swelling and pain. She denies any recent travel history, chest pain, shortness of breath, fever, abdominal pain any other complaints today. Patient has severe hypocalcemia, however she denies any thyroid surgery or radiation history. Patient lives in a assisted living facility. Objective vital signs Vital Sign Date Time Temp Pulse Resp B/P (MAP) Pulse Ox O2 Delivery O2 Flow Rate FiO2 11/06/24 09:00 98.0 95 18 124/77 (93) 99 98.0 11/06/24 01:16 Room Air* 0 21 Total Intake and Output 11/05/24 11/05/24 11/06/24 15:00 23:00 07:00 Intake Total 0 ml Balance 0 ml medications Current Medications Medications Dose Ordered Sig/Ailyn Route Start Time Stop Time Status Last Admin Dose Admin Acetaminophen/ Hydrocodone Bitart 1 tab Q4HP PRN PO 11/05/24 22:15 Ondansetron HCl 4 mg Q4HP PRN IV 11/05/24 22:15 Docusate Sodium 100 mg BIDPRN PRN PO 11/05/24 22:15 Morphine Sulfate 2 mg Q4HPRN PRN IV 11/05/24 22:15 Famotidine 20 mg Q12HR PO 11/06/24 22:00 Spironolactone 25 mg DAILY PO 11/06/24 10:00 11/06/24 10:56 25 MG Lactulose 15 ml DAILY PO 11/06/24 10:00 11/06/24 10:00 15 ML Levetiracetam 500 mg BID PO 11/06/24 10:00 11/06/24 10:56 500 MG Levothyroxine Sodium 100 mcg QAM PO 11/06/24 07:00 11/06/24 07:16 100 MCG Atorvastatin Calcium 40 mg DAILY PO 11/06/24 10:00 11/06/24 10:56 40 MG Cholecalciferol 5,000 unit DAILY PO 11/06/24 10:00 Ferrous Sulfate 325 mg DAILY PO 11/06/24 10:00 11/06/24 10:56 325 MG Quetiapine Fumarate 400 mg BID PO 11/06/24 10:00 11/06/24 10:55 400 MG Sertraline HCl 25 mg DAILY PO 11/06/24 10:00 11/06/24 10:56 25 MG Trazodone HCl 150 mg QPM PO 11/06/24 18:00 Examination Pt is lying on bed General Appearance: Alert, Oriented X3, Cooperative, Mild distress HEENT: Atraumatic, Mucous membranes moist/pink Respiratory: Clear to auscultation, Normal air movement, No added sounds Cardiovascular: Regular rate, Normal S1, Normal S2, No murmurs Abdominal/ : Active bowel sounds, Soft, no distention, lower abdominal tenderness Extremities: Bilateral leg edema, Normal pulses, Upper extremity resting tremor, left leg tenderness/swelling Skin: No Significant rash, except past surgical scars Neuro: Normal speech, sensorimotor deficits none Psych/Mental Status: Mental status NL, Mood NL [place] Sign and Trousseau sign positive. 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 daily Seizure disorder Continue Keppra 500 mg p.o. b.i.d. Seizures precautions Stage 2 chronic kidney disease Monitor labs and consult Nephrology Chronic diastolic heart failure/ HFpEF, not in exacerbation Furosemide discontinued due to concern for worsening hypocalcemia Diabetes mellitus type 2 Insulin sliding scale Hypothyroidism Levothyroxine 100 mcg p.o. Hypokalemia Repleted; magnesium level ordered Psychiatric: Bipolar syndrome Anxiety disorder Developmental delay Continue sertraline Quetiapine fumarate tablet 400 mg p.o. b.i.d. Insomnia Continue trazodone GERD Famotidine 20 mg b.i.d. Morbid Obesity BMI 37.2 with metabolic syndrome Counseled on healthy lifestyle modifications Left lower extremity swelling/pain; Ruled out DVT; could be related to hypocalcemia; no signs of infection Leg US negative for DVT GI prophylaxis: Famotidine DVT prophylaxis: enoxaparin Diet: Cardiac Goals of care discussed with the patient and the patient's caregiver for 20 minutes: Full code status Case discussed with Dr. Nava, patient, patient's caregiver, and RN Plan discussed with: Patient, Other (RN; the patient's caregiver) My Orders My Orders Orders - ALEXUS PARTIDA RESIDENT Procedure Category Date Status Time Potassium Er Tablet PHA 11/06/24 Verified (Klor-Con Tablet) 11:30 Addendum Addendum Addendum I was physically present for the camacho portions of the service provided to patient by THE RESIDENT. I have reviewed the documentation, discussed the case with resident and agree with the resident's documentation except as noted. Also the patient's clinical case was discussed with the patient's nurse. This medical document was created using an electronic medical record system with computerized dictation system. Although this document has been carefully reviewed, there might still be some phonetic and typographical errors. These areas are purely typographical due to imperfections of the software programs, and do not reflect any compromise in the patient's medical care. Late signature. Date of Service: Nov 06, 2024 Billing Provider: J CARLOS NAVA MD Common Visit Codes: 97155-IFPHGKGCBX INP/OBS CARE(HIGH) Secondary Visit Codes: 98247-[id number] CARE PLAN 30 MINUTES (20 minutes) ALEXUS PARTIDA Nov 06, 2024 11:24 ALEXUS MILTON RESIDENT Nov 06, 2024 22:20 YVONNE JARVIS RESIDENT Nov 07, 2024 07:02 J CARLOS NAVA MD Nov 07, 2024 09:08
[2024-11-06] MEDS: POTASSIUM CHL 10 Meq TABLET PO ONE (11:30)
[2024-11-06] MEDS ORDERED: DEXTROSE (50%) 50ML SYRG IV PRN (12:30)
[2024-11-06 16:23] LABS: Urine Protein, UAD TRACE (Negative)
[2024-11-06 16:48] LABS: Barbiturate Scree,Urine Neg (NEGATIVE); Benzodiazephine Screen, Urine Neg (NEGATIVE)
[2024-11-06 16:54] LABS: Amphetamine Screen, Urine Neg (NEGATIVE); Cannabinoid Screen, Urine Neg (NEGATIVE); Cocaine Screen, Urine Neg (NEGATIVE); Opiate Scree,Urine Neg (NEGATIVE); Phencyclidine Screen, Urine Neg (NEGATIVE)
[2024-11-06] MEDS: InsuLIN REG 1unit/0.01ml Soln (100units/ml) SC SCH (17:00)
[2024-11-06] MEDS: ACCU-CHEK COMFORT CURVE STRIP VI SCH (17:00)
[2024-11-06] MEDS: FAMOTIDINE 20 MG TAB PO SCH (21:12)
[2024-11-06] MEDS: HYDROcodone-ACET 5/325MG TAB PO PRN (21:13)
[2024-11-07] VITALS (7 sets, daily range): BP systolic 97–123; BP diastolic 43–87; PULSE 72–95; RESP 15–20; TEMP 97.8–98.4; O2SAT 90–99
[2024-11-07 05:48] LABS: Anion Gap 11 (5-15); Carbon Dioxide 26 mmol/L (20-31); Chloride 103 mmol/L (98-107); Potassium 4.2 mmol/L (3.5-5.1); Sodium 140 mmol/L (136-145)
[2024-11-07 05:49] LABS: Calcium 6.2 mg/dL (8.7-10.4)
[2024-11-07 05:54] LABS: BUN/Creatinine Ratio 15.4 (10.0-20.0); Blood Urea Nitrogen 19 mg/dL (9-23); Glucose 98 mg/dL (74-106)
[2024-11-07 05:59] LABS: Hematocrit 28.4 % (36.0-46.0); Hemoglobin 9.8 g/dL (12.2-16.2); Mean Corpuscular Hemoglobin 32.4 pg (28.0-32.0); Mean Corpuscular Volume 93.9 fL (80.0-100.0); Nucleated Red Blood Cells % 0.2 %
[2024-11-07] MEDS: ERGOCALCIFEROL 50,000 UNIT(1.25MG) CAP PO SCH (14:36)
--- NOTE | 2024-11-07 17:26 | DVHDSRES ---
Discharge Summary Date of Admission Resident Creating Document: ALEXUS PARTIDA Nov 05, 2024 at 22:09 Date of Discharge: Nov 07, 2024 Admitting Diagnosis Hypocalcemia secondary to primary hypoparathyroidism DVT ruled out Heart failure with preserved ejection fraction Stage II CKD Seizure disorder Labs/Diagnostic Data: Laboratory Results Test 11/07/24 12:32 11/07/24 05:12 11/06/24 12:58 11/06/24 06:10 POC Glucose 101 mg/dl (70-106) White Blood Count 4.5 10^3/uL (4.4-10.8) Red Blood Count 3.02 10^6/uL (4.0-5.20) Hemoglobin 9.8 g/dL (12.2-16.2) Hematocrit 28.4 % (36.0-46.0) Mean Corpuscular Volume 93.9 fL (80.0-100.0) Mean Corpuscular Hemoglobin 32.4 pg (28.0-32.0) Mean Corpuscular Hemoglobin Concent 34.5 g/dL (32.0-36.0) Red Cell Distribution Width 13.7 % (11.8-14.3) Platelet Count 128 10^3/uL (140-450) Mean Platelet Volume 9.6 fL (6.9-10.8) Neutrophils (%) (Auto) 47.6 % (37.0-80.0) Lymphocytes (%) (Auto) 37.6 % (10.0-50.0) Monocytes (%) (Auto) 12.6 % (0.0-12.0) Eosinophils (%) (Auto) 1.9 % (0.0-7.0) Basophils (%) (Auto) 0.3 % (0.0-2.0) Neutrophils # (Auto) 2.2 10 ^3/uL (1.6-8.6) Lymphocytes # (Auto) 1.7 10 ^3/uL (0.4-5.4) Monocytes # (Auto) 0.6 10 ^3/uL (0-1.3) Eosinophils # (Auto) 0.1 10 ^3/uL (0-0.8) Basophils # (Auto) 0 10 ^3/uL (0-0.2) Nucleated Red Blood Cells 0.2 % Sodium Level 140 mmol/L (136-145) Potassium Level 4.2 mmol/L (3.5-5.1) Chloride Level 103 mmol/L (98-107) Carbon Dioxide Level 26 mmol/L (20-31) Anion Gap 11 (5-15) Blood Urea Nitrogen 19 mg/dL (9-23) Creatinine 1.23 mg/dL (0.550-1.02) Glomerular Filtration Rate Calc 57 mL/min (>90) BUN/Creatinine Ratio 15.4 (10.0-20.0) Serum Glucose 98 mg/dL (74-106) Calcium Level 6.2 mg/dL (8.7-10.4) Urine Color Yellow (Yellow) Urine Clarity Clear (Clear) Urine pH 7.5 (5.0-9.0) Urine Specific [place] 1.023 (1.001-1.035) Urine Protein Trace (Negative) Urine Ketones Negative (Negative) Urine Blood Negative /uL (Negative) Urine Nitrite Negative (Negative) Urine Bilirubin Negative (Negative) Urine Urobilinogen Normal mg/dL (Negative) Urine Leukocyte Esterase Negative /uL (Negative) Urine RBC <1 /hpf (0 - 4) Urine Microscopic WBC 1 /HPF (0-5) Urine Squamous Epithelial Cells Few /hpf (<5) Urine Bacteria Few /hpf (None Seen) Urine Mucus Few (None Seen) Urine Glucose Normal mg/dL (Normal) Urine Opiates Screen Neg (NEGATIVE) Urine Fentanyl Screen Neg (NEGATIVE) Urine Barbiturates Screen Neg (NEGATIVE) Urine Phencyclidine Screen Neg (NEGATIVE) Urine Amphetamines Screen Neg (NEGATIVE) Urine Benzodiazepines Screen Neg (NEGATIVE) Urine Cocaine Screen Neg (NEGATIVE) Urine Cannabinoids Screen Neg (NEGATIVE) Lactic Acid Level 0.7 mmol/L (0.4-2.0) Ammonia 26 umol/L (11-32) Test 11/06/24 04:16 Prothrombin Time 11.4 sec (9.3-11.8) Prothrombin Time INR 1.08 (0.9-1.15) Phosphorus Level 7.6 mg/dL (2.4-5.1) Total Bilirubin 0.5 mg/dL (0.2-1.0) Direct Bilirubin 0.2 mg/dL (<0.3) Aspartate Amino Transferase (AST) 14 U/L (13-40) Alanine Aminotransferase (ALT) < 9 U/L (7-40) Alkaline Phosphatase 78 U/L (46-116) B-Type Natriuretic Peptide 34.58 pg/mL (0-100) Total Protein 6.6 g/dL (5.7-8.2) Albumin 3.8 g/dL (3.2-4.8) Vitamin D 25-Hydroxy 21.8 ng/mL (30.0-100) Thyroid Stimulating Hormone (TSH) 1.16 uIU/mL (0.55-4.78) Parathyroid Hormone (Intact) 5.3 pg/mL (18.4-80.1) Other Laboratory Tests 11/07/24 05:12 Brief Hx & Hospital Course: Aimee Rizo is a 39-year-old female who presents to ED with chief complaint of left thigh pain associated with swelling and generalized weakness. Patient lives in a [facility] and care due to developmental delay. Denies any other associated symptoms Past medical history: Diabetes, dyslipidemia, morbid obesity, metabolic syndrome, vitamin-D deficiency, stage II CKD, HFpEF, hypothyroidism, seizure disorder probably secondary to hypocalcemia, bipolar syndrome, anxiety disorder, developmental delay and cognitive impairment lives in a [facility] and care, GERD Surgical history: Denies Family history: Noncontributory Social history: Lives in a [facility] care (next of kin caregiver). Denies current tobacco, alcohol and other drug abuse Allergies: Denies Home medication: Brief hospital course: Severe hypocalcemia due to hypoparathyroidism and vitamin-D deficiency symptomatic by left side paresthesia and muscle cramps, requiring IV calcium replenishment, vitamin-D replacement and discontinuation of furosemide. Evaluated PTH which evidence hypoparathyroidism, ordered urine calcium which is pending. Probable cause of primary hypoparathyroidism could be autoimmune, recommended to follow up with delivery lead as outpatient. Due to left lower extremity swelling, completed lower limb venous ultrasound which ruled out DVT. Goals of care were discussed with the patient and caregiver, with decision for full code status. The patient is being discharged in stable condition with instruction to follow up with Endocrinology and Nephrology as outpatient, continue current medications as listed and maintain dietary and lifestyle modifications. Patient hemodynamically stable, asymptomatic, receiving IV calcium pending repeat CMP to evaluate discharge today, in condition to be discharged to board and care. We will be granted if serum calcium is above 7 under optimal medical therapy (discontinue furosemide, indicated vitamin-D and calcium p.o.), gave her advice on healthy lifestyle habits, and follow up with PCP, delivery lead and skiver blockers. Pt is lying on bed General Appearance: Alert, Oriented X3, Cooperative, Mild distress HEENT: Atraumatic, Mucous membranes moist/pink Respiratory: Clear to auscultation, Normal air movement, No added sounds Cardiovascular: Regular rate, Normal S1, Normal S2, No murmurs Abdominal/ : Active bowel sounds, Soft, no distention, no tenderness Extremities: No edema, Normal pulses, No tenderness/swelling Skin: No Significant rash, except past surgical scars Neuro: Normal speech, sensorimotor deficits none Psych/Mental Status: Mental status NL, Mood NL Nurse was there as electrical engineer mep during examination Operations or Procedures Bilateral lower extremity Doppler: No DVT Condition at Discharge: Stable Final Diagnosis/Problems List Hypocalcemia secondary to primary hypoparathyroidism DVT ruled out Heart failure with preserved ejection fraction, no exacerbation Stage II CKD Seizure disorder probably secondary to hypocalcemia Vitamin-D deficiency Diabetes Dyslipidemia Morbid obesity Metabolic syndrome GERD Hypothyroidism Bipolar disorder Discharge Disposition: Assisted Living Facility SNF Discharge Will this Physician continue t: No Discharge Instruct/Medications Diet: Consistent carbohydrate, Cardiac 2g Na,low cholest Activity: No Restrictions, As Tolerated Follow Up/Referral: FU with PCP, skiver blockers and delivery lead Medications: As per EMR Scheduled Atorvastatin Calcium (Atorvastatin Calcium), 1 TAB PO DAILY, (Reported) Calcium Carbonate-Cholecalcife (Calcium 500 +D3 500-600 mg-Unit), 1 TAB PO DAILY Divalproex Sodium (Divalproex Sodium), 1 TAB PO BID, (Reported) Docusate Sodium (Docusate Sodium), 1 PO DAILY, (Reported) Ergocalciferol (Vitamin D 95746 Unit), 50,000 UNIT PO Q7D Famotidine (Famotidine), 1 TAB PO BID, (Reported) Ferrous Sulfate (Ferosul), 1 TAB PO DAILY, (Reported) Hydroxyzine HCl (Hydroxyzine Hydrochloride), 1 TAB PO BID, (Reported) Levetiracetam (Levetiracetam), 1 TAB PO BID, (Reported) Levothyroxine Sodium (Levothyroxine Sodium), 1 TAB PO QAM, (Reported) Quetiapine Fumerate (Quetiapine Fumarate), 1 TAB PO BID, (Reported) Senna (Senna), 2 TAB PO BID, (Reported) Sertraline Hcl (Sertraline Hcl), 1 TAB PO DAILY, (Reported) Spironolactone (Aldactone), 25 MG PO DAILY Trazodone Hcl (Trazodone Hcl), 1 TAB PO QPM Scheduled PRN Zolpidem Tartrate (Zolpidem Tartrate), 2 TAB PO HSPRN PRN, (Reported) Discontinued Medications Cholecalciferol (Vitamin D), 5,000 UNIT OR DAILY Doxycycline Hyclate (Doxycycline Hyclate), 100 MG PO BID Furosemide (Furosemide), 1 TAB PO DAILY, (Reported) Metronidazole (Flagyl), 500 MG PO BID Potassium Bicarbonate-Citric A (Effer-K), 1 TAB PO DAILY, (Reported) Durable Medical Equipment Elastic Bandages & Supports (Medical Compression Stock), UNITS XX, (DME) Discharge Statement: "Patient was advised to return to the ER or call 911 if any headaches, dizziness, shortness of breath, chest pain, abdominal pain, bleeding, fevers, or worsening of medical condition. Patient was counseled about treatment plan, medications, possible side effects, patientverbalized understanding. All questions were answered to the best of my ability. This discharge took greater then 30 minutes in planning, reviewing documentation, counseling the patient, and discussing with other team members." ASSESSMENT ASSESSMENT Assessment Hypocalcemia due to primary hypoparathyroidism Seizure disorder Date of Service: Nov 07, 2024 Billing Provider: SULEIMAN BELTRAN MD Common Visit Codes: 01204-RPD/OBS DISCH DAY >30min ALEXUS PARTIDA RESIDENT Nov 07, 2024 17:26 YVONNE JARVIS RESIDENT Nov 09, 2024 23:18 SULEIMAN BELTRAN MD Nov 10, 2024 22:17
[2024-11-07] MEDS: CALCIUM GLUC 1,000mg/50ml-NS 50 ML IV SCH (18:44)
[2024-11-07] MEDS: CALCIUM GLUC 1,000mg/50ml-NS 50 ML IV ONE (19:57)
[2024-11-08 05:00] VITALS: BP 131/84; PULSE 99; RESP 19; TEMP 98.3; O2SAT 100
[2024-11-08 06:58] LABS: Anion Gap 10 (5-15); Carbon Dioxide 26 mmol/L (20-31); Chloride 103 mmol/L (98-107); Potassium 4.0 mmol/L (3.5-5.1); Sodium 139 mmol/L (136-145)
[2024-11-08 07:04] LABS: BUN/Creatinine Ratio 16.2 (10.0-20.0); Blood Urea Nitrogen 19 mg/dL (9-23); Glucose 89 mg/dL (74-106); Hematocrit 30.6 % (36.0-46.0); Hemoglobin 10.4 g/dL (12.2-16.2); Mean Corpuscular Hemoglobin 32.2 pg (28.0-32.0); Mean Corpuscular Volume 94.9 fL (80.0-100.0); Nucleated Red Blood Cells % 0.0 %
[2024-11-08 07:11] LABS: Calcium 7.4 mg/dL (8.7-10.4)
[2024-11-08 09:00] VITALS: BP 121/72; PULSE 92; RESP 18; TEMP 97.6; O2SAT 93
[2024-11-08] MEDS ORDERED: SPIR25TA PO (09:20)
[2024-11-08] MEDS ORDERED: ERGO1CAP23 PO (09:20)
[2024-11-08 11:17] VITALS: BP 121/72; PULSE 92; RESP 18; TEMP 97.1; O2SAT 93
[2024-11-08 12:40] VITALS: BP 123/85; PULSE 100; RESP 17; TEMP 97.6; O2SAT 93
--- NOTE | 2024-11-08 19:53 | DVHPNRES ---
Progress Note Date Seen: Nov 08, 2024 Resident Creating Document: ALEXUS PARTIDA RESIDENT Medical Necessity Reason Pt with a Central, PICC or Fol: No Subjective Review of Systems Aimee Rizo is a 39-year-old female who presents to ED with chief complaint of left thigh pain associated with swelling and generalized weakness. Patient lives in a board and care due to developmental delay. Denies any other associated symptoms Past medical history: Diabetes, dyslipidemia, morbid obesity, metabolic syndrome, vitamin-D deficiency, stage II CKD, HFpEF, hypothyroidism, seizure disorder probably secondary to hypocalcemia, bipolar syndrome, anxiety disorder, developmental delay and cognitive impairment lives in a [place] and care, GERD Surgical history: Denies Family history: Noncontributory Social history: Lives in a boarding care (next of kin caregiver). Denies current tobacco, alcohol and other drug abuse Allergies: Denies Home medication: Per EMR Patient seen and examined at bedside. Currently has no left thigh pain. Has no other complaint. Planning discharge to boarding care, organizing transportation with the assistance of social services designee. Objective vital signs Vital Sign Date Time Temp Pulse Resp B/P (MAP) Pulse Ox O2 Delivery O2 Flow Rate FiO2 11/08/24 12:40 97.6 100 17 123/85 (98) 93 97.6 11/08/24 07:30 Room Air* 0 21 Total Intake and Output 11/07/24 11/07/24 11/08/24 15:00 23:00 07:00 Intake Total 1800 ml 900 ml Balance 1800 ml 900 ml Examination Pt is lying on bed General Appearance: Alert, Oriented X3, Cooperative, Mild distress HEENT: Atraumatic, Mucous membranes moist/pink Respiratory: Clear to auscultation, Normal air movement, No added sounds Cardiovascular: Regular rate, Normal S1, Normal S2, No murmurs Abdominal/ : Active bowel sounds, Soft, no distention, no tenderness Extremities: No edema, Normal pulses, No tenderness/swelling, resting tremors, left leg edema improved Skin: No Significant rash, except past surgical scars Neuro: Normal speech, sensorimotor deficits none Psych/Mental Status: Mental status NL, Mood NL Nurse was there as spoilage worker during examination laboratory and microbiology Laboratory Tests 11/08/24 06:08 Test 11/08/24 06:08 Range/Units Serum Glucose 89 74-106 mg/dL Microbiology Date/Time Source Procedure Growth Status 11/06/24 06:16 Blood Blood Culture - Preliminary NO GROWTH AFTER 48 HOURS OF INCUBATION. Resulted Problem List/Assessment/Plan Problem List/Assessment/Plan #Hypocalcemia secondary to primary hypoparathyroidism #Seizure disorder probably secondary to hypocalcemia #Vitamin-D deficiency #Stage II CKD. #Hypokalemia #Hypothyroidism Replenish calcium (IV and PO) and potassium. Indicated vitamin-D (45443 units p.o. weekly) Discontinued furosemide, indicated spironolactone to increase potassium reabsorption Seizure precaution. Patient was on Keppra, continue medication. Would benefit from Neurology consult as outpatient Continue levothyroxine 100 mcg p.o. daily Monitor kidney function. Follow up with Nephrology and Endocrinology as outpatient #Heart failure with preserved ejection fraction, no exacerbation #DVT ruled out Patient currently is not fluid overload. Discontinued furosemide and started spironolactone for diuretic and potassium-sparing effect. Completed lower limb ultrasound which ruled out DVT #Diabetes mellitus #Hyperlipidemia #Metabolic syndrome Atorvastatin 40 mg p.o. daily Insulin sliding scale #Anxiety disorder #Bipolar disorder #Developmental delay Continue home medication (sertraline and quetiapine) Planning discharge to previous living arrangement (board and Care). Food Concession Manager on board #GERD Famotidine 20 mg b.i.d. #Morbid Obesity Counseled on healthy lifestyle modifications for more than 15 minutes. Goals of care discussed with the patient for more than 27 minutes: Full code status Case discussed with Dr. Gilbert, patient and RN: Patient currently discharge, her calcium today is above 7. Planning discharge to previous living arrangement (boarding care), social services designee on board. Patient will benefit from follow up as outpatient with PCP, Nephrology, Endocrinology and Neurology. Plan discussed with: Patient, Other (RN) My Orders My Orders Orders - ALEXUS PARTIDA Procedure Category Date Status Time Discharge DISCHARGE 11/08/24 Transmitted 07:00 ALEXUS PARTIDA RESIDENT Nov 08, 2024 19:53 YVONNE JARVIS RESIDENT Nov 09, 2024 23:37
== END 2024-11-08 13:49 | disposition home or self-care (01) | DRG 424 ==
LOC: ER 13:04 → EDBD 13:04 → OVERFLOW 22:09 → EAST 11-06 02:01
PROVIDERS: ADMIT Student in an Organized Health Care Education/Training Program; ATTEND Student in an Organized Health Care Education/Training Program
DX: E20.9 Hypoparathyroidism, unspecified (principal); I13.0 Hypertensive heart and chronic kidney disease with heart failure and stage 1 through stage 4 chronic kidney disease, or unspecified chronic kidney disease; I50.32 Chronic diastolic (congestive) heart failure; E11.22 Type 2 diabetes mellitus with diabetic chronic kidney disease; E03.9 Hypothyroidism, unspecified; K21.9 Gastro-esophageal reflux disease without esophagitis; E87.6 Hypokalemia; E78.5 Hyperlipidemia, unspecified; N18.2 Chronic kidney disease, stage 2 (mild); F41.9 Anxiety disorder, unspecified; G47.00 Insomnia, unspecified; E66.01 Morbid (severe) obesity due to excess calories; G40.909 Epilepsy, unspecified, not intractable, without status epilepticus; F31.9 Bipolar disorder, unspecified; E88.810 Metabolic syndrome; R62.50 Unspecified lack of expected normal physiological development in childhood; Z90.49 Acquired absence of other specified parts of digestive tract; Z79.899 Other long term (current) drug therapy; Z68.37 Body mass index [BMI] 37.0-37.9, adult
CPT/HCPCS: 36415; 80048; 80053; 80076; 80307; 81001; 82140; 82306; 82310; 82962; 83605; 83880; 83970; 84100; 84443; 85025; 85610; 87040; 93970; G0378; J1815

== ENCOUNTER 2024-11-13 00:55 | Emergency (ER) | payer MEDICAID ==
[~2024-11-13] VITALS: Ht 154.9 cm; Wt 85.0 kg
[~2024-11-13 00:55] MED LIST changes: -CHOL500021 OR; -DOXY100T2 PO; +ERGO1CAP23 PO; -FURO40TA4 PO; -METR-344 PO; -POTA20TA24 PO; +SPIR25TA PO
--- NOTE | 2024-11-13 02:07 | ED.PDOC ---
HPI Comments 39-year-old obese female is brought in by ambulance for chief complaint of chest pain. Onset of symptoms, last night. Pain is burning in quality History of her frequent ED visits and mental health disorder. Denies any further acute symptoms at this time. Chief Complaint: Chest Pain Time Seen by MD: 01:20 Reviewed Notes: Nurses Notes, Medications, Allergies Allergies: Coded Allergies: NO KNOWN ALLERGIES (Unverified , 08/23/24) Home Meds Active Scripts Potassium Chloride (Potassium Chloride ER) 10 Meq Tab, 10 MEQ PO BID for 30 Days, #60 TAB Prov:MANGO GOODMAN MD 11/13/24 Ergocalciferol (VITAMIN D 42063 UNIT) 50,000 [place], [address] UNIT PO Q7D for 30 Days, #10 CAP Prov:YVONNE JARVIS RESIDENT 11/08/24 Spironolactone (Aldactone) 25 Mg Tab, 25 MG PO DAILY for 30 Days, #30 TAB Prov:YVONNE JARVIS RESIDENT 11/08/24 Trazodone Hcl (Trazodone Hcl) 150 Mg Tab, 1 TAB PO QPM for 60 Days, #60 TAB 1 Refill Prov:MANGO GOODMAN MD 11/02/24 Calcium Carbonate-Cholecalcife (Calcium 500 +D3 500-600 mg-Unit) 1 Tab Tab, 1 TAB PO DAILY for 14 Days, #14 TAB Prov:TETE PEDRO RESIDENT 10/22/24 Elastic Bandages & Supports (MEDICAL COMPRESSION STOCK) Stocking Mis, UNITS XX, #2 Prov:AGUSTÍN CARMONA MD 08/24/24 Reported Medications Zolpidem Tartrate (Zolpidem Tartrate) 5 Mg Tab, 2 TAB PO HSPRN PRN 10/03/24 Sertraline Hcl (Sertraline Hcl) 25 Mg Tab, 1 TAB PO DAILY 10/03/24 Ferrous Sulfate (Ferosul) 325 Mg Tab, 1 TAB PO DAILY 10/03/24 Divalproex Sodium (Divalproex Sodium) 500 Mg Tab, 1 TAB PO BID 10/03/24 Quetiapine Fumerate (QUETIAPINE FUMARATE) 400 Mg Tab, 1 TAB PO BID 10/03/24 Hydroxyzine HCl (Hydroxyzine Hydrochloride) 50 Mg Tab, 1 TAB PO BID 10/03/24 Famotidine (Famotidine) 20 Mg Tab, 1 TAB PO BID 10/03/24 Docusate Sodium (Docusate Sodium) 250 Mg Cap, 1 PO DAILY 10/03/24 Senna (Senna) 8.6 Mg Tab, 2 TAB PO BID 10/03/24 Atorvastatin Calcium (ATORVASTATIN CALCIUM) 40 Mg Tab, 1 TAB PO DAILY 10/03/24 Levothyroxine Sodium (Levothyroxine Sodium) 100 Mcg Tab, 1 TAB PO QAM 10/03/24 Levetiracetam (Levetiracetam) 500 Mg Tab, 1 TAB PO BID 10/03/24 Discontinued Reported Medications Furosemide (Furosemide) 40 Mg Tab, 1 TAB PO DAILY 10/03/24 Potassium Bicarbonate-Citric A (Effer-K) 20 Meq Tab, 1 TAB PO DAILY 10/03/24 Discontinued Scripts Metronidazole (Flagyl) 500 Mg Tab, 500 MG PO BID for 14 Days, #28 TAB Prov:EMILIANA PRO RESIDENT 10/04/24 Doxycycline Hyclate (Doxycycline Hyclate) 100 Mg Tab, 100 MG PO BID for 14 Days, #28 TAB Prov:EMILIANA PRO RESIDENT 10/04/24 Cholecalciferol (VITAMIN D) 5,000 Unit Tab, 5000 UNIT OR DAILY for 30 Days, #30 TAB 0 Refills Prov:ROBERT REIS RESIDENT 08/30/24 Mode of Arrival: Ambulatory Past Medical History PAST MEDICAL HISTORY: Anxiety, CHF, CKF, DM, High Lipids, HTN, Schizophrenia, Seizures, Thyroid Surgical History: Cholecystectomy HAIR CUTTER History: Denies all HAIR CUTTER Hx Family History Family History: Unknown Social History Smoker: Non-Smoker Alcohol: Denies ETOH Use Drugs: Denies Drug Use Lives In: Assisted Care All Other Systems: Reviewed and Negative (as per HPI) Physical Exam General Appearance: No Apparent Distress, Obese HEENT: Normal ENT Inspection, Pharynx Normal, TMs Normal Neck: Full Range of Motion, Non-Tender, Normal, Normal Inspection Respiratory: Chest Non-Tender, Lungs Clear, No Accessory Muscle Use, No Respiratory Distress, Normal Breath Sounds Cardiovascular: No Edema, No JVD, No Murmur, No Gallop, Normal Peripheral Pulses, Regular Rate/Rhythm Breast Exam: Deferred Gastrointestinal: No Organomegaly, Non Tender, No Pulsatile Mass, Normal Bowel Sounds, Soft Genitalia: Deferred Pelvic: Deferred Rectal: Deferred Extremities: No calf tenderness, Normal capillary refill, Normal inspection, Normal range of motion, Non-tender, No pedal edema Musculoskeletal : Apperance: Normal Neurologic: Alert, crop duster II-XII nml as Tested, No Motor Deficits, Normal Mood, No Sensory Deficits, Other (anxious affect ) Cerebellar Function: Normal Reflexes: Normal Skin: Dry, Normal Color, Warm Lymphatic: No Adenopathy Was a procedure done? Was a procedure done?: No CP Differential Dx Differential Diagnosis: N/A Differential Diagnosis: N/A Differential Diagnosis: Angina, Chest Wall Pain, Costochondritis, Esophageal reflux/spasm, Gastritis, Myocardial Infarction, Pericarditis, Pneumonia, Pulmonary Embolus X-Ray, Labs, Meds, VS Vital Signs Date Time Temp Pulse Resp B/P (MAP) Pulse Ox O2 Delivery O2 Flow Rate FiO2 11/13/24 00:55 97.6 107 18 101/80 98 97.6 Lab Test 11/13/24 02:49 11/13/24 01:55 Range/Units Troponin I High Sensitivity 4 3 L </=34 ng/L White Blood Count 5.9 4.4-10.8 10^3/uL Red Blood Count 3.14 L 4.0-5.20 10^6/uL Hemoglobin 10.3 L 12.2-16.2 g/dL Hematocrit 29.5 L 36.0-46.0 % Mean Corpuscular Volume 93.9 80.0-100.0 fL Mean Corpuscular Hemoglobin 32.7 H 28.0-32.0 pg Mean Corpuscular Hemoglobin Concent 34.8 32.0-36.0 g/dL Red Cell Distribution Width 14.2 11.8-14.3 % Platelet Count 143 140-450 10^3/uL Mean Platelet Volume 10.2 6.9-10.8 fL Neutrophils (%) (Auto) 54.8 37.0-80.0 % Lymphocytes (%) (Auto) 33.6 10.0-50.0 % Monocytes (%) (Auto) 9.1 0.0-12.0 % Eosinophils (%) (Auto) 2.2 0.0-7.0 % Basophils (%) (Auto) 0.3 0.0-2.0 % Neutrophils # (Auto) 3.2 1.6-8.6 10 ^3/uL Lymphocytes # (Auto) 2.0 0.4-5.4 10 ^3/uL Monocytes # (Auto) 0.5 0-1.3 10 ^3/uL Eosinophils # (Auto) 0.1 0-0.8 10 ^3/uL Basophils # (Auto) 0 0-0.2 10 ^3/uL Nucleated Red Blood Cells 0.1 % Sodium Level 137 136-145 mmol/L Potassium Level 3.1 L 3.5-5.1 mmol/L Chloride Level 102 98-107 mmol/L Carbon Dioxide Level 23 20-31 mmol/L Anion Gap 12 5-15 Blood Urea Nitrogen 14 9-23 mg/dL Creatinine 1.13 H 0.550-1.02 mg/dL Glomerular Filtration Rate Calc 63 >90 mL/min BUN/Creatinine Ratio 12.4 10.0-20.0 Serum Glucose 110 H 74-106 mg/dL Calcium Level 6.3 L 8.7-10.4 mg/dL Total Bilirubin 0.2 0.2-1.0 mg/dL Aspartate Amino Transferase (AST) 11 L 13-40 U/L Alanine Aminotransferase (ALT) < 9 7-40 U/L Alkaline Phosphatase 123 H 46-116 U/L Total Protein 7.0 5.7-8.2 g/dL Albumin 4.2 3.2-4.8 g/dL Time of 1ST Reevaluation: 01:50 Reevaluation 1ST: Unchanged Patient Education/Counseling: Diagnosis, Treatment Family Education/Counseling: No Family Present SEPSIS Sepsis Screen Date sepsis recognized/suspect: Nov 13, 2024 Time Sepsis recognized/suspect: 54 Recent Procedure: No On Antibiotic Therapy: No Respiratory Rate >20: No Heart Rate >90: No Temp<36 C (96.8 F) or >38.3 C: No SBP <90 or MAP <65 mmHG: No New Acute Mental Status Change: No Is the patient on CPAP, BIPAP,: No Physician Orders Electrocardigram (11/13/24 01:22) Troponin-I Hs (11/13/24 04:22) Vital Signs Date Time Temp Pulse Resp B/P (MAP) Pulse Ox O2 Delivery O2 Flow Rate FiO2 11/13/24 00:55 97.6 107 18 101/80 98 97.6 Laboratory Tests Test 11/13/24 01:55 White Blood Count 5.9 10^3/uL (4.4-10.8) Departure 1 Departure Time of Disposition: 03:40 Impression: Primary Impression: Acute chest pain Additional Impression: Hypokalemia Disposition: 01 HOME / SELF CARE / HOMELESS Condition: Stable e-Prescriptions Potassium Chloride (Potassium Chloride ER) 10 Meq Tab 10 MEQ PO BID for 30 Days, #60 TAB Prov: MANGO GOODMAN MD 11/13/24 Discharged With: Self Critical Care Note Critical Care Time?: No Stability Stability form required: No Heart Score Heart Score: Heart Score Response (Comments) Value History N/A 0 EKG N/A 0 Age N/A 0 Risk Factors N/A 0 Troponin N/A 0 Total 0 I personally scribed for MANGO GOODMAN MD ([email or web address]) on 11/13/24 at 02:07. Electronically submitted by David Sagastume ([email or web address]). MANGO GOODMAN MD Nov 13, 2024 02:07
[2024-11-13 02:57] LABS: Hematocrit 29.5 % (36.0-46.0); Hemoglobin 10.3 g/dL (12.2-16.2); Mean Corpuscular Hemoglobin 32.7 pg (28.0-32.0); Mean Corpuscular Volume 93.9 fL (80.0-100.0); Nucleated Red Blood Cells % 0.1 %
[2024-11-13 03:04] LABS: Albumin 4.2 g/dL (3.2-4.8); Anion Gap 12 (5-15); BUN/Creatinine Ratio 12.4 (10.0-20.0); Blood Urea Nitrogen 14 mg/dL (9-23); Carbon Dioxide 23 mmol/L (20-31); Chloride 102 mmol/L (98-107); Sodium 137 mmol/L (136-145); Total Protein 7.0 g/dL (5.7-8.2)
[2024-11-13 03:27] LABS: Alanine Aminotransferase < 9 U/L (7-40); Alkaline Phosphatase 123 U/L (46-116); Bilirubin, Total 0.2 mg/dL (0.2-1.0); Calcium 6.3 mg/dL (8.7-10.4); Glucose 110 mg/dL (74-106); Potassium 3.1 mmol/L (3.5-5.1)
[2024-11-13] MEDS ORDERED: POTA-228 PO (03:40)
[2024-11-13] MEDS: POTASSIUM CHL 20 Meq TABLET PO ONE (05:18)
--- NOTE | 2024-11-13 07:10 | ECG ---
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
[2024-11-13 09:37] VITALS: BP 137/91; PULSE 72; RESP 16; TEMP 97.9; O2SAT 94
== END 2024-11-13 09:41 | disposition home or self-care (01) ==
LOC: ER 00:55 → EDBD 00:55 → ER 09:41
DX: R07.89 Other chest pain (principal); E87.6 Hypokalemia; I11.0 Hypertensive heart disease with heart failure; I50.9 Heart failure, unspecified; E11.9 Type 2 diabetes mellitus without complications; Z79.899 Other long term (current) drug therapy; Z90.49 Acquired absence of other specified parts of digestive tract
CPT/HCPCS: 36415; 80053; 84484; 85025; 93005

== ENCOUNTER 2024-11-15 20:47 | Emergency (ER) | payer MEDICAID ==
[~2024-11-15] VITALS: Ht 162.6 cm; Wt 90.1 kg
[~2024-11-15 20:47] MED LIST changes: +POTA-228 PO
--- NOTE | 2024-11-15 23:20 | ED.PDOC ---
HPI Comments Discharge diagnosis from 11/07/24 Hypocalcemia secondary to primary hypoparathyroidism DVT ruled out Heart failure with preserved ejection fraction, no exacerbation Stage II CKD Seizure disorder probably secondary to hypocalcemia Vitamin-D deficiency Diabetes Dyslipidemia Morbid obesity Metabolic syndrome GERD Hypothyroidism Bipolar disorder HPI: 39 year old female presents to the emergency department via EMS with a chief complaint of hypertension onset today (11/15/24). Patient states she was not feeling well, checked BP, was over 180 systolic, called 911. Patient is cur rently living in a boarding care facility due to mental illness. Denies fever, chills, nausea, vomiting, abdominal pain, chest pain, shortness of breath, dizziness. No other symptoms or modifying factors present at this time. Initial Vitals BP: 116/72 HR: 98 RR: 18 O2: 99% Temp: 98.7 F Past Medical History: anxiety, DM, HLD, HTN, schizophrenia, seizure, thyroid disease, CHF, CKF. Past Surgical History: cholecystectomy Social History: Denies ETOH, smoking, and drug use. Medications: Atorvastatin, hydroxyzine Allergies: NKDA HPI: Poor Historian. REVIEW OF SYSTEMS: CONSTITUTIONAL: Denies acute: fever, diaphoresis, chills, generalized weakness. HEAD: Denies acute: headache, photophobia Eyes: Denies acute: Double vision, vision loss, eye pain, eye discharge. EARS: Denies acute: tinnitus, hearing loss, ear discharge, ear pain, THROAT: Denies acute: sore throat, swelling, difficulty swallowing , pain with swallowing, change in voice. NECK: Denies acute: neck pain, neck swelling, stiff neck. HEART: Denies acute : chest pain, palpitations, LUNGS: Denies acute: SOB, wheezing, cough, hemoptysis ABDOMEN: Denies acute: abdominal pain, Nausea, Vomiting, diarrhea, melena , hematemesis, hematochezia SKIN: Denies acute: rash, redness, lesions, itchiness. EXTREMITIES: Denies acute: calf pain, numbness, tingling, weakness, denies pain in extremity. Denies acute: Low back pain. Neuro: Denies acute: focal neurological deficit, motor or sensory focal neurological deficit, tremors, seizure like activity, confusion, dizziness, change in mental status, loss of bowel or bladder function, cauda equina like symptoms. : Denies acute: dysuria, hematuria, flank pain, increase in urinary frequency. PSYCH: Denies acute: hallucination, suicidal ideation, homicidal ideation. FEMALE: Denies acute: abnormal vaginal bleeding, foul odor, unusual discharge. PHYSICAL EXAM: General: ---no-----acute distress, awake and alert. Head: normocephalic, atraumatic. Neck: supple, trachea is midline, no swelling. Throat: Normal phonation. Eyes:, no erythema, no purulent discharge, no proptosis, no icterus. Heart: regular rate, regular rhythm, no significant murmur appreciated. Lungs: no apparent respiratory distress, Able to speak in full sentences. No wheezing, no rhonchi, no crackles. No stridors Clear to auscultation bilaterally. Abdomen: non tender to palpation, non distended, soft, no guarding, no rebound, + bowel sounds. Neuro: Awake, Alert, oriented to name, self, situation, follows commands GCS=15. Speech is normal. Skin: no petechia, no purpura, no cyanosis, non-pale, not jaundice. Lower extremities: --no - Pitting edema no deformity, no focal swelling, no calf TTP. Makes eye contact. moves all four extremities. Face: no apparent facial droop. Ambulating in the ED independently. ED COURSE: DISCLAIMER: This medical document was created using an electronic medical record system with voice recognition software and computerized dictation system. Although this document has been carefully reviewed, there might still be some phonetic and typographical errors. Occasional wrong-word or "sound-alike" substitutions may have occurred due to the inherent limitations of voice recognition software. These areas are purely typographical due to imperfections of the software programs and do not reflect any compromise in the patient's medical care. Please read the chart carefully and recognize, using context, where these substitutions have occurred. Chief Complaint: Headache Time Seen by MD: 23:10 Reviewed Notes: Medications, Allergies Allergies: Coded Allergies: NO KNOWN ALLERGIES (Unverified , 08/23/24) Home Meds Active Scripts Potassium Chloride (Potassium Chloride ER) 10 Meq Tab, 10 MEQ PO BID for 30 Days, #60 TAB Prov:MANGO GOODMAN MD 11/13/24 Ergocalciferol (VITAMIN D 80073 UNIT) 50,000 [place], [address] UNIT PO Q7D for 30 Days, #10 CAP Prov:YVONNE JARVIS RESIDENT 11/08/24 Spironolactone (Aldactone) 25 Mg Tab, 25 MG PO DAILY for 30 Days, #30 TAB Prov:YVONNE JARVIS RESIDENT 11/08/24 Trazodone Hcl (Trazodone Hcl) 150 Mg Tab, 1 TAB PO QPM for 60 Days, #60 TAB 1 Refill Prov:MANGO GOODMAN MD 11/02/24 Calcium Carbonate-Cholecalcife (Calcium 500 +D3 500-600 mg-Unit) 1 Tab Tab, 1 TAB PO DAILY for 14 Days, #14 TAB Prov:TETE PEDRO RESIDENT 10/22/24 Elastic Bandages & Supports (MEDICAL COMPRESSION STOCK) Stocking Mis, UNITS XX, #2 Prov:AGUSTÍN CARMONA MD 08/24/24 Reported Medications Zolpidem Tartrate (Zolpidem Tartrate) 5 Mg Tab, 2 TAB PO HSPRN PRN 10/03/24 Sertraline Hcl (Sertraline Hcl) 25 Mg Tab, 1 TAB PO DAILY 10/03/24 Ferrous Sulfate (Ferosul) 325 Mg Tab, 1 TAB PO DAILY 10/03/24 Divalproex Sodium (Divalproex Sodium) 500 Mg Tab, 1 TAB PO BID 10/03/24 Quetiapine Fumerate (QUETIAPINE FUMARATE) 400 Mg Tab, 1 TAB PO BID 10/03/24 Hydroxyzine HCl (Hydroxyzine Hydrochloride) 50 Mg Tab, 1 TAB PO BID 10/03/24 Famotidine (Famotidine) 20 Mg Tab, 1 TAB PO BID 10/03/24 Docusate Sodium (Docusate Sodium) 250 Mg Cap, 1 PO DAILY 10/03/24 Senna (Senna) 8.6 Mg Tab, 2 TAB PO BID 10/03/24 Atorvastatin Calcium (ATORVASTATIN CALCIUM) 40 Mg Tab, 1 TAB PO DAILY 10/03/24 Levothyroxine Sodium (Levothyroxine Sodium) 100 Mcg Tab, 1 TAB PO QAM 10/03/24 Levetiracetam (Levetiracetam) 500 Mg Tab, 1 TAB PO BID 10/03/24 Information Source: Patient, Emergency Med Personnel Mode of Arrival: EMS Severity: Moderate Timing: Hours Duration: Since onset Prehospital treatment: None Onset: At Rest Cardiac Risk Factors: HTN PE Risk Factors: None History of: None Modifying Factors: Nothing Past Medical History PAST MEDICAL HISTORY: Anxiety, CHF, CKF, DM, High Lipids, HTN, Schizophrenia, Seizures, Thyroid Surgical History: Cholecystectomy 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 Was a procedure done?: No CP Differential Dx Differential Diagnosis: N/A Differential Diagnosis: Other (DDX include renal disease, thyroid disease, electrolyte abnormality, increased salt intake, medications non-compliance, undiagnosed HTN, Hypertensive crisis, hypertensive urgency., drug toxicity.) X-Ray, Labs, Meds, VS Vital Signs Date Time Temp Pulse Resp B/P (MAP) Pulse Ox O2 Delivery O2 Flow Rate FiO2 11/16/24 02:07 97.8 104 20 98 97.8 11/16/24 02:07 104 20 98 11/15/24 23:27 127/70 (89) 11/15/24 21:05 98.7 98 18 116/72 99 98.7 Lab Test 11/16/24 00:56 11/15/24 23:54 Range/Units Troponin I High Sensitivity 3 L 4 </=34 ng/L White Blood Count 9.1 # 4.4-10.8 10^3/uL Red Blood Count 3.58 L 4.0-5.20 10^6/uL Hemoglobin 11.7 L 12.2-16.2 g/dL Hematocrit 33.7 #L 36.0-46.0 % Mean Corpuscular Volume 94.3 80.0-100.0 fL Mean Corpuscular Hemoglobin 32.8 H 28.0-32.0 pg Mean Corpuscular Hemoglobin Concent 34.8 32.0-36.0 g/dL Red Cell Distribution Width 14.5 H 11.8-14.3 % Platelet Count 145 140-450 10^3/uL Mean Platelet Volume 9.9 6.9-10.8 fL Neutrophils (%) (Auto) 71.2 37.0-80.0 % Lymphocytes (%) (Auto) 20.5 10.0-50.0 % Monocytes (%) (Auto) 6.9 0.0-12.0 % Eosinophils (%) (Auto) 1.1 0.0-7.0 % Basophils (%) (Auto) 0.3 0.0-2.0 % Neutrophils # (Auto) 6.5 1.6-8.6 10 ^3/uL Lymphocytes # (Auto) 1.9 0.4-5.4 10 ^3/uL Monocytes # (Auto) 0.6 0-1.3 10 ^3/uL Eosinophils # (Auto) 0.1 0-0.8 10 ^3/uL Basophils # (Auto) 0 0-0.2 10 ^3/uL Nucleated Red Blood Cells 0.1 % Sodium Level 139 136-145 mmol/L Potassium Level 3.5 3.5-5.1 mmol/L Chloride Level 99 98-107 mmol/L Carbon Dioxide Level 29 20-31 mmol/L Anion Gap 11 5-15 Blood Urea Nitrogen 17 9-23 mg/dL Creatinine 1.45 H 0.550-1.02 mg/dL Glomerular Filtration Rate Calc 46 >90 mL/min BUN/Creatinine Ratio 11.7 10.0-20.0 Serum Glucose 95 74-106 mg/dL Calcium Level 6.7 L 8.7-10.4 mg/dL Total Bilirubin 0.2 0.2-1.0 mg/dL Aspartate Amino Transferase (AST) 14 13-40 U/L Alanine Aminotransferase (ALT) < 9 7-40 U/L Alkaline Phosphatase 114 46-116 U/L Total Protein 7.9 5.7-8.2 g/dL Albumin 4.8 3.2-4.8 g/dL Time of 1ST Reevaluation: 23:40 Reevaluation 1ST: Unchanged Patient Education/Counseling: Diagnosis, Treatment Family Education/Counseling: No Family Present Comments MDM: patient presented with the above HPI.---hypertension evaluation---workup was initiated. patient was found with the above mentioned diagnosis. the following medications were ordered: please refer to order lists of meds and tests obtained by myself Dr. Cronin. Patient ED course and VS have been stabilized. Patient has been reassessed in the ED and remained in a stable condition. Pertinent incidental findings were discussed with the patient and/or family. Patient/family voices understanding and is agreeable with plan. Patient has been observed in the ED adequate length of time to insure improvement/stability. Escalation of care considered: Consideration of escalation to observation or admission Patient's blood pressure improved without any interventions here in the ED. Patient was DISCHARGED home in a stable condition. All the reports of any imaging studies that were ordered by myself were reviewed by myself. Departure 1 Departure Time of Disposition: 00:57 Impression: Primary Impression: Hypertension Disposition: 01 HOME / SELF CARE / HOMELESS Condition: Stable Additional Instructions: Additional instructions: Please read all instructions provided in this packet carefully. You MUST follow-up with your primary care/family doctor in 1 to 2 days. If you are unable to see your primary care/family doctor, please return to our emergency room for re-assessment and re-evaluation in 1 to 2 days. Return to the emergency room here in our facility or to the nearest ER [facility] if your symptoms change or worsen. CONSULTATIONS: you MUST Follow-up for consultation as soon as possible with: neurology and cardiology in 1-2 days. Please call for appointment. You MUST call the consultants office yourself to make an appointment. You may need to arrange that through your insurance and/or your primary/family doctor. If you are unable to see the sediment remediation consultant in 1 to 2 days, you must return to our emergency room (or any other ER of your choice) for re-assessment and re- evaluation. Adequate fluid hydration. Although you have been discharged from the Emergency Department, this does not mean that you have a "clean bill of health". No definitive diagnosis for your symptoms has been made today. It is possible that you are in the process of developing a serious illness. This is why you must return to the ED without fail if any new or worsening symptoms develop. Monitoring blood pressure at home at least 3 times a day. Discharged With: Self Critical Care Note Critical Care Time?: No I personally scribed for JAMES CRONIN DO ([email or web address]) on 11/15/24 at 23:20. Electronically submitted by Gail Jack ([email or web address]). JAMES CRONIN DO Nov 15, 2024 23:20
[2024-11-15 23:27] VITALS: BP 127/70
[2024-11-16 00:30] LABS: Hematocrit 33.7 % (36.0-46.0); Hemoglobin 11.7 g/dL (12.2-16.2); Mean Corpuscular Hemoglobin 32.8 pg (28.0-32.0); Mean Corpuscular Volume 94.3 fL (80.0-100.0); Nucleated Red Blood Cells % 0.1 %
[2024-11-16 00:47] LABS: Albumin 4.8 g/dL (3.2-4.8); Alkaline Phosphatase 114 U/L (46-116); Anion Gap 11 (5-15); BUN/Creatinine Ratio 11.7 (10.0-20.0); Blood Urea Nitrogen 17 mg/dL (9-23); Carbon Dioxide 29 mmol/L (20-31); Chloride 99 mmol/L (98-107); Glucose 95 mg/dL (74-106); Potassium 3.5 mmol/L (3.5-5.1); Sodium 139 mmol/L (136-145); Total Protein 7.9 g/dL (5.7-8.2)
[2024-11-16 00:55] LABS: Alanine Aminotransferase < 9 U/L (7-40); Bilirubin, Total 0.2 mg/dL (0.2-1.0); Calcium 6.7 mg/dL (8.7-10.4)
[2024-11-16 02:07] VITALS: PULSE 104; RESP 20; TEMP 97.8; O2SAT 98
== END 2024-11-16 02:15 | disposition home or self-care (01) ==
LOC: EDBD 20:47 → ER 20:47
DX: I13.0 Hypertensive heart and chronic kidney disease with heart failure and stage 1 through stage 4 chronic kidney disease, or unspecified chronic kidney disease (principal); E11.22 Type 2 diabetes mellitus with diabetic chronic kidney disease; N18.9 Chronic kidney disease, unspecified; I50.9 Heart failure, unspecified; F41.9 Anxiety disorder, unspecified; E78.5 Hyperlipidemia, unspecified; E66.01 Morbid (severe) obesity due to excess calories; F20.9 Schizophrenia, unspecified; Z79.899 Other long term (current) drug therapy; Z90.49 Acquired absence of other specified parts of digestive tract; Z79.890 Hormone replacement therapy; Z68.34 Body mass index [BMI] 34.0-34.9, adult
CPT/HCPCS: 36415; 80053; 84484; 85025

== ENCOUNTER 2024-11-25 18:12 | Inpatient (IN) | payer MEDICAID ==
[~2024-11-25] VITALS: Ht 160 cm; Wt 95.0 kg
--- NOTE | 2024-11-25 18:47 | ED.PDOC ---
History of Present Illness HPI Comments 39-year-old female who came to ER via EMS for tremors. Per EMS, patient picked up at a [facility] and care facility, has a history of hypertension, anxiety, schizophrenia, bipolar and seizures. Caregivers on scene states that patient always has tremors. However patient woke up this afternoon, complaining of faci al numbness and twitching, something which is new to the patient. No unilateral weakness or numbness were noted. No slurring of speech. On scene, patient was very anxious REVIEW OF SYSTEMS: General: No fever, no chills, or fatigue HEENT: No sore throat, no earache, no congestion, no neck pain. Cardiac: No chest pain. No palpitations. Lungs: No shortness of breath, no cough. GI: No nausea, no vomiting, no diarrhea, no constipation, no abdominal pain : No dysuria, frequency, or urgency. No hematuria. Musculoskeletal: No joint pain , no joint swelling, no extremity edema. Skin: No rash, no itching. Neuro: No headache, no dizziness, no weakness, (+) facial numbness, twitching. EXAM: General: Awake, alert and oriented. No acute distress. Skin: Skin in warm, dry and intact. Appropriate color for ethnicity. HEENT: The head is normocephalic and atraumatic. Conjunctivae are clear without exudates or hemorrhage. Sclera is non-icteric. EOM are intact. No signs of nystagmus. Eyelids are normal in appearance without swelling or lesions. Oral mucosa is pink and moist Neck: The neck is supple with normal range of motion. No JVD. Cardiac: Heart rate and rhythm are normal. No murmurs, gallops, or rubs are auscultated. Respiratory: No signs of respiratory distress. Lung sounds are clear in all lobes bilaterally without rales, rhonchi, or wheezes. Abdominal: Abdomen is soft, non-tender without distention. Bowel sounds are present and normoactive in all four quadrants. Extremities: Upper and lower extremities are atraumatic in appearance without deformity or edema. Neurological: The patient is awake, alert and oriented to person, place, coarse tremor of head, upper extremities and lower extremities noted. Psychiatric: Appropriate mood and affect. Good judgement and insight Chief Complaint: Tremors Time Seen by MD: 18:47 Reviewed Notes: Nurses Notes Allergies: Coded Allergies: NO KNOWN ALLERGIES (Unverified , 08/23/24) Home Meds Active Scripts Potassium Chloride (Potassium Chloride ER) 10 Meq Tab, 10 MEQ PO BID for 30 Days, #60 TAB Prov:MANGO GOODMAN MD 11/13/24 Ergocalciferol (VITAMIN D 39556 UNIT) 50,[address] [place], [address] UNIT PO Q7D for 30 Days, #10 CAP Prov:YVONNE JARVIS RESIDENT 11/08/24 Spironolactone (Aldactone) 25 Mg Tab, 25 MG PO DAILY for 30 Days, #30 TAB Prov:YVONNE JARVIS RESIDENT 11/08/24 Trazodone Hcl (Trazodone Hcl) 150 Mg Tab, 1 TAB PO QPM for 60 Days, #60 TAB 1 Refill Prov:MANGO GOODMAN MD 11/02/24 Calcium Carbonate-Cholecalcife (Calcium 500 +D3 500-600 mg-Unit) 1 Tab Tab, 1 TAB PO DAILY for 14 Days, #14 TAB Prov:TETE PEDRO RESIDENT 10/22/24 Elastic Bandages & Supports (MEDICAL COMPRESSION STOCK) Stocking Mis, UNITS XX, #2 Prov:AGUSTÍN CARMONA MD 08/24/24 Reported Medications Zolpidem Tartrate (Zolpidem Tartrate) 5 Mg Tab, 2 TAB PO HSPRN PRN 10/03/24 Sertraline Hcl (Sertraline Hcl) 25 Mg Tab, 1 TAB PO DAILY 10/03/24 Ferrous Sulfate (Ferosul) 325 Mg Tab, 1 TAB PO DAILY 10/03/24 Divalproex Sodium (Divalproex Sodium) 500 Mg Tab, 1 TAB PO BID 10/03/24 Quetiapine Fumerate (QUETIAPINE FUMARATE) 400 Mg Tab, 1 TAB PO BID 10/03/24 Hydroxyzine HCl (Hydroxyzine Hydrochloride) 50 Mg Tab, 1 TAB PO BID 10/03/24 Famotidine (Famotidine) 20 Mg Tab, 1 TAB PO BID 10/03/24 Docusate Sodium (Docusate Sodium) 250 Mg Cap, 1 PO DAILY 10/03/24 Senna (Senna) 8.6 Mg Tab, 2 TAB PO BID 10/03/24 Atorvastatin Calcium (ATORVASTATIN CALCIUM) 40 Mg Tab, 1 TAB PO DAILY 10/03/24 Levothyroxine Sodium (Levothyroxine Sodium) 100 Mcg Tab, 1 TAB PO QAM 10/03/24 Levetiracetam (Levetiracetam) 500 Mg Tab, 1 TAB PO BID 10/03/24 Information Source: Patient, Emergency Med Personnel Mode of Arrival: EMS Past Medical History PAST MEDICAL HISTORY: Anxiety, CHF, CKF, DM, High Lipids, HTN, Schizophrenia, Seizures, Thyroid Past Medical History (Other): Bipolar disorder Surgical History: Cholecystectomy SACK SORTER History: Denies all SACK SORTER Hx Family History Family History: Reviewed,noncontributory to illness Social History Smoker: Non-Smoker Alcohol: Denies ETOH Use Drugs: Denies Drug Use Lives In: Assisted Care Was a procedure done? Was a procedure done?: No Differential Dx Considerations may include: Anemia, electrolyte imbalance, seizures,CVA, TIA, tremors, other X-Ray, Labs, Meds, VS Vital Signs Date Time Temp Pulse Resp B/P (MAP) Pulse Ox O2 Delivery O2 Flow Rate FiO2 11/25/24 21:01 98 130/53 11/25/24 19:58 98.1 114 20 131/85 (100) 94 98.1 11/25/24 19:58 116 20 94 Room Air* 0 21 11/25/24 19:04 97 Room Air* 0 11/25/24 19:00 112 19 97 Room Air* 0 11/25/24 18:56 98.5 123 22 139/92 96 98.5 11/25/24 18:56 98.7 112 18 125/46 (72) 97 98.7 Lab Test 11/25/24 19:09 11/25/24 18:59 Range/Units White Blood Count 8.4 4.4-10.8 10^3/uL Red Blood Count 3.58 L 4.0-5.20 10^6/uL Hemoglobin 11.3 L 12.2-16.2 g/dL Hematocrit 33.7 L 36.0-46.0 % Mean Corpuscular Volume 94.2 80.0-100.0 fL Mean Corpuscular Hemoglobin 31.7 28.0-32.0 pg Mean Corpuscular Hemoglobin Concent 33.7 32.0-36.0 g/dL Red Cell Distribution Width 14.1 11.8-14.3 % Platelet Count 134 L 140-450 10^3/uL Mean Platelet Volume 9.5 6.9-10.8 fL Neutrophils (%) (Auto) 67.3 37.0-80.0 % Lymphocytes (%) (Auto) 23.9 10.0-50.0 % Monocytes (%) (Auto) 7.0 0.0-12.0 % Eosinophils (%) (Auto) 1.5 0.0-7.0 % Basophils (%) (Auto) 0.3 0.0-2.0 % Neutrophils # (Auto) 5.7 1.6-8.6 10 ^3/uL Lymphocytes # (Auto) 2.0 0.4-5.4 10 ^3/uL Monocytes # (Auto) 0.6 0-1.3 10 ^3/uL Eosinophils # (Auto) 0.1 0-0.8 10 ^3/uL Basophils # (Auto) 0 0-0.2 10 ^3/uL Nucleated Red Blood Cells 0.1 % Sodium Level 139 136-145 mmol/L Potassium Level 3.6 3.5-5.1 mmol/L Chloride Level 102 98-107 mmol/L Carbon Dioxide Level 23 20-31 mmol/L Anion Gap 14 5-15 Blood Urea Nitrogen 14 9-23 mg/dL Creatinine 1.28 H 0.550-1.02 mg/dL Glomerular Filtration Rate Calc 54 >90 mL/min BUN/Creatinine Ratio 10.9 10.0-20.0 Serum Glucose 97 74-106 mg/dL Calcium Level 5.7 *L 8.7-10.4 mg/dL Phosphorus Level 6.5 H 2.4-5.1 mg/dL Magnesium Level 1.3 L 1.6-2.6 mg/dL Thyroid Stimulating Hormone (TSH) 2.04 0.55-4.78 uIU/mL POC Glucose 87 70-106 mg/dl Current Medications Medications (Trade) Dose Ordered Sig/Ailyn Route Start Time Stop Time Status Last Admin Diphenhydramine HCl (Benadryl Capsule) 50 mg ONCE ONCE PO 11/25/24 18:45 11/25/24 18:48 DC 11/25/24 19:11 Calcium Gluconate/ Sodium Chloride 50 ml @ 120 mls/hr ONCE ONCE IV 11/25/24 19:45 11/25/24 20:09 DC 11/25/24 19:51 Magnesium Sulfate/ Dextrose 100 ml @ 100 mls/hr ONCE ONCE IV 11/25/24 20:30 11/25/24 21:29 DC 11/25/24 20:40 Sodium Chloride 1,000 ml @ 60 mls/hr [id number] IV 11/25/24 20:30 11/25/24 20:30 Time of 1ST Reevaluation: 18:42 Reevaluation 1ST: Unchanged Patient Education/Counseling: Need For Follow Up Family Education/Counseling: No Family Present SEPSIS Sepsis Screen Physician Orders Head Without Contrast (11/25/24 19:50) Levothyroxine Tablet (Synthroid Tablet) (11/26/24 06:00) Levetiracetam 500 Mg/100ml (Levetiraceta (11/25/24 22:00) Sertraline Hcl (Zoloft) (11/26/24 10:00) Atorvastatin (Lipitor) (11/25/24 22:00) Divalproex Dr Tablet (Depakote "Dr" Tabl (11/25/24 22:00) Calcium Carbonate (Tums) (11/26/24 08:00) Allergies (11/25/24 20:18) Code Status (11/25/24 20:18) Sodium Chloride 0.9% (11/25/24 20:30) Oxygen Per Hour (11/25/24 20:18) Hydrocodone-Acet 5/325mg Tab ([place] 5/32 (11/25/24 20:30) Ondansetron Hcl (Zofran) (11/25/24 20:30) Docusate Sodium Capsule (Colace Capsule) (11/25/24 20:30) Fall Risk Precautions In Place QSHIFT (11/25/24 20:18) Complete Blood Count (11/26/24 04:00) Comprehensive Metabolic Panel (11/26/24 04:00) Cardiac Diet-2gna,Lofat,Lochol (11/26/24 Breakfast) Condition: Serious (11/25/24 20:18) Acetaminophen Tablet (Tylenol Tablet) (11/25/24 20:30) Maintain Bed Rest (11/25/24 20:18) Sequential Compression Device (11/25/24 ) Famotidine Injection (Pepcid Injection) (11/26/24 10:00) Metoprolol Tartrate Tablet (Lopressor Ta (11/25/24 22:00) Hydralazine Injection (Apresoline Inject (11/25/24 20:45) Admit (11/25/24 21:18) Nitroglycerin Sublingual (Ntrostat Subli (11/25/24 21:30) Morphine Sulfate Injection (11/25/24 21:30) Stat Ekg For Chest Pain (11/25/24 21:18) Notify Md Of Changes From Base (11/25/24 21:18) Paper Pattern Folder For 24 Hours (11/25/24 21:18) Emergency Dysrhythmia Protocol (11/25/24 21:18) Rhythm Strips Once Every Shift (11/25/24 21:18) Oxygen By Nasal Cannula (11/25/24 21:18) Vital Signs Date Time Temp Pulse Resp B/P (MAP) Pulse Ox O2 Delivery O2 Flow Rate FiO2 11/25/24 21:01 98 130/53 11/25/24 19:58 98.1 114 20 131/85 (100) 94 98.1 11/25/24 19:58 116 20 94 Room Air* 0 21 11/25/24 19:04 97 Room Air* 0 21 11/25/24 19:00 112 19 97 Room Air* 0 11/25/24 18:56 98.5 123 22 139/92 96 98.5 11/25/24 18:56 98.7 112 18 125/46 (72) 97 98.7 Laboratory Tests Test 11/25/24 19:09 White Blood Count 8.4 10^3/uL (4.4-10.8) Medications Medications Dose Ordered Sig/Ailyn Route Start Time Stop Time Status Last Admin Dose Admin Calcium Gluconate/ Sodium Chloride 50 ml @ 120 mls/hr ONCE ONCE IV 11/25/24 19:45 11/25/24 20:09 DC 11/25/24 19:51 Diphenhydramine HCl 50 mg ONCE ONCE PO 11/25/24 18:45 11/25/24 18:48 DC 11/25/24 19:11 Magnesium Sulfate/ Dextrose 100 ml @ 100 mls/hr ONCE ONCE IV 11/25/24 20:30 11/25/24 21:29 DC 11/25/24 20:40 Sodium Chloride 1,000 ml @ 60 mls/hr [id number] IV 11/25/24 20:30 11/25/24 20:30 Departure 1 Departure Time of Disposition: 19:36 Impression: Primary Impression: Hypocalcemia Additional Impression: Tremor Disposition: ADMITTED INPATIENT Condition: Serious Comments MDM: Calcium replacement initiated in the ED Patient is stabilized in the ED Patient admitted to hospitalist service for further treatment, evaluation and monitoring. Extensive evaluation was performed in attempt to identify or rule out: (See differential diagnosis section) The following tests were ordered, and results were reviewed by me and discussed with patient: (See diagnostic results section) I reviewed and agreed with the following test results read by other providers: CT head I reviewed the following notes from the pt's past medical encounters: Encounter November 15, 2024 for hypertension Additional information was gathered from interviewing the following independent historians: EMS personnel Addressed an acute or chronic illness that poses a threat to life or bodily function: Hypocalcemia Decision regarding hospitalization or escalation of hospital level of care: Risk and benefits of admission for further treatment of patient's condition was considered. Due to patient's current clinical condition, high risk of decline and poor outcome if discharged and need for further inpatient management and monitoring, patient will be admitted to the hospital. Drug therapy requiring intensive monitoring for toxicity: IV calcium gluconate Parenteral controlled substances: N/A Critical Care Note Critical Care Time?: No Stability Stability form required: No I personally scribed for AGUSTÍN CARMONA MD ([email or web address]) on 11/25/24 at 18:47. Electronically submitted by Brennon Salinas ([email or web address]). I personally scribed for AGUSTÍN CARMONA MD ([email or web address]) on 11/25/24 at 19:53. Electronically submitted by Brennon Salinas ([email or web address]). I personally scribed for AGUSTÍN CARMONA MD ([email or web address]) on 11/25/24 at 21:23. Electronically submitted by Brennon Salinas ([email or web address]). AGUSTÍN CARMONA MD Nov 25, 2024 18:47
[2024-11-25 19:00] VITALS: PULSE 112; RESP 19; O2SAT 97
[2024-11-25 19:24] LABS: Hematocrit 33.7 % (36.0-46.0); Hemoglobin 11.3 g/dL (12.2-16.2); Mean Corpuscular Hemoglobin 31.7 pg (28.0-32.0); Mean Corpuscular Volume 94.2 fL (80.0-100.0); Nucleated Red Blood Cells % 0.1 %
[2024-11-25 19:25] LABS: Chloride 102 mmol/L (98-107); Potassium 3.6 mmol/L (3.5-5.1); Sodium 139 mmol/L (136-145)
[2024-11-25 19:26] LABS: Anion Gap 14 (5-15); Carbon Dioxide 23 mmol/L (20-31)
[2024-11-25 19:31] LABS: BUN/Creatinine Ratio 10.9 (10.0-20.0); Blood Urea Nitrogen 14 mg/dL (9-23); Calcium 5.7 mg/dL (8.7-10.4); Glucose 97 mg/dL (74-106)
[2024-11-25 19:33] LABS: Magnesium 1.3 mg/dL (1.6-2.6)
[2024-11-25] MEDS: CALCIUM GLUC 1,000mg/50ml-NS 50 ML IV ONE (19:51)
[2024-11-25 19:58] VITALS: PULSE 116; RESP 20; O2SAT 94
[2024-11-25] MEDS ORDERED: DOCUSATE SOD 100 MG CAP PO PRN (20:30)
[2024-11-25] MEDS: SODIUM CHLORIDE 0.9% 1,000 ML IV SCH (20:30)
[2024-11-25] MEDS ORDERED: ONDANSETRON HCL 4 MG/2 ML VIAL IV PRN (20:30)
[2024-11-25] MEDS ORDERED: HYDROcodone-ACET 5/325MG TAB PO PRN (20:30)
[2024-11-25] MEDS: MAGNESIUM SULFATE 1GM/100ML 100 ML IV ONE (20:40)
[2024-11-25] MEDS: ATORVASTATIN 20 MG TAB PO SCH (20:41)
--- NOTE | 2024-11-25 20:43 | DVH ---
EXAM: CT HEAD WITHOUT CONTRAST INDICATION: Seizure, new onset tremors TECHNIQUE: CT of the head without intravenous contrast. Radiation Dose Information: CT Dose: CTDI volume is 128.5 mGy. Dose-length product is 2530.04 mGy*cm The dose indicators for CT are the volume Computed Tomography (CT) Dose Index (CTDIvol) and the Dose Length Product (DLP), and are measured in units of mGy and mGy-cm, respectively. These indicators are not patient dose, but values generated from the CT scanner acquisition factors. The report includes radiation exposure data for exposures received during this examination. COMPARISON: None FINDINGS: There is no evidence of acute intracranial hemorrhage, extra-axial collection, mass effect, midline s hift, herniation or hydrocephalus. Scattered idiopathic calcifications bilaterally The ventricles, sulci and cisterns are age appropriate. The vasquez-white differentiation is intact. Patchy periventricular and subcortical white matter hypoattenuation is nonspecific but may be related to small vessel ischemic disease. The visualized paranasal sinuses and mastoid air cells are clear. The surrounding soft tissues and osseous structures are unremarkable. IMPRESSION: 1. Scattered idiopathic bilateral symmetrical calcifications. 2. No acute intracranial hemorrhage 3. No CT findings of territorial ischemia.
[2024-11-25] MEDS ORDERED: hydrALAZINE HCL 20 MG/ML VL IV PRN (20:45)
[2024-11-25] MEDS: METOPROLOL TARTRATE 25 MG TAB PO SCH (21:01)
--- NOTE | 2024-11-25 21:19 | DVHHP2 ---
History of Present Illness Reason for Visit: Hypocalcemia History of Present Illness The patient is a 39-year-old female with multiple past medical history including CHF, anxiety, diabetes mellitus, schizophrenia, and seizures who presented to [facility] ED with complaint of tremors. Patient was picked up at a board and care facility given a change in patient's condition including tremors, facial numbness, twisting, anxious, and generalized weakness. Patient was seen and evaluated in the ED, laboratory data shows WBC 8.4, platelets 134, sodium 139, potassium 3.6, BUN 14, creatinine 1.28, glucose 97, calcium 5.7, phosphorus 6.5, magnesium 1.3, blood pressure 131/85, heart rate 114, temperature 98.1 F, O2 saturation 94% on room air. Head CT showed no acute intracranial hemorrhage. Please see medication orders section in the computer. On my assessment, patient denied chest pain, no headache, no dizziness, no diaphoresis, no shortness of breaths, no nausea, no vomiting, no fever, no chills. Patient was admitted for further evaluation and medical management. Past Medical History Depression, Anxiety, CHF, CKF, DM, High Lipids, HTN, Schizophrenia, Seizures, Thyroid, Bipolar disorder Past Surgical History Cholecystectomy Family History Reviewed, noncontributory to the management of this case. Past Social History The patient lives at home, denies smoking, alcohol or illicit drugs abuse. Review of Systems Constitutional: Yes: Weakness; No: Fever, Chills, Sweats, Malaise, Other Eyes: No: Pain, Vision change, Conjunctivae inflammation, Eyelid inflammation, Other, Redness ENT: No: Ear pain, Ear discharge, Nose pain, Nose discharge, Nose congestion, Mouth pain, Mouth swelling, Throat pain, Throat swelling, Other Respiratory: No: Cough, Dry, Shortness of breath, SOB with excertion, Wheezing, Hemoptysis, Pleuritic Pain, Sputum, Wheezing, Other Cardiovascular: No: Chest Pain, Palpitations, Orthopnea, Paroxysmal Noc. Dyspnea, Edema, Lt Headedness, Other Gastrointestinal: No: Nausea, Vomiting, Abdominal Pain, Diarrhea, Constipation, Melena, Hematochezia, Other Genitourinary: No Dysuria, No Frequency, No Incontinence, No Hematuria, No Retention, No Other Musculoskeletal: No: other, neck pain, shoulder pain, arm pain, back pain, hand pain, leg pain, foot pain Skin: No: Rash, Lesions, Jaundice, Bruising, Other Neurological: Other (Tremors); No: Weakness, Numbness, Incoordination, Change in speech, Confusion, Seizures Allergies: Coded Allergies: NO KNOWN ALLERGIES (Unverified , 08/23/24) Medications Current Medications Medications Dose Ordered Sig/Ailyn Route Start Time Stop Time Status Last Admin Dose Admin Levothyroxine Sodium 100 mcg QAM@0600 PO 11/26/24 06:00 Levetiracetam 100 ml @ 400 mls/hr BID IV 11/25/24 22:00 Sertraline HCl 25 mg DAILY PO 11/26/24 10:00 Atorvastatin Calcium 20 mg HS PO 11/25/24 22:00 11/25/24 20:41 20 MG Divalproex Sodium 500 mg BID PO 11/25/24 22:00 11/25/24 20:41 500 MG Calcium Carbonate 500 mg TIDWM PO 11/26/24 08:00 Sodium Chloride 1,000 ml @ 60 mls/hr [id number] IV 11/25/24 20:30 Acetaminophen/ Hydrocodone Bitart 1 tab Q4HP PRN PO 11/25/24 20:30 Ondansetron HCl 4 mg Q4HP PRN IV 11/25/24 20:30 Docusate Sodium 100 mg BIDPRN PRN PO 11/25/24 20:30 Acetaminophen 650 mg Q6HP PRN PO 11/25/24 20:30 Famotidine 20 mg DAILY IV 11/26/24 10:00 Metoprolol Tartrate 25 mg BID PO 11/25/24 22:00 11/25/24 21:01 25 MG Hydralazine HCl 10 mg Q6HP PRN IV 11/25/24 20:45 Exam Vital Signs Vital Signs Date Time Temp Pulse Resp B/P (MAP) Pulse Ox O2 Delivery O2 Flow Rate FiO2 11/25/24 21:01 98 130/53 11/25/24 19:58 98.1 20 94 98.1 11/25/24 19:58 Room Air* 0 21 General Appearance: Alert, Oriented X3, Cooperative, No acute distress HEENT: Atraumatic, PERRLA, EOMI, Mucous membr. moist/pink Respiratory: Normal air movement Cardiovascular: Regular rate, Normal S1, Normal S2, No murmurs Abdominal: Normal bowel sounds, Soft, No tenderness, No hepatospenomegaly, No masses Extremities: No clubbing, No cyanosis, No edema, Normal pulses, No tenderness/swelling Skin: No rashes, No significant lesion Neuro: Normal speech, Normal tone, Sensation intact, Cranial nerves 3-12 NL, Reflexes 2+, Other (Generalized weakness) Psych/Mental Status: Mental status NL, Mood NL Labs/Xrays Labs Test 11/25/24 19:09 11/25/24 18:59 Range/Units White Blood Count 8.4 4.4-10.8 10^3/uL Red Blood Count 3.58 L 4.0-5.20 10^6/uL Hemoglobin 11.3 L 12.2-16.2 g/dL Hematocrit 33.7 L 36.0-46.0 % Mean Corpuscular Volume 94.2 80.0-100.0 fL Mean Corpuscular Hemoglobin 31.7 28.0-32.0 pg Mean Corpuscular Hemoglobin Concent 33.7 32.0-36.0 g/dL Red Cell Distribution Width 14.1 11.8-14.3 % Platelet Count 134 L 140-450 10^3/uL Mean Platelet Volume 9.5 6.9-10.8 fL Neutrophils (%) (Auto) 67.3 37.0-80.0 % Lymphocytes (%) (Auto) 23.9 10.0-50.0 % Monocytes (%) (Auto) 7.0 0.0-12.0 % Eosinophils (%) (Auto) 1.5 0.0-7.0 % Basophils (%) (Auto) 0.3 0.0-2.0 % Neutrophils # (Auto) 5.7 1.6-8.6 10 ^3/uL Lymphocytes # (Auto) 2.0 0.4-5.4 10 ^3/uL Monocytes # (Auto) 0.6 0-1.3 10 ^3/uL Eosinophils # (Auto) 0.1 0-0.8 10 ^3/uL Basophils # (Auto) 0 0-0.2 10 ^3/uL Nucleated Red Blood Cells 0.1 % Sodium Level 139 136-145 mmol/L Potassium Level 3.6 3.5-5.1 mmol/L Chloride Level 102 98-107 mmol/L Carbon Dioxide Level 23 20-31 mmol/L Anion Gap 14 5-15 Blood Urea Nitrogen 14 9-23 mg/dL Creatinine 1.28 H 0.550-1.02 mg/dL Glomerular Filtration Rate Calc 54 >90 mL/min BUN/Creatinine Ratio 10.9 10.0-20.0 Serum Glucose 97 74-106 mg/dL Calcium Level 5.7 *L 8.7-10.4 mg/dL Phosphorus Level 6.5 H 2.4-5.1 mg/dL Magnesium Level 1.3 L 1.6-2.6 mg/dL Thyroid Stimulating Hormone (TSH) 2.04 0.55-4.78 uIU/mL POC Glucose 87 70-106 mg/dl PATIENT: CHAD CONKLIN ACCT: [id number] UNIT: [id number] : 1985 LOC: ER ROOM / BED: / AGE / SEX: 39 / F ADM STATUS: REG ER SERVICE 49 ORDERING PHYSICIAN: AGUSTÍN CARMONA MD PROCEDURE(s): HWOCT - HEAD WITHOUT CONTRAST REASON: ? Seizure, new onset tremors ORDER NUMBER(s): [id number], ACCESSION NUMBER(s): [id number] EXAM: CT HEAD WITHOUT CONTRAST INDICATION: Seizure, new onset tremors TECHNIQUE: CT of the head without intravenous contrast. Radiation Dose Information: CT Dose: CTDI volume is 128.5 mGy. Dose-length product is 2530.04 mGy*cm The dose indicators for CT are the volume Computed Tomography (CT) Dose Index (CTDIvol) and the Dose Length Product (DLP), and are measured in units of mGy and mGy-cm, respectively. These indicators are not patient dose, but values generated from the CT scanner acquisition factors. The report includes radiation exposure data for exposures received during this examination. COMPARISON: None FINDINGS: There is no evidence of acute intracranial hemorrhage, extra-axial collection, mass effect, midline shift, herniation or hydrocephalus. Scattered idiopathic calcifications bilaterally The ventricles, sulci and cisterns are age appropriate. The vasquez-white differentiation is intact. Patchy periventricular and subcortical white matter hypoattenuation is nonspecific but may be related to small vessel ischemic disease. The visualized paranasal sinuses and mastoid air cells are clear. The surrounding soft tissues and osseous structures are unremarkable. IMPRESSION: 1. Scattered idiopathic bilateral symmetrical calcifications. 2. No acute intracranial hemorrhage 3. No CT findings of territorial ischemia. SEPSIS Sepsis Screen Date sepsis recognized/suspect: Nov 25, 2024 Time Sepsis recognized/suspect: 2000 Recent Procedure: No On Antibiotic Therapy: No Respiratory Rate >20: No Heart Rate >90: No Temp<36 C (96.8 F) or >38.3 C: No SBP <90 or MAP <65 mmHG: No New Acute Mental Status Change: No Is the patient on CPAP, BIPAP,: No Physician Orders Head Without Contrast (11/25/24 19:50) Levothyroxine Tablet (Synthroid Tablet) (11/26/24 06:00) Levetiracetam 500 Mg/100ml (Levetiraceta (11/25/24 22:00) Sertraline Hcl (Zoloft) (11/26/24 10:00) Atorvastatin (Lipitor) (11/25/24 22:00) Magnesium Sulfate 1gm/100ml (11/25/24 20:30) Divalproex Dr Tablet (Depakote "Dr" Tabl (11/25/24 22:00) Calcium Carbonate (Tums) (11/26/24 08:00) Allergies (11/25/24 20:18) Code Status (11/25/24 20:18) Sodium Chloride 0.9% (11/25/24 20:30) Oxygen Per Hour (11/25/24 20:18) Hydrocodone-Acet 5/325mg Tab ([place] 5/32 (11/25/24 20:30) Ondansetron Hcl (Zofran) (11/25/24 20:30) Docusate Sodium Capsule (Colace Capsule) (11/25/24 20:30) Fall Risk Precautions In Place QSHIFT (11/25/24 20:18) Complete Blood Count (11/26/24 04:00) Comprehensive Metabolic Panel (11/26/24 04:00) Cardiac Diet-2gna,Lofat,Lochol (11/26/24 Breakfast) Condition: Serious (11/25/24 20:18) Acetaminophen Tablet (Tylenol Tablet) (11/25/24 20:30) Maintain Bed Rest (11/25/24 20:18) Sequential Compression Device (11/25/24 ) Famotidine Injection (Pepcid Injection) (11/26/24 10:00) Metoprolol Tartrate Tablet (Lopressor Ta (11/25/24 22:00) Hydralazine Injection (Apresoline Inject (11/25/24 20:45) Admit (11/25/24 21:18) Nitroglycerin Sublingual (Ntrostat Subli (11/25/24 21:30) Morphine Sulfate Injection (11/25/24 21:30) Stat Ekg For Chest Pain (11/25/24 21:18) Notify Of Changes From Base (11/25/24 21:18) Ceramic Products Sales Engineer For 24 Hours (11/25/24 21:18) Emergency Dysrhythmia Protocol (11/25/24 21:18) Vital Signs Date Time Temp Pulse Resp B/P (MAP) Pulse Ox O2 Delivery O2 Flow Rate FiO2 11/25/24 21:01 98 130/53 11/25/24 19:58 98.1 114 20 131/85 (100) 94 98.1 11/25/24 19:58 116 20 94 Room Air* 0 21 11/25/24 19:04 97 Room Air* 0 21 11/25/24 19:00 112 19 97 Room Air* 0 11/25/24 18:56 98.5 123 22 139/92 96 98.5 11/25/24 18:56 98.7 112 18 125/46 (72) 97 98.7 Laboratory Tests Test 11/25/24 19:09 White Blood Count 8.4 10^3/uL (4.4-10.8) Medications Medications Dose Ordered Sig/Ailyn Route Start Time Stop Time Status Last Admin Dose Admin Atorvastatin Calcium 20 mg HS PO 11/25/24 22:00 11/25/24 20:41 20 MG Calcium Gluconate/ Sodium Chloride 50 ml @ 120 mls/hr ONCE ONCE IV 11/25/24 19:45 11/25/24 20:09 DC 11/25/24 19:51 120 MLS/HR Diphenhydramine HCl 50 mg ONCE ONCE PO 11/25/24 18:45 11/25/24 18:48 DC 11/25/24 19:11 50 MG Divalproex Sodium 500 mg BID PO 11/25/24 22:00 11/25/24 20:41 500 MG Magnesium Sulfate/ Dextrose 100 ml @ 100 mls/hr ONCE ONCE IV 11/25/24 20:30 11/25/24 21:29 11/25/24 20:40 100 MLS/HR Metoprolol Tartrate 25 mg BID PO 11/25/24 22:00 11/25/24 21:01 25 MG Assessment/Plan Assessment/Plan Hypocalcemia Tremor Electrolyte imbalance Generalized weakness Plan 1. Admit to telemetry unit 2. Breathing treatment 3. Pain control management 4. Management of fluids and electrolytes 5. Consultation for hospitalist 6. Diagnostic tests head CT 7. DVT prophylaxis-on SCDs 8. Repeat labs CBC, CMP in a.m. 9. Continue with current medical management 10. Treatment plan discussed with patient and RN. Patient verbalized understanding. Plan discussed with: Patient, Other (RN) My Orders Orders - HOLLY LESTER DNP Procedure Category Date Status Time Levothyroxine Tablet PHA 11/26/24 In Process (Synthroid Tablet) 06:00 Levetiracetam 500 PHA 11/25/24 In Process Mg/100ml (Levetiraceta 22:00 Sertraline Hcl PHA 11/26/24 In Process (Zoloft) 10:00 Atorvastatin (Lipitor) PHA 11/25/24 In Process 22:00 Magnesium Sulfate PHA 11/25/24 In Process 1gm/100ml 20:[address] Tablet PHA 11/25/24 In Process (Depakote "Dr" Tabl 22:00 Calcium Carbonate PHA 11/26/24 In Process (Tums) 08:00 Allergies NNAMDI 11/25/24 In Process 20:18 Code Status CODE 11/25/24 Transmitted 20:18 Sodium Chloride 0.9% PHA 11/25/24 In Process 20:30 Oxygen Per Hour RT 11/25/24 Transmitted 20:18 Hydrocodone-Acet PHA 11/25/24 In Process 5/325mg Tab ([place] 20:30 Ondansetron Hcl PHA 11/25/24 In Process (Zofran) 20:30 Docusate Sodium PHA 11/25/24 In Process Capsule (Colace 20:30 Fall Risk Precautions NNAMDI 11/25/[address] 20:18 Complete Blood Count LAB 11/26/24 Verified 04:00 Comprehensive LAB 11/26/24 Verified Metabolic Panel 04:00 Cardiac DIET 11/26/24 Transmitted Diet-2gna,Lofat,Lochol Breakfast Condition: Serious [facility] 11/25/24 In Process 20:18 Acetaminophen Tablet [facility] 11/25/24 In Process (Tylenol Tablet) 20:30 Maintain Bed Rest [facility] 11/25/24 In Process 20:18 Sequential [facility] 11/25/24 In Process Compression Device Famotidine Injection [facility] 11/26/24 In Process (Pepcid Injection) 10:00 Metoprolol Tartrate [facility] 11/25/24 In Process Tablet (Lopressor Ta 22:00 Hydralazine Injection [facility] 11/25/24 In Process (Apresoline Inject 20:45 Admit ADMIT 11/25/24 Verified 21:18 Nitroglycerin [facility] 11/25/24 Verified Sublingual (Ntrostat 21:30 Morphine Sulfate [facility] 11/25/24 Verified Injection 21:30 Stat Ekg For Chest [facility] 11/25/24 Verified Pain 21:18 Notify Md Of Changes [facility] 11/25/24 Verified From Base 21:18 Ceramic Products Sales Engineer For [facility] 11/25/24 Verified 24 Hours 21:18 Emergency Dysrhythmia [facility] 11/25/24 Verified Protocol 21:18 Problem List: (1) Hypocalcemia (2) Tremor (3) Electrolyte imbalance (4) Generalized weakness Date of Service: Nov 25, 2024 Billing Provider: HOLLY LESTER DNP Common Visit Codes: [id number] INP/OBS CARE (HIGH) HOLLY LESTER DNP Nov 25, 2024 21:19
[2024-11-25] MEDS: levETIRAcetam 500 mg/100ml 100 ML IV SCH (21:25)
[2024-11-25] MEDS ORDERED: NITROGLYCERIN 0.4 MG SL TAB SL PRN (21:30)
[2024-11-25] MEDS ORDERED: MORPHINE SULFATE INJ 2 MG/ml SYRG IV PRN (21:30)
[2024-11-25 22:26] VITALS: BP 126/78; PULSE 99; RESP 18; TEMP 98.6; O2SAT 96
[2024-11-25 22:48] VITALS: RESP 16; O2SAT 98
[2024-11-26] VITALS (9 sets, daily range): BP systolic 93–121; BP diastolic 56–87; PULSE 62–94; RESP 16–18; TEMP 97.3–98.4; O2SAT 92–95
[2024-11-26] MEDS ORDERED: OMEP10CA5 PO (01:12)
[2024-11-26] MEDS ORDERED: RISP4TAB53 PO (01:12)
[2024-11-26] MEDS ORDERED: ERGO1CAP12 PO (01:12)
[2024-11-26] MEDS ORDERED: SPIR25TA8 PO (01:12)
[2024-11-26] MEDS: LEVOTHYROXINE SODIUM 100 MCG TAB PO SCH (05:06)
[2024-11-26 05:35] LABS: Hematocrit 28.2 % (36.0-46.0); Hemoglobin 9.9 g/dL (12.2-16.2); Mean Corpuscular Hemoglobin 32.7 pg (28.0-32.0); Mean Corpuscular Volume 93.6 fL (80.0-100.0); Nucleated Red Blood Cells % 0.0 %
[2024-11-26 05:49] LABS: Albumin 3.6 g/dL (3.2-4.8); Alkaline Phosphatase 81 U/L (46-116); Anion Gap 14 (5-15); BUN/Creatinine Ratio 10.4 (10.0-20.0); Bilirubin, Total 0.3 mg/dL (0.2-1.0); Blood Urea Nitrogen 12 mg/dL (9-23); Carbon Dioxide 24 mmol/L (20-31); Chloride 103 mmol/L (98-107); Glucose 85 mg/dL (74-106); Potassium 3.6 mmol/L (3.5-5.1); Sodium 141 mmol/L (136-145); Total Protein 6.3 g/dL (5.7-8.2)
[2024-11-26 05:54] LABS: Alanine Aminotransferase < 9 U/L (7-40)
[2024-11-26 05:56] LABS: Calcium 5.7 mg/dL (8.7-10.4)
[2024-11-26] MEDS ORDERED: CALCIUM GLUC 1,000mg/50ml-NS 50 ML IV ONE (06:15)
[2024-11-26] MEDS: CALCIUM GLUC 1,000mg/50ml-NS 50 ML IV SCH (06:32)
[2024-11-26] MEDS: CALCIUM CARB 500 MG CHEW TAB PO SCH (08:27)
[2024-11-26] MEDS: SERTRALINE HCL 50 MG TAB PO SCH (10:27)
[2024-11-26] MEDS: FAMOTIDINE (10MG/ML) 2ML VL IV SCH (10:27)
--- NOTE | 2024-11-26 14:21 | DVHPN2 ---
Subjective Patient denies any symptoms Reviewed: Care Plan, H&P, Labs, Medications Changes from previous H/P or p: No Changes General: Per HPI Eyes: No Pain, No Vision change, No Conjunctivae inflammation, No Eyelid inflammation, No Other, No Redness ENT: No Ear pain, No Ear discharge, No Nose pain, No Nose discharge, No Nose congestion, No Mouth pain, No Mouth swelling, No Throat pain, No Throat swelling, No Other Cardiovascular: No Chest Pain, No Palpitations, No Orthopnea, No Paroxysmal Noc. Dyspnea, No Edema, No Lt Headedness, No Other Respiratory: No Cough, No Dry, No Shortness of breath, No SOB with excertion, No Wheezing, No Hemoptysis, No Pleuritic Pain, No Sputum, No Other Gastrointestinal: No Nausea, No Vomiting, No Abdominal Pain, No Diarrhea, No Constipation, No Melena, No Hematochezia, No Other Genitourinary: No Dysuria, No Frequency, No Incontinence, No Hematuria, No Retention, No Other Musculoskeletal: No other, No neck pain, No shoulder pain, No arm pain, No back pain, No hand pain, No leg pain, No foot pain Skin: No Rash, No Lesions, No Jaundice, No Bruising, No Other Objective Vitals Vital Signs Date Time Temp Pulse Resp B/P (MAP) Pulse Ox O2 Delivery O2 Flow Rate FiO2 11/26/24 10:28 62 109/56 11/26/24 09:27 97.7 16 94 97.7 11/25/24 22:48 Room Air* 0 21 Intake/Output Intake and Output 11/26/24 07:00 Intake Total 100 ml Balance 100 ml Intake Oral 100 ml # Voids 2 General Appearance: Alert, Oriented X3, Cooperative, No acute distress HEENT: Atraumatic, PERRLA Neck: Carotid [place] Lungs: Clear to auscultation, Normal air movement Cardiovascular: Normal S1, Normal S2 Abdomen: Normal bowel sounds, Soft, No tenderness, No hepatospenomegaly Musculoskeletal: Normal sensory function, Normal motor function, Other (chvostek test positive) Neuro: Normal gait, Normal speech Skin: Dry, Intact Psych/Mental Status: Mental status NL, Mood NL Medications Current Medications Medications Dose Ordered Sig/Ailyn Route Start Time Stop Time Status Last Admin Dose Admin Levothyroxine Sodium 100 mcg QAM@0600 PO 11/26/24 06:00 11/26/24 05:06 100 MCG Levetiracetam 100 ml @ 400 mls/hr BID IV 11/25/24 22:00 11/26/24 10:29 400 MLS/HR Sertraline HCl 25 mg DAILY PO 11/26/24 10:00 11/26/24 10:27 25 MG Atorvastatin Calcium 20 mg HS PO 11/25/24 22:00 11/25/24 20:41 20 MG Divalproex Sodium 500 mg BID PO 11/25/24 22:00 11/26/24 10:28 500 MG Calcium Carbonate 500 mg TIDWM PO 11/26/24 08:00 11/26/24 14:09 500 MG Sodium Chloride 1,000 ml @ 60 mls/hr [id number] IV 11/25/24 20:30 11/25/24 20:30 60 MLS/HR Acetaminophen/ Hydrocodone Bitart 1 tab Q4HP PRN PO 11/25/24 20:30 Ondansetron HCl 4 mg Q4HP PRN IV 11/25/24 20:30 Docusate Sodium 100 mg BIDPRN PRN PO 11/25/24 20:30 Acetaminophen 650 mg Q6HP PRN PO 11/25/24 20:30 Famotidine 20 mg DAILY IV 11/26/24 10:00 11/26/24 10:27 20 MG Metoprolol Tartrate 25 mg BID PO 11/25/24 22:00 11/26/24 10:28 25 MG Hydralazine HCl 10 mg Q6HP PRN IV 11/25/24 20:45 Nitroglycerin 0.4 mg Q5MINP PRN SL 11/25/24 21:30 Morphine Sulfate 2 mg Q30M PRN IV 11/25/24 21:30 Laboratory Results Laboratory Tests 11/26/24 04:46 Chemistry Test 11/25/24 19:09 11/26/24 04:46 Calcium Level 5.7 mg/dL (8.7-10.4) *L 5.7 mg/dL (8.7-10.4) *L Magnesium Level 1.3 mg/dL (1.6-2.6) L Phosphorus Level 6.5 mg/dL (2.4-5.1) H Albumin 3.6 g/dL (3.2-4.8) Total Protein 6.3 g/dL (5.7-8.2) LFT Test 11/26/24 04:46 Alanine Aminotransferase (ALT) < 9 U/L (7-40) Alkaline Phosphatase 81 U/L (46-116) Aspartate Amino Transferase (AST) 15 U/L (13-40) Total Bilirubin 0.3 mg/dL (0.2-1.0) HgA1c, TSH Test 11/25/24 19:09 Thyroid Stimulating Hormone (TSH) 2.04 uIU/mL (0.55-4.78) Microbiology Microbiology Date/Time Source Procedure Growth Status 11/26/24 03:23 Nose MRSA Screen - Final Complete Labs and/or images reviewed: Labs reviewed by me, Image(s) reviewed by me Assessment/Plan Assessment/Plan Impression: -hypercalcemia -hyperparathyroidism -developmentally delayed -schizoaffective disorder -primary hypertension Plan: -given patient has recently been discharged and returning with signs and symptoms of hypocalcemia, principal planner we will be consulted -calcium replacement -repeat PTH -continue antipsychotics -repeat labs in a.m. Total time spent with patient discussing and formulating plan of care: 35 minutes. This medical document was created using an electronic medical record system with [employer] dictation system. Although this document has been carefully reviewed, there may still be some phonetic and typographical errors. These areas are purely typographical due to imperfections of the software programs, and do not reflect any compromise in the patient's medical care. Plan discussed with: Patient, Other (RN) My Orders Orders - VALENTE HARRIS NP Procedure Category Date Status Time Parathyroid Hormone LAB 11/26/24 Logged Intact 14:09 Comprehensive LAB 11/27/24 Verified Metabolic Panel 04:00 * Endocrinology CONS 11/26/24 Transmitted Consult 14:13 Date of Service: Nov 26, 2024 Billing Provider: VALENTE HARRIS NP Common Visit Codes: [id number] INP/OBS CARE(HIGH) VALENTE HARRIS NP Nov 26, 2024 14:21
[2024-11-26] MEDS: ACETAMINOPHEN 325 MG TAB PO PRN (17:47)
[2024-11-27] VITALS (8 sets, daily range): BP systolic 92–118; BP diastolic 37–73; PULSE 66–82; RESP 15–18; TEMP 97.2–98.5; O2SAT 94–98
[2024-11-27 08:24] LABS: Alanine Aminotransferase < 9 U/L (7-40); Albumin 4.0 g/dL (3.2-4.8); Alkaline Phosphatase 86 U/L (46-116); Anion Gap 11 (5-15); BUN/Creatinine Ratio 9.9 (10.0-20.0); Blood Urea Nitrogen 12 mg/dL (9-23); Calcium 6.8 mg/dL (8.7-10.4); Carbon Dioxide 27 mmol/L (20-31); Chloride 105 mmol/L (98-107); Glucose 76 mg/dL (74-106); Potassium 3.7 mmol/L (3.5-5.1); Sodium 143 mmol/L (136-145); Total Protein 7.1 g/dL (5.7-8.2)
[2024-11-27 08:26] LABS: Bilirubin, Total 0.3 mg/dL (0.2-1.0)
[2024-11-27] MEDS: CALCIUM GLUC 1,000mg/50ml-NS 50 ML IV ONE (12:45)
--- NOTE | 2024-11-27 13:41 | DVHPN2 ---
Subjective Patient denies any symptoms Reviewed: Care Plan, H&P, Labs, Medications Changes from previous H/P or p: No Changes General: Per HPI Eyes: No Pain, No Vision change, No Conjunctivae inflammation, No Eyelid inflammation, No Other, No Redness ENT: No Ear pain, No Ear discharge, No Nose pain, No Nose discharge, No Nose congestion, No Mouth pain, No Mouth swelling, No Throat pain, No Throat swelling, No Other Cardiovascular: No Chest Pain, No Palpitations, No Orthopnea, No Paroxysmal Noc. Dyspnea, No Edema, No Lt Headedness, No Other Respiratory: No Cough, No Dry, No Shortness of breath, No SOB with excertion, No Wheezing, No Hemoptysis, No Pleuritic Pain, No Sputum, No Other Gastrointestinal: No Nausea, No Vomiting, No Abdominal Pain, No Diarrhea, No Constipation, No Melena, No Hematochezia, No Other Genitourinary: No Dysuria, No Frequency, No Incontinence, No Hematuria, No Retention, No Other Musculoskeletal: No other, No neck pain, No shoulder pain, No arm pain, No back pain, No hand pain, No leg pain, No foot pain Skin: No Rash, No Lesions, No Jaundice, No Bruising, No Other Objective Vitals Vital Signs Date Time Temp Pulse Resp B/P (MAP) Pulse Ox O2 Delivery O2 Flow Rate FiO2 11/27/24 11:01 66 112/73 11/27/24 09:00 97.9 16 98 97.9 11/26/24 20:00 Room Air* 0 21 Intake/Output Intake and Output 11/27/24 07:00 Intake Total 385 ml Balance 385 ml Intake Oral 285 ml IV Total 100 ml # Voids 8 # Bowel Movements 1 General Appearance: Alert, Oriented X3, Cooperative, No acute distress HEENT: Atraumatic, PERRLA Neck: Carotid [place] Lungs: Clear to auscultation, Normal air movement Cardiovascular: Normal S1, Normal S2 Abdomen: Normal bowel sounds, Soft, No tenderness, No hepatospenomegaly Musculoskeletal: Normal sensory function, Normal motor function, Other (chvostek test positive) Neuro: Normal gait, Normal speech Skin: Dry, Intact Psych/Mental Status: Mental status NL, Mood NL Medications Current Medications Medications Dose Ordered Sig/Ailyn Route Start Time Stop Time Status Last Admin Dose Admin Levothyroxine Sodium 100 mcg QAM@0600 PO 11/26/24 06:00 11/27/24 05:58 100 MCG Levetiracetam 100 ml @ 400 mls/hr BID IV 11/25/24 22:00 11/27/24 10:00 400 MLS/HR Sertraline HCl 25 mg DAILY PO 11/26/24 10:00 11/27/24 10:01 25 MG Atorvastatin Calcium 20 mg HS PO 11/25/24 22:00 11/26/24 21:29 20 MG Divalproex Sodium 500 mg BID PO 11/25/24 22:00 11/27/24 10:01 500 MG Calcium Carbonate 500 mg TIDWM PO 11/26/24 08:00 11/27/24 12:00 500 MG Sodium Chloride 1,000 ml @ 60 mls/hr [id number] IV 11/25/24 20:30 11/27/24 05:58 60 MLS/HR Acetaminophen/ Hydrocodone Bitart 1 tab Q4HP PRN PO 11/25/24 20:30 Ondansetron HCl 4 mg Q4HP PRN IV 11/25/24 20:30 Docusate Sodium 100 mg BIDPRN PRN PO 11/25/24 20:30 Acetaminophen 650 mg Q6HP PRN PO 11/25/24 20:30 11/26/24 17:47 650 MG Famotidine 20 mg DAILY IV 11/26/24 10:00 11/27/24 10:00 20 MG Metoprolol Tartrate 25 mg BID PO 11/25/24 22:00 11/27/24 10:01 25 MG Hydralazine HCl 10 mg Q6HP PRN IV 11/25/24 20:45 Nitroglycerin 0.4 mg Q5MINP PRN SL 11/25/24 21:30 Morphine Sulfate 2 mg Q30M PRN IV 11/25/24 21:30 Laboratory Results Laboratory Tests 11/26/24 04:46 11/27/24 06:52 Chemistry Test 11/27/24 06:52 Albumin 4.0 g/dL (3.2-4.8) Calcium Level 6.8 mg/dL (8.7-10.4) L Magnesium Level 1.7 mg/dL (1.6-2.6) Total Protein 7.1 g/dL (5.7-8.2) LFT Test 11/27/24 06:52 Alanine Aminotransferase (ALT) < 9 U/L (7-40) Alkaline Phosphatase 86 U/L (46-116) Aspartate Amino Transferase (AST) 14 U/L (13-40) Total Bilirubin 0.3 mg/dL (0.2-1.0) Microbiology Microbiology Date/Time Source Procedure Growth Status 11/26/24 03:23 Nose MRSA Screen - Final Complete Labs and/or images reviewed: Labs reviewed by me, Image(s) reviewed by me Assessment/Plan Assessment/Plan Impression: -hypercalcemia -hyperparathyroidism -developmentally delayed -schizoaffective disorder -primary hypertension Plan: Events: Awaiting for endocrinology consultation -continues to have hypocalcemia, IV calcium gluconate -continue antipsychotics -repeat labs in a.m. Total time spent with patient discussing and formulating plan of care: 35 minutes. This medical document was created using an electronic medical record system with [employer] dictation system. Although this document has been carefully reviewed, there may still be some phonetic and typographical errors. These areas are purely typographical due to imperfections of the software programs, and do not reflect any compromise in the patient's medical care. Plan discussed with: Patient, Other (RN) My Orders Orders - VALENTE HARRIS NP Procedure Category Date Status Time * Endocrinology CONS 11/26/24 Transmitted Consult 14:13 Basic Metabolic Panel LAB 11/28/24 Verified 04:00 Date of Service: Nov 27, 2024 Billing Provider: VALENTE HARRIS NP Common Visit Codes: [id number] INP/OBS CARE(HIGH) VALENTE HARRIS NP Nov 27, 2024 13:41
--- NOTE | 2024-11-27 13:46 | DVHINCON2 ---
Date of service: Nov 27, 2024 Reason for Consultation Hypocalcemia History of Present Illness Patient is 39-year-old female with past medical history of seizure, schizophrenia, depression, hypocalcemia presented to hospital with a chief complaint of twitching over the face, questionable seizure-like activity, EMS called and brought to the hospital for further evaluation. As per patient she lives in [facility] and started having these symptoms including facial numbness, twitching, generalized weakness that prompted visit to the hospital. During hospitalization patient found to have severe hypocalcemia with calcium level 5.7, hypomagnesemia with level of 1.3. Patient was given 1 g of IV calcium gluconate, concurrently patient is found to have low PTH. At the time of evaluation, patient is feeling much better, alert oriented time place and person, denying any complaints. Patient does had mild essential tremors, as per patient she had this for long time. No any new complaints. Past medical history: Depression, schizophrenia, seizures, hypothyroidism,? Bipolar, dyslipidemia, diabetes mellitus Past surgical history: Cholecystectomy Personal history: Patient lives with boyfriend in [facility], sexually active. Patient denied recreational drug use or smoking. Allergy none Family history noncontributory Family History: Seizure disorder Aunt Allergies: Coded Allergies: NO KNOWN ALLERGIES (Unverified , 08/23/24) Home Meds Active Scripts Potassium Chloride (Potassium Chloride ER) 10 Meq Tab, 10 MEQ PO BID for 30 Days, #60 TAB Prov:MANGO GOODMAN MD 11/13/24 Ergocalciferol (VITAMIN D 76017 UNIT) 50,000 [place], [address] UNIT PO Q7D for 30 Days, #10 CAP Prov:YVONNE JARVIS RESIDENT 11/08/24 Spironolactone (Aldactone) 25 Mg Tab, 25 MG PO DAILY for 30 Days, #30 TAB Prov:YVONNE JARVIS RESIDENT 11/08/24 Trazodone Hcl (Trazodone Hcl) 150 Mg Tab, 1 TAB PO QPM for 60 Days, #60 TAB 1 Refill Prov:MANGO GOODMAN MD 11/02/24 Calcium Carbonate-Cholecalcife (Calcium 500 +D3 500-600 mg-Unit) 1 Tab Tab, 1 TAB PO DAILY for 14 Days, #14 TAB Prov:TETE PEDRO 10/22/24 Elastic Bandages & Supports (MEDICAL COMPRESSION STOCK) Stocking Mis, UNITS XX, #2 Prov:AGUSTÍN CARMONA MD 08/24/24 Reported Medications Spironolactone (Spironolactone) 25 Mg Tab, 1 TAB PO DAILY 11/26/24 Risperidone (Risperidone) 4 Mg Tab, PO 11/26/24 Omeprazole (Omeprazole Dr) 10 Mg Cap, 1 CAP PO DAILY 11/26/24 Zolpidem Tartrate (Zolpidem Tartrate) 5 Mg Tab, 2 TAB PO HSPRN PRN 10/03/24 Sertraline Hcl (Sertraline Hcl) 25 Mg Tab, 1 TAB PO DAILY 10/03/24 Ferrous Sulfate (Ferosul) 325 Mg Tab, 1 TAB PO DAILY 10/03/24 Divalproex Sodium (Divalproex Sodium) 500 Mg Tab, 1 TAB PO BID 10/03/24 Quetiapine Fumerate (QUETIAPINE FUMARATE) 400 Mg Tab, 1 TAB PO BID 10/03/24 Hydroxyzine HCl (Hydroxyzine Hydrochloride) 50 Mg Tab, 1 TAB PO BID 10/03/24 Famotidine (Famotidine) 20 Mg Tab, 1 TAB PO BID 10/03/24 Docusate Sodium (Docusate Sodium) 250 Mg Cap, 1 PO DAILY 10/03/24 Senna (Senna) 8.6 Mg Tab, 2 TAB PO BID 10/03/24 Atorvastatin Calcium (ATORVASTATIN CALCIUM) 40 Mg Tab, 1 TAB PO DAILY 10/03/24 Levothyroxine Sodium (Levothyroxine Sodium) 100 Mcg Tab, 1 TAB PO QAM 10/03/24 Levetiracetam (Levetiracetam) 500 Mg Tab, 1 TAB PO BID 10/03/24 Review of Systems ROS Constitutional: No: Fever, Chills, Sweats, Weakness, Malaise, Other Eyes: No: Pain, Vision change, Conjunctivae inflammation, Eyelid inflammation, Other, Redness ENT: No: Ear pain, Ear discharge, Nose pain, Nose discharge, Nose congestion, Mouth pain, Mouth swelling, Throat pain, Throat swelling, Other Respiratory: No: Cough, Dry, Shortness of breath, SOB with excertion, Wheezing, Hemoptysis, Pleuritic Pain, Sputum, Wheezing, Other Cardiovascular: No: Chest Pain, Palpitations, Orthopnea, Paroxysmal Noc. Dyspnea, Edema, Lt Headedness, Other Gastrointestinal: No: Nausea, Vomiting, Abdominal Pain, Diarrhea, Constipation, Melena, Hematochezia, Other Musculoskeletal: No: other, neck pain, shoulder pain, arm pain, back pain, hand pain, leg pain, foot pain Neurological:; No: Weakness, Numbness, Incoordination, Change in speech, Confusion, Seizures Vital Signs Vital Signs Date Time Temp Pulse Resp B/P (MAP) Pulse Ox O2 Delivery O2 Flow Rate FiO2 11/27/24 11:01 66 112/73 11/27/24 09:00 97.9 16 98 97.9 11/26/24 20:00 Room Air* 0 21 Physical Exam Examination General Appearance: Alert, Oriented X3, Cooperative, No acute distress HEENT: EOMI Respiratory: Clear to auscultation, Normal air movement Cardiovascular: Regular rate, Normal S1, Normal S2 Abdominal: Normal bowel sounds Extremities: No cyanosis, No edema, Normal pulses, No tenderness/swelling Skin: No rashes, No breakdown Neuro: Normal gait, Normal speech, Strength at 5/5 X4 ext, Normal tone, Sensation intact, Cranial nerves 3-12 NL, Reflexes 2+ Psych/Mental Status: Mental status NL, Mood NL Labs/Diagnostic Data Labs Test 11/27/24 06:52 11/26/24 14:36 11/26/24 04:46 11/25/24 19:09 Range/Units Sodium Level 143 136-145 mmol/L Potassium Level 3.7 3.5-5.1 mmol/L Chloride Level 105 98-107 mmol/L Carbon Dioxide Level 27 20-31 mmol/L Anion Gap 11 5-15 Blood Urea Nitrogen 12 9-23 mg/dL Creatinine 1.21 H 0.550-1.02 mg/dL Glomerular Filtration Rate Calc 58 >90 mL/min BUN/Creatinine Ratio 9.9 L 10.0-20.0 Serum Glucose 76 74-106 mg/dL Calcium Level 6.8 L 8.7-10.4 mg/dL Magnesium Level 1.7 1.6-2.6 mg/dL Total Bilirubin 0.3 0.2-1.0 mg/dL Aspartate Amino Transferase (AST) 14 13-40 U/L Alanine Aminotransferase (ALT) < 9 7-40 U/L Alkaline Phosphatase 86 46-116 U/L Total Protein 7.1 5.7-8.2 g/dL Albumin 4.0 3.2-4.8 g/dL Parathyroid Hormone (Intact) 6.9 L 18.4-80.1 pg/mL White Blood Count 7.4 4.4-10.8 10^3/uL Red Blood Count 3.02 L 4.0-5.20 10^6/uL Hemoglobin 9.9 L 12.2-16.2 g/dL Hematocrit 28.2 #L 36.0-46.0 % Mean Corpuscular Volume 93.6 80.0-100.0 fL Mean Corpuscular Hemoglobin 32.7 H 28.0-32.0 pg Mean Corpuscular Hemoglobin Concent 34.9 32.0-36.0 g/dL Red Cell Distribution Width 14.0 11.8-14.3 % Platelet Count 111 L 140-450 10^3/uL Mean Platelet Volume 10.3 6.9-10.8 fL Neutrophils (%) (Auto) 62.5 37.0-80.0 % Lymphocytes (%) (Auto) 27.4 10.0-50.0 % Monocytes (%) (Auto) 8.0 0.0-12.0 % Eosinophils (%) (Auto) 1.7 0.0-7.0 % Basophils (%) (Auto) 0.4 0.0-2.0 % Neutrophils # (Auto) 4.6 1.6-8.6 10 ^3/uL Lymphocytes # (Auto) 2.0 0.4-5.4 10 ^3/uL Monocytes # (Auto) 0.6 0-1.3 10 ^3/uL Eosinophils # (Auto) 0.1 0-0.8 10 ^3/uL Basophils # (Auto) 0 0-0.2 10 ^3/uL Nucleated Red Blood Cells 0.0 % Phosphorus Level 6.5 H 2.4-5.1 mg/dL Thyroid Stimulating Hormone (TSH) 2.04 0.55-4.78 uIU/mL Test 11/25/24 18:59 Range/Units POC Glucose 87 70-106 mg/dl Microbiology Date/Time Source Procedure Growth Status 11/26/24 03:23 Nose MRSA Screen - Final Complete Assessment Severe hypocalcemia likely due to primary hypoparathyroidism Primary hypoparathyroidism Hypothyroidism Hyperphosphatemia CKD stage IIIA Vitamin-D deficiency Hypomagnesemia Seizure Intracranial calcification Schizophrenia Anxiety Depression Plan/assessment -Primary hypothyroidism: Consistent hypocalcemia with hyper phosphatase hernia with low parathyroid hormone: Continue calcium carbonate 500 mg p.o. t.i.d. -Vitamin-D deficiency: vitamin-D supplement with calcitriol 0.25 mg p.o. b.i.d. -Hypomagnesemia: Magnesium 800 mg p.o. once given, repeat magnesium tomorrow. -Repeat parathyroid hormone for monitoring -possible CKD altered mental disease and bone disorder with superimposed hypoparathyroidism: High-risk per nephrolithiasis given low parathyroid hormone. Possible intracranial calcification related to underlying CKD and chronic hypoparathyroidism. Neurological symptoms could be related to chronic complication of severe hypoparathyroidism. Goal to maintain parathyroid hormone, vitamin-D, phosphorus within normal limit. -hypothyroidism: Continue levothyroxine 10 mcg p.o. q.a.m.. TSH level within normal limit 2.04 . Plan discussed with: Patient, Other JASON MEDELLIN RESIDENT Nov 27, 2024 13:46
[2024-11-27] MEDS: MAGNESIUM OXIDE 400 MG TAB PO ONE (14:09)
[2024-11-27] MEDS ORDERED: ERGOCALCIFEROL 50,000 UNIT(1.25MG) CAP PO SCH (14:15)
[2024-11-27] MEDS: CALCITRIOL 0.25 MCG CAP PO SCH (15:15)
[2024-11-27 16:49] LABS: Hepatitis B Surface Antigen Negative (Negative)
[2024-11-27 17:13] LABS: Hepatitis C Antibody Negative (Negative)
[2024-11-28 01:00] VITALS: BP 102/64; PULSE 71; RESP 18; TEMP 98.4; O2SAT 98
[2024-11-28 05:00] VITALS: BP 110/68; PULSE 71; RESP 18; TEMP 98.1; O2SAT 99
[2024-11-28 06:38] LABS: Chloride 104 mmol/L (98-107); Potassium 3.8 mmol/L (3.5-5.1); Sodium 139 mmol/L (136-145)
[2024-11-28 06:39] LABS: Anion Gap 11 (5-15); Carbon Dioxide 24 mmol/L (20-31)
[2024-11-28 06:44] LABS: BUN/Creatinine Ratio 9.5 (10.0-20.0); Blood Urea Nitrogen 10 mg/dL (9-23); Glucose 82 mg/dL (74-106)
[2024-11-28 06:48] LABS: Calcium 7.8 mg/dL (8.7-10.4)
[2024-11-28 08:00] VITALS: PULSE 78
--- NOTE | 2024-11-28 08:09 | ECG ---
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
[2024-11-28 08:47] VITALS: BP 120/73; PULSE 78; RESP 18; TEMP 98.4; O2SAT 95
[2024-11-28] MEDS ORDERED: CALC-509 PO (12:15)
--- NOTE | 2024-11-28 12:19 | DVHDS2 ---
Discharge Summary Date of Admission Nov 25, 2024 at 21:18 Date of Discharge: Nov 28, 2024 Labs/Diagnostic Data: Laboratory Results Test 11/28/24 05:27 11/27/24 06:52 11/26/24 04:46 11/25/24 19:09 Sodium Level 139 mmol/L (136-145) Potassium Level 3.8 mmol/L (3.5-5.1) Chloride Level 104 mmol/L (98-107) Carbon Dioxide Level 24 mmol/L (20-31) Anion Gap 11 (5-15) Blood Urea Nitrogen 10 mg/dL (9-23) Creatinine 1.05 mg/dL (0.550-1.02) Glomerular Filtration Rate Calc 68 mL/min (>90) BUN/Creatinine Ratio 9.5 (10.0-20.0) Serum Glucose 82 mg/dL (74-106) Calcium Level 7.8 mg/dL (8.7-10.4) Magnesium Level 1.7 mg/dL (1.6-2.6) Total Bilirubin 0.3 mg/dL (0.2-1.0) Aspartate Amino Transferase (AST) 14 U/L (13-40) Alanine Aminotransferase (ALT) < 9 U/L (7-40) Alkaline Phosphatase 86 U/L (46-116) Total Protein 7.1 g/dL (5.7-8.2) Albumin 4.0 g/dL (3.2-4.8) Vitamin D 25-Hydroxy 48.6 ng/mL (30.0-100) Parathyroid Hormone (Intact) 5.6 pg/mL (18.4-80.1) White Blood Count 7.4 10^3/uL (4.4-10.8) Red Blood Count 3.02 10^6/uL (4.0-5.20) Hemoglobin 9.9 g/dL (12.2-16.2) Hematocrit 28.2 % (36.0-46.0) Mean Corpuscular Volume 93.6 fL (80.0-100.0) Mean Corpuscular Hemoglobin 32.7 pg (28.0-32.0) Mean Corpuscular Hemoglobin Concent 34.9 g/dL (32.0-36.0) Red Cell Distribution Width 14.0 % (11.8-14.3) Platelet Count 111 10^3/uL (140-450) Mean Platelet Volume 10.3 fL (6.9-10.8) Neutrophils (%) (Auto) 62.5 % (37.0-80.0) Lymphocytes (%) (Auto) 27.4 % (10.0-50.0) Monocytes (%) (Auto) 8.0 % (0.0-12.0) Eosinophils (%) (Auto) 1.7 % (0.0-7.0) Basophils (%) (Auto) 0.4 % (0.0-2.0) Neutrophils # (Auto) 4.6 10 ^3/uL (1.6-8.6) Lymphocytes # (Auto) 2.0 10 ^3/uL (0.4-5.4) Monocytes # (Auto) 0.6 10 ^3/uL (0-1.3) Eosinophils # (Auto) 0.1 10 ^3/uL (0-0.8) Basophils # (Auto) 0 10 ^3/uL (0-0.2) Nucleated Red Blood Cells 0.0 % Hepatitis B Surface Antigen Negative (Negative) Hepatitis C Antibody Negative (Negative) Phosphorus Level 6.5 mg/dL (2.4-5.1) Thyroid Stimulating Hormone (TSH) 2.04 uIU/mL (0.55-4.78) Test 11/25/24 18:59 POC Glucose 87 mg/dl (70-106) Other Laboratory Tests 11/28/24 05:27 11/26/24 04:46 Brief Hx & Hospital Course: History of Present Illness The patient is a 39-year-old female with multiple past medical history including CHF, anxiety, diabetes mellitus, schizophrenia, and seizures who presented to [facility] ED with complaint of tremors. Patient was picked up at a board and care facility given a change in patient's condition including tremors, facial numbness, twisting, anxious, and generalized weakness. Patient was seen and evaluated in the ED, laboratory data shows WBC 8.4, platelets 134, sodium 139, potassium 3.6, BUN 14, creatinine 1.28, glucose 97, calcium 5.7, phosphorus 6.5, magnesium 1.3, blood pressure 131/85, heart rate 114, temperature 98.1 F, O2 saturation 94% on room air. Head CT showed no acute intracranial hemorrhage. Please see medication orders section in the computer. On my assessment, patient denied chest pain, no headache, no dizziness, no diaphoresis, no shortness of breaths, no nausea, no vomiting, no fever, no chills. Patient was admitted for further evaluation and medical management. Course of hospitalization: Patient was given both IV and oral calcium supplementation. Patient no longer exhibiting cramping, facial twitching. Calcium level now 7.8. Endocrinology was consulted regarding hypoparathyroidism. Recommendations reviewed. Patient will now be discharged home as instructed to follow up with her PCP in 1-2 weeks as well as endocrinology in the next 3-4 weeks. Patient will be continued on calcium carbonate supplementation t.i.d. until having further follow up with her primary care doctor in the [place]. She is agreeable with discharge plan. All questions answered. Physical examination General: Alert and Oriented x3. No acute distress. Well-nourished. Eyes: EOMI. Anicteric. HENT: Moist mucous membranes. Lungs: Clear to auscultation bilaterally. No accessory muscle use. Cardiovascular: Regular rate and rhythm. No murmur. No JVD. Abdomen: Soft, non-tender and non-distended. No palpable masses. Extremities: No edema. Non-tender. Skin: No rashes or lesions. Warm. Neurologic: No focal neurological deficits. CN II-XII grossly intact, but not individually tested. Psychiatric: Cooperative. Appropriate mood and affect. Total time spent with patient discussing and formulating plan of care: 35 minutes. This medical document was created using an electronic medical record system with [employer] dictation system. Although this document has been carefully reviewed, there may still be some phonetic and typographical errors. These areas are purely typographical due to imperfections of the software programs, and do not reflect any compromise in the patient's medical care. Consults/Reason for consult Endocrinology: Repeat admission for hypocalcemia secondary to hypoparathyroidism Condition at Discharge: Fair Final Diagnosis/Problems List Hypocalcemia secondary to hypoparathyroidism -developmentally delayed -schizoaffective disorder -primary hypertension Discharge Disposition: Home Discharge Instruct/Medications Follow Up/Referral: PCP in 1-2 weeks Endocrinology in 3-4 weeks Medications: Continue all previous home medications Calcium 500 mg p.o. t.i.d. Scheduled Atorvastatin Calcium (Atorvastatin Calcium), 1 TAB PO DAILY, (Reported) Calcium Carbonate-Cholecalcife (Calcium 500 +D3 500-600 mg-Unit), 1 TAB PO DAILY Calcium Carbonate-Cholecalcife (Calcium 500 + D 500-200 mg-Unit), 1 TAB PO TID Divalproex Sodium (Divalproex Sodium), 1 TAB PO BID, (Reported) Docusate Sodium (Docusate Sodium), 1 PO DAILY, (Reported) Ergocalciferol (Vitamin D 39027 Unit), 50,000 UNIT PO Q7D Famotidine (Famotidine), 1 TAB PO BID, (Reported) Ferrous Sulfate (Ferosul), 1 TAB PO DAILY, (Reported) Hydroxyzine HCl (Hydroxyzine Hydrochloride), 1 TAB PO BID, (Reported) Levetiracetam (Levetiracetam), 1 TAB PO BID, (Reported) Levothyroxine Sodium (Levothyroxine Sodium), 1 TAB PO QAM, (Reported) Omeprazole (Omeprazole Dr), 1 CAP PO DAILY, (Reported) Potassium Chloride (Potassium Chloride ER), 10 MEQ PO BID Quetiapine Fumerate (Quetiapine Fumarate), 1 TAB PO BID, (Reported) Senna (Senna), 2 TAB PO BID, (Reported) Sertraline Hcl (Sertraline Hcl), 1 TAB PO DAILY, (Reported) Spironolactone (Aldactone), 25 MG PO DAILY Spironolactone (Spironolactone), 1 TAB PO DAILY, (Reported) Trazodone Hcl (Trazodone Hcl), 1 TAB PO QPM Scheduled PRN Zolpidem Tartrate (Zolpidem Tartrate), 2 TAB PO HSPRN PRN, (Reported) Miscellaneous Medications Risperidone (Risperidone), PO, (Reported) Durable Medical Equipment Elastic Bandages & Supports (Medical Compression Stock), UNITS XX, (DME) 36 Discharge Statement: "Patient was advised to return to the ER or call 911 if any headaches, dizziness, shortness of breath, chest pain, abdominal pain, bleeding, fevers, or worsening of medical condition. Patient was counseled about treatment plan, medications, possible side effects, patientverbalized understanding. All questions were answered to the best of my ability. This discharge took greater then 30 minutes in planning, reviewing documentation, counseling the patient, and discussing with other team members." ASSESSMENT ASSESSMENT Assessment Date of Service: Nov 28, 2024 Billing Provider: VALENTE HARRIS NP Common Visit Codes: 10311-MMZ/OBS DISCH DAY >30min VALENTE HARRIS NP Nov 28, 2024 12:19
[2024-11-28 13:00] VITALS: BP 115/65; PULSE 63; RESP 15; TEMP 98.1; O2SAT 96
--- NOTE | 2024-11-28 13:40 | DVHPNRES ---
Progress Note Date Seen: Nov 28, 2024 Resident Creating Document: JASON MEDELLIN RESIDENT Medical Necessity Reason Pt with a Central, PICC or Fol: No Subjective Review of Systems patient seen and examined at bedside no new complains Review of Systems ROS Constitutional: No: Fever, Chills, Sweats, Weakness, Malaise, Other Eyes: No: Pain, Vision change, Conjunctivae inflammation, Eyelid inflammation, Other, Redness ENT: No: Ear pain, Ear discharge, Nose pain, Nose discharge, Nose congestion, Mouth pain, Mouth swelling, Throat pain, Throat swelling, Other Respiratory: No: Cough, Dry, Shortness of breath, SOB with excertion, Wheezing, Hemoptysis, Pleuritic Pain, Sputum, Wheezing, Other Cardiovascular: No: Chest Pain, Palpitations, Orthopnea, Paroxysmal Noc. Dyspnea, Edema, Lt Headedness, Other Gastrointestinal: No: Nausea, Vomiting, Abdominal Pain, Diarrhea, Constipation, Melena, Hematochezia, Other Musculoskeletal: No: other, neck pain, shoulder pain, arm pain, back pain, hand pain, leg pain, foot pain Neurological:; No: Weakness, Numbness, Incoordination, Change in speech, Confusion, Seizures Objective vital signs Vital Sign Date Time Temp Pulse Resp B/P (MAP) Pulse Ox O2 Delivery O2 Flow Rate FiO2 11/28/24 11:20 63 115/65 11/28/24 08:47 98.4 18 95 98.4 11/27/24 20:00 Room Air* 0 21 Total Intake and Output 11/27/24 11/27/24 11/28/24 15:00 23:00 07:00 Intake Total 1250 ml 600 ml Balance 1250 ml 600 ml medications Current Medications Medications Dose Ordered Sig/Ailyn Route Start Time Stop Time Status Last Admin Dose Admin Levothyroxine Sodium 100 mcg QAM@0600 PO 11/26/24 06:00 11/28/24 06:07 100 MCG Levetiracetam 100 ml @ 400 mls/hr BID IV 11/25/24 22:00 11/28/24 11:30 400 MLS/HR Sertraline HCl 25 mg DAILY PO 11/26/24 10:00 11/28/24 10:22 25 MG Atorvastatin Calcium 20 mg HS PO 11/25/24 22:00 11/27/24 21:45 20 MG Divalproex Sodium 500 mg BID PO 11/25/24 22:00 11/28/24 10:23 500 MG Calcium Carbonate 500 mg TIDWM PO 11/26/24 08:00 11/28/24 09:01 500 MG Sodium Chloride 1,000 ml @ 60 mls/hr [id number] IV 11/25/24 20:30 11/27/24 05:58 60 MLS/HR Acetaminophen/ Hydrocodone Bitart 1 tab Q4HP PRN PO 11/25/24 20:30 Ondansetron HCl 4 mg Q4HP PRN IV 11/25/24 20:30 Docusate Sodium 100 mg BIDPRN PRN PO 11/25/24 20:30 Acetaminophen 650 mg Q6HP PRN PO 11/25/24 20:30 11/26/24 17:47 650 MG Famotidine 20 mg DAILY IV 11/26/24 10:00 11/28/24 11:30 20 MG Metoprolol Tartrate 25 mg BID PO 11/25/24 22:00 11/28/24 10:20 25 MG Hydralazine HCl 10 mg Q6HP PRN IV 11/25/24 20:45 Nitroglycerin 0.4 mg Q5MINP PRN SL 11/25/24 21:30 Morphine Sulfate 2 mg Q30M PRN IV 11/25/24 21:30 Calcitriol 0.25 mcg BID PO 11/27/24 15:15 11/28/24 10:26 0.25 MCG Examination Examination General Appearance: Alert, Oriented X3, Cooperative, No acute distress HEENT: EOMI Respiratory: Clear to auscultation, Normal air movement Cardiovascular: Regular rate, Normal S1, Normal S2 Abdominal: Normal bowel sounds Extremities: No cyanosis, No edema, Normal pulses, No tenderness/swelling Skin: No rashes, No breakdown Neuro: Normal gait, Normal speech, Strength at 5/5 X4 ext, Normal tone, Sensation intact, Cranial nerves 3-12 NL, Reflexes 2+ Psych/Mental Status: Mental status NL, Mood NL laboratory and microbiology Laboratory Tests 11/28/24 05:27 11/26/24 04:46 Test 11/28/24 05:27 Range/Units Serum Glucose 82 74-106 mg/dL Microbiology Date/Time Source Procedure Growth Status 11/26/24 03:23 Nose MRSA Screen - Final Complete Problem List/Assessment/Plan Problem List/Assessment/Plan Severe hypocalcemia likely due to primary hypoparathyroidism Primary hypoparathyroidism Hypothyroidism Hyperphosphatemia CKD stage IIIA Vitamin-D deficiency Hypomagnesemia Seizure Intracranial calcification Schizophrenia Anxiety Depression Plan/assessment -Primary hypothyroidism: Consistent hypocalcemia with hyper phosphatase hernia with low parathyroid hormone: Continue calcium carbonate 500 mg p.o. t.i.d. -low PTH: calcitriol 0.25 mg p.o. b.i.d. -Hypomagnesemia: Magnesium 800 mg p.o. once given, repeat magnesium tomorrow. -Repeat parathyroid hormone for monitoring -possible CKD altered mental disease and bone disorder with superimposed hypoparathyroidism: High-risk per nephrolithiasis given low parathyroid hormone. Possible intracranial calcification related to underlying CKD and chronic hypoparathyroidism. Neurological symptoms could be related to chronic complication of severe hypoparathyroidism. Goal to maintain parathyroid hormone, vitamin-D, phosphorus within normal limit. -hypothyroidism: Continue levothyroxine 10 mcg p.o. q.a.m.. TSH level within normal limit 2.04 . -Follow up with endocrine clinic in 2-3 weeks. Plan discussed with: Patient, Other (RN) My Orders My Orders Orders - JASON MEDELLIN RESIDENT Procedure Category Date Status Time Calcitriol Capsule PHA 11/27/24 In Process (Rocaltrol Capsule) 15:15 JASON MEDELLIN RESIDENT Nov 28, 2024 13:40
[2024-11-28 13:47] VITALS: BP 115/65; PULSE 63; TEMP 36.9
== END 2024-11-28 15:10 | disposition home or self-care (01) | DRG 644 ==
LOC: ER 18:12 → EDBD 18:12 → EDUNIT# 18:12 → OVERFLOW 21:18 → TELE-WESTW 22:26
PROVIDERS: ADMIT Nurse Practitioner Acute Care; ATTEND Nurse Practitioner Acute Care
DX: E20.9 Hypoparathyroidism, unspecified (principal); I13.0 Hypertensive heart and chronic kidney disease with heart failure and stage 1 through stage 4 chronic kidney disease, or unspecified chronic kidney disease; F25.9 Schizoaffective disorder, unspecified; E03.9 Hypothyroidism, unspecified; N18.31 Chronic kidney disease, stage 3a; F41.9 Anxiety disorder, unspecified; E11.22 Type 2 diabetes mellitus with diabetic chronic kidney disease; F31.9 Bipolar disorder, unspecified; G25.0 Essential tremor; R56.9 Unspecified convulsions; R62.50 Unspecified lack of expected normal physiological development in childhood; I50.9 Heart failure, unspecified; E78.5 Hyperlipidemia, unspecified; Z79.899 Other long term (current) drug therapy; Z90.49 Acquired absence of other specified parts of digestive tract; Z82.0 Family history of epilepsy and other diseases of the nervous system
CPT/HCPCS: 36415; 70450; 80048; 80053; 82306; 82962; 83735; 83970; 84100; 84443; 85025; 86803; 87081; 87340; 93005; 96365; 96366; 96368; G0378; J3490

== ENCOUNTER 2024-11-30 22:51 | Emergency (ER) | payer MEDICAID ==
[~2024-11-30] VITALS: Ht 157.5 cm; Wt 100.0 kg
[~2024-11-30 22:51] MED LIST changes: +CALC-509 PO; +OMEP10CA5 PO; +RISP4TAB53 PO; +SPIR25TA8 PO
--- NOTE | 2024-11-30 23:05 | ED.PDOC ---
Psychiatric HPI Comments 39-year-old female who came to ER via EMS for anxiety. Patient resides at the [facility], has a history of anxiety, schizophrenia, and bipolar disorder. Patient claims for the past few hours, she has been having auditory and visual hallucinations, she has been unable to sleep. She denies being suicidal or homicidal. REVIEW OF SYSTEMS: General: No fever, no chills, or fatigue HEENT: No sore throat, no earache, no congestion, no neck pain. Cardiac: No chest pain. No palpitations. Lungs: No shortness of breath, no cough. GI: No nausea, no vomiting, no diarrhea, no constipation, no abdominal pain : No dysuria, frequency, or urgency. No hematuria. Musculoskeletal: No joint pain , no joint swelling, no extremity edema. Skin: No rash, no itching. Neuro: No headache, no dizziness, no weakness Psych: (+) Hallucinations, (+) sleepless, (+) anxiety PHYSICAL EXAM: General: Awake, alert and oriented. No acute distress. Skin: Skin in warm, dry and intact without rashes or lesions. HEENT: The head is normocephalic and atraumatic. Conjunctivae are clear without exudates or hemorrhage. Sclera is non-icteric. Neck: Normal range of motion. No JVD. Cardiac: Regular rate Respiratory: No signs of respiratory distress. No Stridor. Extremities: Upper and lower extremities are atraumatic in appearance without deformity. Neurological: The patient is awake, alert and oriented to person, place, and time with normal speech. Speech is clear. There is no facial asymmetry. Psychiatric: Appropriate mood and affect. Chief Complaint: Anxiety Time Seen by MD: 23:04 Reviewed Notes: Nurses Notes Information Source: Patient Mode of Arrival: EMS Severity: Unable to Care for Self, Unable to Control Self Severity of Pain: Moderate Severity of Mental Status: Moderate Severity of Symptoms: Moderate Timing: Hours Duration: Intermittent Prehospital treatment: None Presents with: Anxiety, Unclear Thinking Circumstance: Causing a Disturbance History of: Anxiety, Schizophrenia, Bipolar Quality: Confusion, Hallucinations Associated signs and symptoms: Anxiety, Hallucinations Past Medical History PAST MEDICAL HISTORY: Anxiety, CHF, CKF, DM, High Lipids, HTN, Schizophrenia, Seizures, Thyroid Past Medical History (Other): Bipolar disorder Surgical History: Cholecystectomy CONTINUITY WRITER History: Denies all 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 Was a procedure done?: No Psych Differential Dx Psych. Differential Dx: Anxiety, Bipolar Disorder, Depression, Panic Disorder, Schizoprenia, Sleepless X-Ray, Labs, Meds, VS Vital Signs Date Time Temp Pulse Resp B/P (MAP) Pulse Ox O2 Delivery O2 Flow Rate FiO2 12/01/24 01:56 98.4 95 19 112/65 (81) 100 98.4 11/30/24 22:55 98.5 110 18 128/83 99 98.5 Lab Test 12/01/24 03:00 12/01/24 01:36 12/01/24 00:30 11/30/24 23:23 Range/Units Troponin I High Sensitivity < 3 L 3 L 3 L </=34 ng/L Urine Color Yellow Yellow Urine Clarity Turbid H Clear Urine pH 6.0 5.0-9.0 Urine Specific Merom 1.025 1.001-1.035 Urine Protein Trace H Negative Urine Ketones Trace Negative Urine Blood Negative Negative /uL Urine Nitrite Negative Negative Urine Bilirubin Negative Negative Urine Urobilinogen Normal Negative mg/dL Urine Leukocyte Esterase 2+ Negative /uL Urine RBC 1 0 - 4 /hpf Urine Microscopic WBC 38 H 0-5 /HPF Urine Squamous Epithelial Cells Mod <5 /hpf Urine Bacteria None seen None Seen /hpf Urine Glucose Normal Normal mg/dL Urine Test Negative Negative Urine Opiates Screen Neg NEGATIVE Urine Fentanyl Screen Neg NEGATIVE Urine Barbiturates Screen Neg NEGATIVE Urine Phencyclidine Screen Neg NEGATIVE Urine Amphetamines Screen Neg NEGATIVE Urine Benzodiazepines Screen Neg NEGATIVE Urine Cocaine Screen Neg NEGATIVE Urine Cannabinoids Screen Neg NEGATIVE White Blood Count 5.7 4.4-10.8 10^3/uL Red Blood Count 3.30 L 4.0-5.20 10^6/uL Hemoglobin 10.5 L 12.2-16.2 g/dL Hematocrit 30.6 L 36.0-46.0 % Mean Corpuscular Volume 92.7 80.0-100.0 fL Mean Corpuscular Hemoglobin 31.9 28.0-32.0 pg Mean Corpuscular Hemoglobin Concent 34.4 32.0-36.0 g/dL Red Cell Distribution Width 14.0 11.8-14.3 % Platelet Count 119 L 140-450 10^3/uL Mean Platelet Volume 9.5 6.9-10.8 fL Neutrophils (%) (Auto) 57.7 37.0-80.0 % Lymphocytes (%) (Auto) 29.6 10.0-50.0 % Monocytes (%) (Auto) 10.2 0.0-12.0 % Eosinophils (%) (Auto) 2.1 0.0-7.0 % Basophils (%) (Auto) 0.4 0.0-2.0 % Neutrophils # (Auto) 3.3 1.6-8.6 10 ^3/uL Lymphocytes # (Auto) 1.7 0.4-5.4 10 ^3/uL Monocytes # (Auto) 0.6 0-1.3 10 ^3/uL Eosinophils # (Auto) 0.1 0-0.8 10 ^3/uL Basophils # (Auto) 0 0-0.2 10 ^3/uL Nucleated Red Blood Cells 0.0 % Sodium Level 140 136-145 mmol/L Potassium Level 3.5 3.5-5.1 mmol/L Chloride Level 103 98-107 mmol/L Carbon Dioxide Level 26 20-31 mmol/L Anion Gap 11 5-15 Blood Urea Nitrogen 14 9-23 mg/dL Creatinine 1.23 H 0.550-1.02 mg/dL Glomerular Filtration Rate Calc 57 >90 mL/min BUN/Creatinine Ratio 11.4 10.0-20.0 Serum Glucose 98 74-106 mg/dL Calcium Level 6.7 L 8.7-10.4 mg/dL Plasma/Serum Blood Alcohol < 3.0 <10 mg/dL Current Medications Medications (Trade) Dose Ordered Sig/Ailyn Route Start Time Stop Time Status Last Admin Calcium Carbonate (Tums) 500 mg ONCE ONCE PO 12/01/24 01:15 12/01/24 01:17 DC 12/01/24 03:27 Acetaminophen (Tylenol Tablet Or Capsule) 1,000 mg ONCE ONCE PO 12/01/24 01:15 12/01/24 01:16 DC 12/01/24 03:27 Time of 1ST Reevaluation: 23:01 Reevaluation 1ST: Unchanged Patient Education/Counseling: Need For Follow Up Family Education/Counseling: No Family Present Departure 1 Departure Time of Disposition: 05:10 Impression: Primary Impression: Anxiety Additional Impressions: Difficulty sleeping Hearing voices Disposition: 01 HOME / SELF CARE / HOMELESS Condition: Stable Additional Instructions: ED DISCHARGE INSTRUCTIONS Instructions: Please read all instructions provided in this packet carefully. Although you have been discharged from the Emergency Department, this does not mean that you have a "clean bill of health". It is possible that you are in the process of developing a serious illness. This is why you must return to the ED without fail if any new or worsening symptoms (especially if your symptoms include thoughts of harming yourself, thoughts of harming others, chest pain, trouble breathing, abdominal pain, fever, headache, confusion, trouble seeing, or trouble walking) It is also very important that you see a primary care provider (PCP) within the next 3-5 days to follow up. If you are unable to get an appointment, return to the ED for re-evaluation. Comments Patient evaluated by Psychiatry, recommendation at this time as the medication change and discharge. Patient well-appearing, nontoxic. Advised prompt follow-up with PCP, return to the ED with any new, worsening or concerning symptoms. Extensive evaluation was performed in attempt to identify or rule out: (See differential diagnosis section) The following tests were ordered, and results were reviewed by me and discussed with patient: (See diagnostic results section) Additional information was gathered from interviewing the following independent historians: EMS personnel Decision regarding hospitalization or escalation of hospital level of care: Risks and benefits of admission for further treatment of patient's condition was considered however due to patient's stable condition patient will be discharged to follow up closely or return to care for worsening of condition or inability to follow up. Critical Care Note Critical Care Time?: No Stability Stability form required: No Heart Score Heart Score: Heart Score Response (Comments) Value History N/A 0 EKG N/A 0 Age N/A 0 Risk Factors N/A 0 Troponin N/A 0 Total 0 I personally scribed for AGUSTÍN CARMONA MD ([email or web address]) on 11/30/24 at 23:05. Electronically submitted by Brennon Salinas ([facility]). AGUSTÍN CARMONA MD Nov 30, 2024 23:05
[2024-11-30 23:37] LABS: Hematocrit 30.6 % (36.0-46.0); Hemoglobin 10.5 g/dL (12.2-16.2); Mean Corpuscular Hemoglobin 31.9 pg (28.0-32.0); Mean Corpuscular Volume 92.7 fL (80.0-100.0); Nucleated Red Blood Cells % 0.0 %
[2024-11-30 23:46] LABS: Chloride 103 mmol/L (98-107); Potassium 3.5 mmol/L (3.5-5.1); Sodium 140 mmol/L (136-145)
[2024-11-30 23:47] LABS: Anion Gap 11 (5-15); Carbon Dioxide 26 mmol/L (20-31)
[2024-11-30 23:48] LABS: Calcium 6.7 mg/dL (8.7-10.4)
[2024-11-30 23:52] LABS: BUN/Creatinine Ratio 11.4 (10.0-20.0); Blood Urea Nitrogen 14 mg/dL (9-23); Glucose 98 mg/dL (74-106)
[2024-12-01 01:31] LABS: Urine Protein, UAD TRACE (Negative)
[2024-12-01 01:39] LABS: Barbiturate Scree,Urine Neg (NEGATIVE); Benzodiazephine Screen, Urine Neg (NEGATIVE)
--- NOTE | 2024-12-01 01:40 | DVH ---
CHEST RADIOGRAPH Indication: Chest Pain Technique: Single frontal view of the chest was obtained COMPARISON: XY CHEST XRAY 1 VIEW on DOS: 10/20/24, XY CHEST PORTABLE on DOS: 10/03/24, XY CHEST PORTABL E on DOS: 08/28/24, XY CHEST TWO VIEWS ROUTINE on DOS: 08/23/24 FINDINGS: Cardiac silhouette is enlarged with diffuse prominence of the pulmonary vasculature. No focal airspac e disease or pleural effusions. Bones and soft tissues demonstrate no significant abnormality. IMPRESSION: Cardiomegaly with pulmonary venous congestion.
[2024-12-01 01:41] LABS: Amphetamine Screen, Urine Neg (NEGATIVE); Cannabinoid Screen, Urine Neg (NEGATIVE); Cocaine Screen, Urine Neg (NEGATIVE); Opiate Scree,Urine Neg (NEGATIVE); Phencyclidine Screen, Urine Neg (NEGATIVE)
[2024-12-01] MEDS: ACETAMINOPHEN 500 MG TAB or CAP PO ONE (03:27)
[2024-12-01] MEDS: CALCIUM CARB 500 MG CHEW TAB PO ONE (03:27)
--- NOTE | 2024-12-01 04:29 | DVHINCON2 ---
Date of Service if different f: Dec 01, 2024 Time of Service: 04:26 Consult Consult Note PSYCHIATRY ED NEW CONSULT HPI: 39 yo pt with PPH of depression, schizophrenia, and anxiety and PMH of seizure disorder presents to ED BIBA for safety, psychiatric stabilization, and possible med initiation/optimization in setting of AH and anxiety. Psychiatry consulted for safety evaluation and recommendations in context of current presentation. Of note, pt w/freq ED visits for similar cc/presentation Pt reports over past several weeks experiencing ongoing vague NC/NT AVH worse at night resulting in poor sleep and anxiety. Denies depressed mood, hopelessness, helplessness, isolation, negative thoughts, or anhedonia. Denies OCD/PTSD symptoms. Also deniesparanoia/catatonic/manic symptoms. Adamantly denies SI/HI. No overt manic, psychotic, MDD, cognitive, dissociative, panic, OCD, PTSD, or somatic symptoms noted. Overall appears fu ture oriented/goal directed. Denies acute psychosocial stressors Does active outpt MH services established at this time (both therapy/psychiatry services) with upcoming appt next month Currently rx'd Depakote 500 mg bid, Quetiapine 400 mg bid, Hydroxyzine 50 mg bid, Trazodone PRN, overall med compliant with modest therapeutic effects DORYS hx: Denies ETOH, THC or IDU SH: Single, no children, unemployed/ssi, resides at [facility] for many years, some support system noted (immediate family). Unknown trauma hx FH: Denies FH of psych hospitalizations, suicide attempts, or completed suicides PMH: No acute medical/chronic pain issues or recent head injuries, NKDA Some hx of SI but denies hx of SIB/SA/PSG although hx of prior psych hospitalizations. Denies history of violence, aggression, or assaultive behaviors. Denies recent hx of impulsivity, attention seeking behaviors, anger outbursts, emotional dysregulation, mood reactivity,or engaging in risky or reckless behaviors. Denies any legal problems. Does not have access to firearms. No acute safety concerns noted during encounter MSE: General Appearance/Behavior: Alert/awake; appears stated age, overweight, fair grooming/hygiene; calm/polite and cooperative, fair eye contact, no PMA/PMR Speech: coherent, rrr Thought Process: L/L/GD, bit concrete Thought Content: Abnormal Thoughts/Perceptions: denies dissociative symptoms Homicidality / Violent Thoughts: adamantly denies HI Suicidality: adamantly denies SI Hallucinations: denies AVTH presently Delusions: denies paranoia, persecutory, or grandiose delusions Obsessions /compulsions: None Judgment/Insight: marginal/limited Mood & Affect: "okay" with mood-congruent, appropriate Orientation: oriented x 3 Attention/Concentration: appears intact Cognition: grossly intact Assessment: 39 yo pt with PPH of depression, schizophrenia, and anxiety and PMH of seizure disorder presents to ED BIBA for safety, psychiatric stabilization, and possible med initiation/optimization in setting of AH and anxiety. Of note, pt w/freq ED visits for similar cc/presentation Currently denies SI/HI/AVH. No hx of SA/SIB/violence/physical aggression or prior psych hospitalizations is reassuring. Pt medically cleared Does not presently show any signs of immediate danger to self/others or GD that would necessitate 5150 or involuntary psych admission. No acute safety concerns noted. Acute suicide/violence risk appears nonexistent to relatively low Pts symptoms should be managed safely in an outpatient setting - Plans to follow-up over next several weeks with outpt MH providers for ongoing med management/psychotx Currently rx'd Depakote 500 mg bid, Quetiapine 400 mg bid, Hydroxyzine 50 mg bid, Trazodone PRN. No indication to change current med regimen Primary Diagnosis: Schizophrenia unspecified. Anxiety d/o unspecified Plan: Does not warrant involuntary inpatient psychiatric hospitalization or 5150 hold No acute safety concerns Pt can be safely discharged back to current residence Resume above current outpatient psychotropics No med changes or additional meds needed at this time Supportive tx and reassurance provided Pt plans to f/u with outpatient MH providers over next several weeks for ongoing therapy/med management Encouraged f/u with PCP for routine medical/preventive care Instructed pt to call/text [phone] or return to ED if MH symptoms worsen or new onset SI/HI upon discharge Pt verbalized understanding and is receptive to above tx plan This case was discussed with ED nurse/provider and all parties in agreement with above tx plan Ankit Pandya MD Plan discussed with: Patient ANKIT PANDYA MD Dec 01, 2024 04:28
[2024-12-01 05:40] VITALS: BP 134/84; PULSE 93; RESP 18; TEMP 98.1; O2SAT 100
== END 2024-12-01 05:12 | disposition home or self-care (01) ==
LOC: ER 22:51 → EDBD 22:51 → ER 12-01 05:12
DX: F41.9 Anxiety disorder, unspecified (principal); G47.9 Sleep disorder, unspecified; R44.0 Auditory hallucinations; E78.5 Hyperlipidemia, unspecified; I13.0 Hypertensive heart and chronic kidney disease with heart failure and stage 1 through stage 4 chronic kidney disease, or unspecified chronic kidney disease; E11.22 Type 2 diabetes mellitus with diabetic chronic kidney disease; N18.9 Chronic kidney disease, unspecified; I50.9 Heart failure, unspecified; F31.9 Bipolar disorder, unspecified; Z90.49 Acquired absence of other specified parts of digestive tract
CPT/HCPCS: 36415; 71045; 80048; 80307; 80320; 81001; 81025; 84484; 85025